=== PATIENT | female | born 1935 | race Caucasian/White ===

== ENCOUNTER 2016-02-07 14:35 | Emergency (ER) | payer MEDICARE, OTHER ==
--- NOTE | 2016-02-07 15:17 | ER Document Report ---
ED Medical Screen (RME) - General Chief Complaint: Cough Stated Complaint: COUGH/BACK PAIN Mode of Arrival: Ambulatory Information source: Patient Notes: Patient presents complaining of cough and low back pain for the past week. Patient denies any urinary symptoms or fever. Patient states cough has been productive. hx: Diabetes, COPD TRAVEL OUTSIDE OF THE [place] IN LAST 30 DAYS: No - Related Data Allergies/Adverse Reactions: gentamicin [Gentamicin] Allergy (Mild, Verified 01/29/16 00:19) UNK latex [Latex] Allergy (Mild, Verified 01/29/16 00:19) RASH metronidazole [From Flagyl] Allergy (Mild, Verified 01/29/16 00:19) Nausea Metronidazole HCl [From Flagyl] Allergy (Mild, Verified 01/29/16 00:19) Nausea Penicillins Allergy (Mild, Verified 01/29/16 00:19) THROAT SWELLS Past Medical History - Past Medical History Cardiac Medical History: Reports: Hx Coronary Artery Disease, Hx Hypertension - MEDICATED Denies: Hx Heart Attack Pulmonary Medical History: Reports: Hx Asthma - MEDICATED, Hx COPD - SPIRIVIA Denies: Hx Bronchitis, Hx Pneumonia Neurological Medical History: Denies: Hx Cerebrovascular Accident, Hx Seizures GI Medical History: Denies: Hx Hepatitis, Hx Hiatal Hernia, Hx Ulcer Musculoskeltal Medical History: Reports Hx Arthritis Infectious Medical History: Denies: Hx Hepatitis Past Surgical History: Reports: Hx Hysterectomy. Denies: Hx Mastectomy, Hx Open Heart Surgery, Hx Pacemaker - Immunizations Hx Diphtheria, Pertussis, Tetanus Vaccination: No - UNSURE Physical Exam - Vital signs Vitals: Pulse BP Pulse Ox 90 121/78 96 02/07/16 14:44 02/07/16 14:44 02/07/16 14:44 - Back Back: Tender - Lumbar paraspinal tenderness Course - Vital Signs Vital signs: Temp Pulse Resp BP Pulse Ox 93.0 F L 90 20 121/78 98 02/07/16 14:45 02/07/16 14:45 02/07/16 14:45 02/07/16 14:45 02/07/16 14:45
[2016-02-07 16:45] LABS: ABSOLUTE EOSINOPHILS # (AUTO) 0.2 10^3/uL (0.0-0.6); ABSOLUTE LYMPHOCYTES (AUTO) 2.1 10^3/uL (0.5-4.7); ABSOLUTE MONOCYTES (AUTO) 0.8 10^3/uL (0.1-1.4); BASOPHILS % (AUTO) 0.5 % (0-2); EOSINOPHILS % (AUTO) 2.8 % (0-6); HEMATOCRIT 45.7 % (36.0-47.0); HEMOGLOBIN 15.5 g/dL (12.0-15.5); HGB HCT DIFFERENCE 0.8; LYMPHOCYTES % (AUTO) 25.1 % (13-45); MEAN CORPUSCULAR HEMOGLOBIN 29.1 pg (27.0-33.4); MEAN CORPUSCULAR HGB CONC 33.9 g/dL (32.0-36.0); MEAN CORPUSCULAR VOLUME 86 fl (80-97); MONOCYTES % (AUTO) 10.3 % (3-13); RED BLOOD COUNT 5.31 10^6/uL (3.72-5.28); RED CELL DISTRIBUTION WIDTH 14.7 % (11.5-14.0); SEGMENTED NEUTROPHILS % (AUTO) 61.3 % (42-78); WHITE BLOOD COUNT 8.2 10^3/uL (4.0-10.5)
[2016-02-07 17:01] LABS: ALANINE AMINOTRANSFERASE 31 U/L (9-52); ALBUMIN 4.5 g/dL (3.5-5.0); ALKALINE PHOSPHATASE 92 U/L (38-126); ANION GAP 15 (5-19); ASPARTATE AMINO TRANSFERASE 24 U/L (14-36); BILIRUBIN,TOTAL 1.2 mg/dL (0.2-1.3); BLOOD UREA NITROGEN 16 mg/dL (7-20); CALCIUM 10.2 mg/dL (8.4-10.2); CARBON DIOXIDE 32 mmol/L (22-30); CHLORIDE 95 mmol/L (98-107); CREATININE RESULT 0.89 mg/dL (0.52-1.25); GLUCOSE 127 mg/dL (75-110); LIPASE 110.5 U/L (23-300); POTASSIUM 3.6 mmol/L (3.6-5.0); SODIUM 142.3 mmol/L (137-145); TOTAL PROTEIN 7.1 g/dL (6.3-8.2)
[2016-02-07 17:10] LABS: APPEARANCE,URINE SLIGHTLY-CLOUDY; BILIRUBIN,URINE NEGATIVE (NEGATIVE); GLUCOSE, URINE NEGATIVE (NEGATIVE); KETONES,URINE NEGATIVE (NEGATIVE); LEUKOCYTE ESTERASE,URINE LARGE (NEGATIVE); NITRITE,URINE NEGATIVE (NEGATIVE); PROTEIN,URINE NEGATIVE (NEGATIVE); URINE SPECIFIC GRAVITY 1.013; UROBILINOGEN,URINE NEGATIVE mg/dL (<2.0)
[2016-02-07 18:59] VITALS: BP 135/75
[2016-02-07] MEDS ORDERED: DOXYCYCLINE HYCLATE 100 MG TABLET PO ONE (18:59)
--- NOTE | 2016-02-07 19:13 | ER Document Report ---
ED General - General Chief Complaint: Cough Stated Complaint: COUGH/BACK PAIN Mode of Arrival: Ambulatory TRAVEL OUTSIDE OF THE [place] IN LAST 30 DAYS: No - HPI Patient complains to provider of: productive cough diffuse arthralgias and myalgias Notes: Patient with a history of COPD presents with a history of productive cough diffuse myalgias or arthralgias ongoing since January 28 was seen by primary ostomy care nurse and was given prednisone and call syrup with codeine states no improvement of symptoms. Three-day course of steroids ending on the . Patient denies fevers chills. Patient also states lower back pain possible and possible some dysuria. Otherwise patient by evaluation nontoxic looking able to form sentences. No signs of respiratory distress - Related Data Allergies/Adverse Reactions: gentamicin [Gentamicin] Allergy (Mild, Verified 01/29/16 00:19) UNK latex [Latex] Allergy (Mild, Verified 01/29/16 00:19) RASH metronidazole [From Flagyl] Allergy (Mild, Verified 01/29/16 00:19) Nausea Metronidazole HCl [From Flagyl] Allergy (Mild, Verified 01/29/16 00:19) Nausea Penicillins Allergy (Mild, Verified 01/29/16 00:19) THROAT SWELLS Past Medical History - General Information source: Patient, Relative - Social History Smoking Status: Former Smoker Chew tobacco use (# tins/day): No Frequency of alcohol use: None Drug Abuse: None Family History: None Patient has suicidal ideation: No Patient has homicidal ideation: No - Past Medical History Cardiac Medical History: Reports: Hx Coronary Artery Disease, Hx Hypertension - MEDICATED Denies: Hx Heart Attack Pulmonary Medical History: Reports: Hx Asthma - MEDICATED, Hx COPD - SPIRIVIA Denies: Hx Bronchitis, Hx Pneumonia Neurological Medical History: Denies: Hx Cerebrovascular Accident, Hx Seizures GI Medical History: Denies: Hx Hepatitis, Hx Hiatal Hernia, Hx Ulcer Musculoskeltal Medical History: Reports Hx Arthritis Infectious Medical History: Denies: Hx Hepatitis Past Surgical History: Reports: Hx Hysterectomy. Denies: Hx Mastectomy, Hx Open Heart Surgery, Hx Pacemaker - Immunizations Hx Diphtheria, Pertussis, Tetanus Vaccination: No - UNSURE Hx Pneumococcal Vaccination: 02/06/09 Review of Systems - Review of Systems Constitutional: No symptoms reported EENT: No symptoms reported Cardiovascular: No symptoms reported Respiratory: Cough, Sputum Gastrointestinal: No symptoms reported Genitourinary: Dysuria Female Genitourinary: No symptoms reported Musculoskeletal: Other - Myalgias or arthralgias Skin: No symptoms reported Hematologic/Lymphatic: No symptoms reported Neurological/Psychological: No symptoms reported -: Yes All other systems reviewed and negative Physical Exam - Vital signs Vitals: Pulse BP Pulse Ox 90 121/78 96 02/07/16 14:44 02/07/16 14:44 02/07/16 14:44 Interpretation: Normal - General General appearance: Appears well, Alert - HEENT Head: Normocephalic, Atraumatic Eyes: Normal Pupils: PERRL - Respiratory Respiratory status: No respiratory distress Chest status: Nontender Breath sounds: Normal Chest palpation: Normal - Cardiovascular Rhythm: Regular Heart sounds: Normal auscultation Murmur: No - Abdominal Inspection: Normal Distension: No distension Bowel sounds: Normal Tenderness: Nontender Organomegaly: No organomegaly - Back Back: Normal, Nontender - Extremities General upper extremity: Normal inspection, Nontender, Normal color, Normal ROM , Normal temperature General lower extremity: Normal inspection, Nontender, Normal color, Normal ROM , Normal temperature, Normal weight bearing. No: Teagan's sign - Neurological Neuro grossly intact: Yes Cognition: Normal Orientation: AAOx4 Kris Coma Scale Eye Opening: Spontaneous Kris Coma Scale Verbal: Oriented Kris Coma Scale Motor: Obeys Commands Kris Coma Scale Total: 15 Speech: Normal Motor strength normal: LUE, RUE, LLE, RLE Sensory: Normal - Psychological Associated symptoms: Normal affect, Normal mood - Skin Skin Temperature: Warm Skin Moisture: Dry Skin Color: Normal Course - Re-evaluation Re-evalutation: 02/08/16 02:59 Chest x-ray did not show any critical pathology. Laboratory did not show any critical etiology Patient does have significant history of COPD urinalysis showed possible signs of infection. Patient will be given a dose of doxycycline for her bronchitis and also should be able to treat her UTI. Patient was encouraged follow-up with her PCP. - Vital Signs Vital signs: Temp Pulse Resp BP Pulse Ox 98.7 F 80 20 135/75 H 97 02/07/16 19:39 02/07/16 19:39 02/07/16 19:39 02/07/16 19:39 02/07/16 19:39 - Laboratory Result Diagrams: 02/07/16 16:20 02/07/16 16:20 Laboratory results interpreted by me: 02/07/16 02/07/16 02/07/16 16:20 16:20 16:20 RBC 5.31 H RDW 14.7 H Chloride 95 L Carbon Dioxide 32 H Glucose 127 H Ur Leukocyte Esterase LARGE H Urine Ascorbic Acid 40 H Discharge - Discharge Clinical Impression: Bronchitis UTI (urinary tract infection) Qualifiers: Urinary tract infection type: site unspecified Hematuria presence: without hematuria Qualified Code(s): N39.0 - Urinary tract infection, site not specified Condition: Good Disposition: HOME, SELF-CARE Instructions: Bronchitis ([facility]), Urinary Tract Infection ([facility]) Additional Instructions: Take medication as prescribed. Please use your albuterol inhaler every 4 hours 2 puffs 4 for the next 5 days. You may also use honey at home to help out with your call Natural honey with whatever your favorite drink is. He may also continue to use your Mucinex or guaifenesin. Please follow-up with your primary care physician. Your urinalysis does show signs of possible infection the antibiotic prescribed also help out with this we will send her urine for culture please make sure that your primary care physician follows up with the urinary culture. Prescriptions: Doxycycline Hyclate [Vibramycin 100 mg Tablet] 100 mg PO BID #20 tablet Referrals: TERRA RAMOS PA-C [Primary Care Provider] - Follow up in 3-5 days
== END 2016-02-07 19:40 | disposition home or self-care (01) ==
LOC: ER 14:35
DX: J44.9 Chronic obstructive pulmonary disease, unspecified (principal); J45.909 Unspecified asthma, uncomplicated; N39.0 Urinary tract infection, site not specified; R05 Cough; M79.1 Myalgia; M25.50 Pain in unspecified joint; I25.10 Atherosclerotic heart disease of native coronary artery without angina pectoris; I10 Essential (primary) hypertension; Z91.040 Latex allergy status; Z88.1 Allergy status to other antibiotic agents; Z88.0 Allergy status to penicillin; Z87.891 Personal history of nicotine dependence
CPT/HCPCS: 99283; 36415; 87040; 87086; 83690; 85025; 80053; 81001; 71020; A9270

== ENCOUNTER → 2017-04-21 | Outpatient (CLI) | payer MEDICARE, OTHER ==
[2017-04-21 05:33] LABS: ABSOLUTE EOSINOPHILS # (AUTO) 0.2 10^3/uL (0.0-0.6); ABSOLUTE LYMPHOCYTES (AUTO) 0.9 10^3/uL (0.5-4.7); ABSOLUTE MONOCYTES (AUTO) 0.3 10^3/uL (0.1-1.4); ABSOLUTE NEUT (AUTO) 2.9 10^3/uL (1.7-8.2); BASOPHILS % (AUTO) 0.7 % (0-2); HEMATOCRIT 41.8 % (36.0-47.0); MEAN CORPUSCULAR HEMOGLOBIN 29.9 pg (27.0-33.4); MEAN CORPUSCULAR HGB CONC 33.4 g/dL (32.0-36.0); MEAN CORPUSCULAR VOLUME 90 fl (80-97); MONOCYTES % (AUTO) 6.9 % (3-13); PLATELET COUNT 235 10^3/uL (150-450); RED BLOOD COUNT 4.67 10^6/uL (3.72-5.28); SEGMENTED NEUTROPHILS % (AUTO) 67.4 % (42-78); TOTAL CELLS COUNTED % (AUTO) 100 %; WHITE BLOOD COUNT 4.2 10^3/uL (4.0-10.5)
[2017-04-21 05:48] LABS: ALANINE AMINOTRANSFERASE 33 U/L (9-52); ALBUMIN 4.3 g/dL (3.5-5.0); ALKALINE PHOSPHATASE 84 U/L (38-126); ANION GAP 11 (5-19); ASPARTATE AMINO TRANSFERASE 23 U/L (14-36); BILIRUBIN,DIRECT 0.4 mg/dL (0.0-0.4); BILIRUBIN,TOTAL 0.7 mg/dL (0.2-1.3); BLOOD UREA NITROGEN 14 mg/dL (7-20); CALCIUM 9.8 mg/dL (8.4-10.2); CARBON DIOXIDE 30 mmol/L (22-30); CHLORIDE 103 mmol/L (98-107); CHOLESTEROL 197.81 mg/dL (0-200); GLUCOSE 117 mg/dL (75-110); POTASSIUM 4.1 mmol/L (3.6-5.0); SODIUM 143.8 mmol/L (137-145); TOTAL PROTEIN 6.5 g/dL (6.3-8.2); TRIGLYCERIDES 112 mg/dL (<150)
[2017-04-21 06:00] LABS: DIRECT LDL 101 mg/dL (<100)
[2017-04-22 15:37] LABS: CREATININE URINE 116.5 mg/dL (Not Estab.); MICROALBUMIN URINE 47.5 ug/mL (Not Estab.)
== END ==
LOC: LAB 04:55
PROVIDERS: ATTEND Family Medicine Geriatric Medicine
DX: E11.8 Type 2 diabetes mellitus with unspecified complications (principal); R41.3 Other amnesia; E78.5 Hyperlipidemia, unspecified; E87.6 Hypokalemia; E55.9 Vitamin D deficiency, unspecified
CPT/HCPCS: 36415; 80053; 80061; 82043; 82306; 82570; 82607; 83036; 83735; 84443; 85025

== ENCOUNTER → 2017-04-24 | Outpatient (CLI) | payer MEDICARE, OTHER ==
--- NOTE | 2017-04-24 14:53 | RADIOLOGY REPORT (SQ) ---
EXAM DESCRIPTION: CT HEAD WITHOUT COMPLETED DATE/TIME: 04/24/2017 1:45 pm REASON FOR STUDY: OTHER AMNESIA (R41.3) R41.3 OTHER AMNESIA COMPARISON: CT head examined dated 06/23/2007. MRI head examination dated 07/09/2014. TECHNIQUE: Axial images acquired through the brain without intravenous contrast. Images reviewed wi th bone, brain and subdural windows. Images stored on PACS. All CT scanners at this facility use dose modulation, iterative reconstruction, and/or weight based d osing when appropriate to reduce radiation dose to as low as reasonably achievable (ALARA). [facility]: Dose Right [facility]: CareDose [facility]: Dose Right [facility]: Teradose 4D [facility]: Smart RECCY RADIATION DOSE: CT Rad equipment meets quality standard of care and radiation dose reduction techniq ues were employed. CTDIvol: 49.0 mGy. DLP: 783 mGy-cm. mGy. LIMITATIONS: None. FINDINGS: VENTRICLES: Asymmetric prominence of the ventricles, commensurate with the sulci. The ci sterns are patent. CEREBRUM: Chronic small vessel ischemic changes. No masses. No hemorrhage. No midline shift. No evidence for acute infarction. CEREBELLUM: No masses. No hemorrhage. No alteration of density. No evidence for acute infarction. Prominent cisterna magna, normal anatomic variant EXTRAAXIAL SPACES: Age related involutional changes. No fluid collections. No masses. ORBITS AND GLOBE: No intra- or extraconal masses. Normal contour of globe without masses. CALVARIUM: No fracture. PARANASAL SINUSES: No fluid or mucosal thickening. SOFT TISSUES: No mass or hematoma. OTHER: No other significant finding. IMPRESSION: 1 No acute intracranial abnormality. 2 Atrophy and chronic small vessel ischemic changes. EVIDENCE OF ACUTE STROKE: NO. COMMENT: Quality ID # [id number]: Final reports with documentation of one or more dose reduction techniques (e.g., Automated exposure control, adjustment of the mA and/or kV according to patient size, use of iterative reconstruction technique) TECHNICAL DOCUMENTATION: JOB ID: [id number] [employer]- All Rights Reserved Reading location - IP/workstation name: [email or web address]
== END ==
LOC: RAD 13:27
PROVIDERS: ATTEND Family Medicine Geriatric Medicine
DX: R41.3 Other amnesia (principal)
CPT/HCPCS: 70450

== ENCOUNTER 2017-08-08 23:22 | Emergency (ER) | payer MEDICARE, OTHER ==
[2017-08-09] MEDS ORDERED: LIDOCAINE 5% (700 MG) TRANSDERMAL ADH..PATCH TP ONE ×2 (00:41→05:12)
--- NOTE | 2017-08-09 00:51 | ER Document Report ---
ED Medical Screen (RME) - General Chief Complaint: Back and shoulder pain Stated Complaint: BACK PAIN Time Seen by Provider: 08/09/17 00:40 Mode of Arrival: Wheelchair Information source: Patient Notes: Patient complains of left sided upper back pain. Patient with chronic back pain which patient said is now worse and having spasms over the last few days. Denies any chest pain or shortness of breath. Exam: TTP to left thoracic area to the left of the spine. I have greeted and performed a rapid initial assessment of this patient. A comprehensive ED assessment and evaluation of the patient, analysis of test results and completion of the medical decision making process will be conducted by additional ED providers. TRAVEL OUTSIDE OF THE [place] IN LAST 30 DAYS: No - Related Data Allergies/Adverse Reactions: gentamicin [Gentamicin] Allergy (Mild, Verified 01/29/16 00:19) UNK latex [Latex] Allergy (Mild, Verified 01/29/16 00:19) RASH metronidazole [From Flagyl] Allergy (Mild, Verified 01/29/16 00:19) Nausea Metronidazole HCl [From Flagyl] Allergy (Mild, Verified 01/29/16 00:19) Nausea Penicillins Allergy (Mild, Verified 01/29/16 00:19) THROAT SWELLS Past Medical History - Past Medical History Cardiac Medical History: Reports: Hx Coronary Artery Disease, Hx Hypertension - MEDICATED Denies: Hx Heart Attack Pulmonary Medical History: Reports: Hx Asthma - MEDICATED, Hx COPD - SPIRIVIA Denies: Hx Bronchitis, Hx Pneumonia Neurological Medical History: Denies: Hx Cerebrovascular Accident, Hx Seizures GI Medical History: Denies: Hx Hepatitis, Hx Hiatal Hernia, Hx Ulcer Musculoskeltal Medical History: Reports Hx Arthritis Infectious Medical History: Denies: Hx Hepatitis Past Surgical History: Reports: Hx Hysterectomy. Denies: Hx Mastectomy, Hx Open Heart Surgery, Hx Pacemaker - Immunizations Hx Diphtheria, Pertussis, Tetanus Vaccination: No - UNSURE Physical Exam - Vital signs Vitals: Temp Pulse BP Pulse Ox 98.5 F 73 171/52 H 95 08/08/17 23:47 08/08/17 23:47 08/08/17 23:47 08/08/17 23:47 Course - Vital Signs Vital signs: Temp Pulse Resp BP Pulse Ox 98.7 F 68 16 173/72 H 95 08/09/17 05:33 08/09/17 05:33 08/09/17 05:33 08/09/17 05:33 08/09/17 05:33 Doctor's Discharge - Discharge Clinical Impression: Back muscle spasm Condition: Stable Disposition: HOME, SELF-CARE Additional Instructions: BACK PAIN: Three out of every four people will have an episode of disabling back pain during their lifetime. Most commonly the pain is due to straining of the muscles and ligaments in the low back. Usual treatment includes: (1) Rest on a firm surface. Avoid lying on your stomach. (2) Ice pack the painful area. After a few days, gentle heat may be used intermittently to relax the area, or ice packs can be continued. (3) Medication may be needed -- muscle relaxers and antiinflammatory medicines are commonly used. (4) As the back improves, exercises are prescribed to strengthen the back and abdominal muscles. Your doctor will advise you on the proper care for your back at each stage in your recovery. You may be better in a few days -- or healing may take several weeks. If new symptoms of a "herniated disc" (radiation of pain, numbness, or tingling down the back of the leg or weakness in the leg) occur, you should be re-examined. Further testing may be necessary. MUSCLE RELAXERS: Muscle relaxing medications are usually prescribed for acute muscle spasm or injury to the neck and back. They are often combined with antiinflammatory pain medication for increased relief. You may stop the muscle relaxer when the pain and stiffness have improved. Start the medication again if spasms recur. Muscle relaxers may cause drowsiness, especially with the first dose. Do not operate machinery or drive while under the effects of the medication. Most muscle relaxers last up to 24 hours. Do not combine the medication with alcohol. ICE PACKS: Apply ice packs frequently against the painful area. Many different schedules are recommended, such as "20 minutes on, 20 minutes off" or "one hour ice, two hours rest." If you need to work, you may need to go longer between ice treatments. You should plan to have the area ice packed AT LEAST one fourth of the time. The ice should be applied over the wrap, tape, or splint, or over a layer of cloth -- not directly against the skin. Some ice bags have a built-in cloth and can be put directly on the skin. WARM PACKS: After approximately two days, apply gentle heat (such as a heating pad or hot water bottle) for about 20 to 30 minutes about every two hours -- at least four times daily. Warmth and elevation will help you make a more rapid recovery , and will ease the pain considerably. Do not use HOT heat, and never apply heat for longer than 30 minutes. The continuous heat can invisibly damage skin and muscles -- even when no burn is seen on the surface. Damaged muscles can make you MORE sore. FOLLOW-UP CARE: If you have been referred to a physician for follow-up care, call the physician s office for an appointment as you were instructed or within the next two days. If you experience worsening or a significant change in your symptoms, notify the physician immediately or return to the Emergency Department at any time for re-evaluation. Prescriptions: Lidocaine [Lidoderm 5% (700 mg) Transdermal Patch] 1 patch TP DAILY #10 adh..patch Methocarbamol [Robaxin 500 mg Tablet] 500 mg PO Q4H PRN #15 tablet PRN Reason: Naproxen [Naprosyn 250 mg Tablet] 500 mg PO Q12H PRN #10 tablet PRN Reason: Forms: Elevated Blood Pressure Referrals: SANDER MCKEE MD [COMMUNITY BASED STAFF] - Follow up as needed
--- NOTE | 2017-08-09 02:08 | RADIOLOGY REPORT (SQ) ---
EXAM DESCRIPTION: XR CHEST 2 VIEWS COMPLETED DATE/TME: 08/09/2017 00:43 CLINICAL HISTORY: 82 years Female, left scapular pain COMPARISON: 1.1.17 NUMBER OF VIEWS/TECHNIQUE: 1/AP FINDINGS: Adequate lung volume, clear parenchyma, normal cardiac silhouette, atherosclerosis, and intact bony thorax. IMPRESSION: No acute cardiopulmonary findings.
--- NOTE | 2017-08-09 04:42 | ER Document Report ---
ED Neck/Back Problem - General Chief Complaint: Back and shoulder pain Stated Complaint: BACK PAIN Time Seen by Provider: 08/09/17 00:40 Mode of Arrival: Wheelchair Notes: Patient is an 82-year-old female presents with 2 days of worsening symptoms of her chronic left back and shoulder pain. She describes as a sharp and spasming sensation that is worse when she moves her left shoulder. She denies chest pain , shortness of breath, numbness, tingling, injury, neck pain or rash. TRAVEL OUTSIDE OF THE [place] IN LAST 30 DAYS: No - Related Data Allergies/Adverse Reactions: gentamicin [Gentamicin] Allergy (Mild, Verified 01/29/16 00:19) UNK latex [Latex] Allergy (Mild, Verified 01/29/16 00:19) RASH metronidazole [From Flagyl] Allergy (Mild, Verified 01/29/16 00:19) Nausea Metronidazole HCl [From Flagyl] Allergy (Mild, Verified 01/29/16 00:19) Nausea Penicillins Allergy (Mild, Verified 01/29/16 00:19) THROAT SWELLS Past Medical History - General Information source: Patient - Social History Smoking Status: Unknown if Ever Smoked Family History: None Patient has suicidal ideation: No Patient has homicidal ideation: No - Past Medical History Cardiac Medical History: Reports: Hx Coronary Artery Disease, Hx Hypertension - MEDICATED Denies: Hx Heart Attack Pulmonary Medical History: Reports: Hx Asthma - MEDICATED, Hx COPD - SPIRIVIA Denies: Hx Bronchitis, Hx Pneumonia Neurological Medical History: Denies: Hx Cerebrovascular Accident, Hx Seizures Renal/ Medical History: Denies: Hx Peritoneal Dialysis GI Medical History: Denies: Hx Hepatitis, Hx Hiatal Hernia, Hx Ulcer Musculoskeltal Medical History: Reports Hx Arthritis Infectious Medical History: Denies: Hx Hepatitis Past Surgical History: Reports: Hx Hysterectomy. Denies: Hx Mastectomy, Hx Open Heart Surgery, Hx Pacemaker - Immunizations Hx Diphtheria, Pertussis, Tetanus Vaccination: No - UNSURE Hx Pneumococcal Vaccination: 02/06/09 Review of Systems - Review of Systems Notes: REVIEW OF SYSTEMS: CONSTITUTIONAL: -fevers, -chills EENT: -eye pain, -difficulty swallowing, -nasal congestion CARDIOVASCULAR: -chest pain, -syncope. RESPIRATORY: -cough, -SOB GASTROINTESTINAL: -abdominal pain, -nausea, -vomiting, -diarrhea GENITOURINARY: -dysuria, -hematuria MUSCULOSKELETAL: +left upper back pain, -neck pain SKIN: -rash or skin lesions. HEMATOLOGIC: -easy bruising or bleeding. LYMPHATIC: -swollen, enlarged glands. NEUROLOGICAL: -altered mental status or loss of consciousness, -headache, - neurologic symptoms PSYCHIATRIC: -anxiety, -depression. ALL OTHER SYSTEMS REVIEWED AND NEGATIVE. Physical Exam - Vital signs Vitals: Temp Pulse BP Pulse Ox 98.5 F 73 171/52 H 95 08/08/17 23:47 08/08/17 23:47 08/08/17 23:47 08/08/17 23:47 - Notes Notes: PHYSICAL EXAMINATION: GENERAL: Well-appearing, well-nourished and in no acute distress. HEAD: Atraumatic, normocephalic. EYES: Pupils equal round and reactive to light, extraocular movements intact, sclera anicteric, conjunctiva are normal. ENT: nares patent, oropharynx clear without exudates. Moist mucous membranes. NECK: Normal range of motion, supple without lymphadenopathy LUNGS: Breath sounds clear to auscultation bilaterally and equal. No wheezes rales or rhonchi. HEART: Regular rate and rhythm without murmurs ABDOMEN: Soft, nontender, normoactive bowel sounds. No guarding, no rebound. No masses appreciated. EXTREMITIES: Normal range of motion, no pitting or edema. No cyanosis. Strong distal pulses. BACK: Spasm of her left upper trapezius, no midline tenderness. NEUROLOGICAL: Cranial nerves grossly intact. Normal speech, normal gait. Normal sensory and motor exams. PSYCH: Normal mood, normal affect. SKIN: Warm, Dry, normal turgor, no rashes or lesions noted. Course - Re-evaluation Re-evalutation: Patient with acute on chronic upper back pain and spasming. EKG does not show any acute ischemic changes. After Lidoderm patch, anti-inflammatories and Robaxin, is presently resolved she is asymptomatic. She has strong distal pulses and her symptoms are atypical for aortic dissection at this time. Given very strict return precautions and she understands. - Vital Signs Vital signs: Temp Pulse Resp BP Pulse Ox 98.5 F 73 171/52 H 95 08/08/17 23:47 08/08/17 23:47 08/08/17 23:47 08/08/17 23:47 - EKG Interpretation by Me When compared to previous EKG there are: No significant change Discharge - Discharge Clinical Impression: Back muscle spasm Condition: Stable Disposition: HOME, SELF-CARE Additional Instructions: BACK PAIN: Three out of every four people will have an episode of disabling back pain during their lifetime. Most commonly the pain is due to straining of the muscles and ligaments in the low back. Usual treatment includes: (1) Rest on a firm surface. Avoid lying on your stomach. (2) Ice pack the painful area. After a few days, gentle heat may be used intermittently to relax the area, or ice packs can be continued. (3) Medication may be needed -- muscle relaxers and antiinflammatory medicines are commonly used. (4) As the back improves, exercises are prescribed to strengthen the back and abdominal muscles. Your doctor will advise you on the proper care for your back at each stage in your recovery. You may be better in a few days -- or healing may take several weeks. If new symptoms of a "herniated disc" (radiation of pain, numbness, or tingling down the back of the leg or weakness in the leg) occur, you should be re-examined. Further testing may be necessary. MUSCLE RELAXERS: Muscle relaxing medications are usually prescribed for acute muscle spasm or injury to the neck and back. They are often combined with antiinflammatory pain medication for increased relief. You may stop the muscle relaxer when the pain and stiffness have improved. Start the medication again if spasms recur. Muscle relaxers may cause drowsiness, especially with the first dose. Do not operate machinery or drive while under the effects of the medication. Most muscle relaxers last up to 24 hours. Do not combine the medication with alcohol. ICE PACKS: Apply ice packs frequently against the painful area. Many different schedules are recommended, such as "20 minutes on, 20 minutes off" or "one hour ice, two hours rest." If you need to work, you may need to go longer between ice treatments. You should plan to have the area ice packed AT LEAST one fourth of the time. The ice should be applied over the wrap, tape, or splint, or over a layer of cloth -- not directly against the skin. Some ice bags have a built-in cloth and can be put directly on the skin. WARM PACKS: After approximately two days, apply gentle heat (such as a heating pad or hot water bottle) for about 20 to 30 minutes about every two hours -- at least four times daily. Warmth and elevation will help you make a more rapid recovery , and will ease the pain considerably. Do not use HOT heat, and never apply heat for longer than 30 minutes. The continuous heat can invisibly damage skin and muscles -- even when no burn is seen on the surface. Damaged muscles can make you MORE sore. FOLLOW-UP CARE: If you have been referred to a physician for follow-up care, call the physician s office for an appointment as you were instructed or within the next two days. If you experience worsening or a significant change in your symptoms, notify the physician immediately or return to the Emergency Department at any time for re-evaluation. Prescriptions: Lidocaine [Lidoderm 5% (700 mg) Transdermal Patch] 1 patch TP DAILY #10 adh..patch Methocarbamol [Robaxin 500 mg Tablet] 500 mg PO Q4H PRN #15 tablet PRN Reason: Naproxen [Naprosyn 250 mg Tablet] 500 mg PO Q12H PRN #10 tablet PRN Reason: Forms: Elevated Blood Pressure Referrals: SANDER MCKEE MD [Primary Care Provider] - Follow up as needed
[2017-08-09] MEDS ORDERED: NAPROXEN 250 MG TABLET PO ONE (04:51)
[2017-08-09] MEDS ORDERED: METHOCARBAMOL 500 MG TABLET PO ONE (04:51)
[2017-08-09 05:34] VITALS: BP 173/72
--- NOTE | 2017-08-09 08:55 | EKG REPORT ---
SEVERITY:- ABNORMAL ECG - SINUS RHYTHM INCOMPLETE LEFT BUNDLE BRANCH BLOCK LEFT VENTRICULAR HYPERTROPHY INFERIOR INFARCT, OLD ANTERIOR INFARCT, OLD : Confirmed by: Bobo Waddell MD 09-Aug-2017 08:54:39
== END 2017-08-09 05:33 | disposition home or self-care (01) ==
LOC: ER 23:22
DX: M62.830 Muscle spasm of back (principal); M25.512 Pain in left shoulder; I10 Essential (primary) hypertension; J44.9 Chronic obstructive pulmonary disease, unspecified; Z91.040 Latex allergy status; Z88.0 Allergy status to penicillin; Z90.710 Acquired absence of both cervix and uterus
CPT/HCPCS: 93005; 99284; 71046; 93010; A9270 ×2

== ENCOUNTER 2017-11-19 10:23 | Emergency (ER) | payer MEDICARE, OTHER ==
--- NOTE | 2017-11-19 10:39 | ER Document Report ---
ED General - General Chief Complaint: Head Injury Stated Complaint: FALL/HEAD INJURY Time Seen by Provider: 11/19/17 10:34 Notes: Patient is a 82-year-old female that presents to the emergency department for chief complaint of head injury after fall. Patient states that around 230 this morning, she was coming back into the bedroom from the bathroom, and she had tripped and fell and hit her head on the floor, causing some bleeding from the left side of her head. She denies loss of consciousness. She was able to get back up to her feet, and she has been walking since then. She states she mainly fell onto the left side. She has some complaint of pain in the left ribs , that are tender to palpate. She rates his pain currently as a 4 out of 10, as an aching sensation and worse to palpate, denies any numbness, tingling or weakness. Denies any headache at this time. She also denies having any nausea , vomiting or visual changes. Past Medical History: Diabetes mellitus, remote breast cancer history Past Surgical History: Lumpectomy kidney surgery as a child Social History: Denies tobacco, alcohol or drug use Family History: Reviewed and noncontributory for presenting illness Allergies: Reviewed, see documented allergy list. REVIEW OF SYSTEMS: Unless otherwise stated in this report the patient's positive and negative responses for review of systems for constitutional, eyes, ENT, cardiovascular, respiratory, gastrointestinal, neurological, genitourinary, musculoskeletal, and integumentary systems and related systems to the presenting problem are either as stated in the HPI or were not pertinent or were negative for the symptoms and/or complaints related to the presenting medical problem. PHYSICAL EXAMINATION: Vital signs reviewed, nursing noted reviewed. GENERAL: Well-appearing, elderly female, and in no acute distress. HEAD: There is a 3 cm scalp laceration noted to the left side of the scalp, no active bleeding at this time, normocephalic. EYES: Eyes appear normal, extraocular movements intact, sclera anicteric, conjunctiva are normal. ENT: nares patent, oropharynx clear without exudates. Moist mucous membranes. NECK: supple without lymphadenopathy, no midline tenderness to palpation LUNGS: Breath sounds clear to auscultation bilaterally and equal. No wheezes rales or rhonchi. There is reproducible left chest wall and left lateral rib tenderness, no ecchymosis noted, no flail chest. HEART: Regular rate and rhythm without murmurs ABDOMEN: Soft, nontender, normoactive bowel sounds. No rebound, guarding, or rigidity. No masses appreciated. EXTREMITIES: Nontender, good range of motion, no pitting or edema. Patient gait is normal, and ambulating well, with a cane NEUROLOGICAL: No focal neurological deficits. Moves all extremities spontaneously Motor and sensory grossly intact on exam. PSYCH: Normal mood, normal affect. SKIN: Warm, Dry, normal turgor, no rashes or lesions noted on exposed skin TRAVEL OUTSIDE OF THE [place] IN LAST 30 DAYS: No - Related Data Allergies/Adverse Reactions: gentamicin [Gentamicin] Allergy (Mild, Verified 01/29/16 00:19) UNK latex [Latex] Allergy (Mild, Verified 01/29/16 00:19) RASH metronidazole [From Flagyl] Allergy (Mild, Verified 01/29/16 00:19) Nausea Metronidazole HCl [From Flagyl] Allergy (Mild, Verified 01/29/16 00:19) Nausea Penicillins Allergy (Mild, Verified 01/29/16 00:19) THROAT SWELLS Past Medical History - Social History Smoking Status: Never Smoker Family History: None, Reviewed & Not Pertinent - Past Medical History Cardiac Medical History: Reports: Hx Coronary Artery Disease, Hx Hypertension - MEDICATED Denies: Hx Heart Attack Pulmonary Medical History: Reports: Hx Asthma - MEDICATED, Hx COPD - SPIRIVIA Denies: Hx Bronchitis, Hx Pneumonia Neurological Medical History: Denies: Hx Cerebrovascular Accident, Hx Seizures Renal/ Medical History: Denies: Hx Peritoneal Dialysis GI Medical History: Denies: Hx Hepatitis, Hx Hiatal Hernia, Hx Ulcer Musculoskeletal Medical History: Reports Hx Arthritis Infectious Medical History: Denies: Hx Hepatitis Past Surgical History: Reports: Hx Hysterectomy. Denies: Hx Mastectomy, Hx Open Heart Surgery, Hx Pacemaker - Immunizations Hx Diphtheria, Pertussis, Tetanus Vaccination: No - UNSURE Hx Pneumococcal Vaccination: 02/06/09 Physical Exam - Vital signs Vitals: Temp Pulse Resp BP Pulse Ox 97.5 F 74 16 153/54 H 97 11/19/17 10:29 11/19/17 10:29 11/19/17 10:29 11/19/17 10:29 11/19/17 10:29 Course - Re-evaluation Re-evalutation: Patient seen and examined vital signs reviewed. Laboratory data and imaging were ordered as appropriate for the patient's presenting symptoms and complaint, with consideration of any critical or life threatening conditions that may be associated with their obtained history and exam as noted above. CT imaging of the head and cervical spine as well as x- rays of the ribs were obtained Patient was treated with Tylenol, and a full repair, after images reviewed, repaired as described in detailed note Results were reviewed when available and demonstrated negative CT of the head and cervical spine, no pneumothorax, or fracture of the ribs noted on x-ray. The patient was re-evaluated and was stable, tolerated laceration repair well Evaluation was most consistent with closed head injury and scalp laceration as well as rib contusion Results were discussed with the patient at this point, after careful consideration I feel that that patient can be discharged from the emergency department, the patient was educated treatments and reasons to return to the emergency department based on their presumed diagnosis as noted above, they were advised to followup with a primary care physician in 2-3 days. Patient was agreeable to plan of care. *Note is created using voice recognition software and may contain spelling, syntax or grammatical errors. Cervical Spine CT 11/19/17 10:39 IMPRESSION: CHRONIC DEGENERATIVE CHANGES. NO ACUTE FINDINGS. Head CT 11/19/17 10:39 IMPRESSION: CHRONIC CHANGES OF ATROPHY AND MICROVASCULAR ISCHEMIA. NO ACUTE PROCESS. EVIDENCE OF ACUTE STROKE: NO. Ribs w/Chest X-Ray 11/19/17 10:39 IMPRESSION: NO PNEUMOTHORAX. NO DISPLACED RIB FRACTURES. - Vital Signs Vital signs: Temp Pulse Resp BP Pulse Ox 97.6 F 81 18 155/53 H 98 11/19/17 12:08 11/19/17 12:08 11/19/17 12:08 11/19/17 12:08 11/19/17 12:08 Procedures - Laceration/Wound Repair Left Head Wound length (cm): 3 Wound's Depth, Shape: Linear, Contused tissue Laceration pre-procedure: Sterile PPE Liset whitfield applied Anesthetic type: 1% Lidocaine Volume Anesthetic (mLs): 2 Wound explored: Clean Irrigated w/ Saline (mLs): 250 Wound Repaired With: Matias Number of Sutures: 10 Layer Closure?: No Notes: Wound was complex,the fact to be to remove a clot, that was within the scalp wound, which led to venous bleeding, pressure was applied, and matias were placed, tendon total, to obtain hemostasis, patient did have a cephalohematoma afterwards, but tolerated the procedure well. Discharge - Discharge Clinical Impression: Closed head injury Qualifiers: Encounter type: initial encounter Qualified Code(s): S09.90XA - Unspecified injury of head, initial encounter Scalp laceration Qualifiers: Encounter type: initial encounter Qualified Code(s): S01.01XA - Laceration without foreign body of scalp, initial encounter Rib contusion Qualifiers: Encounter type: initial encounter Laterality: left Qualified Code(s): S20.212A - Contusion of left front wall of thorax, initial encounter Condition: Stable Disposition: HOME, SELF-CARE Instructions: Laceration Care ([facility]), Scalp Laceration ([facility]), Tetanus Immunization Given ([facility]) Additional Instructions: Please return to the emergency department in 7 days to have your matias removed , you may apply warm or cool compresses for 15-20 minutes on and take off for 15 -20 minutes to help relieve the swelling on your head. Keep the area clean and dry, you can wash her hair, but do not scrub this area, and pat it dry as best as possible. Referrals: SANDER MCKEE MD [COMMUNITY BASED STAFF] - Follow up in 1 week (or your primary care. )
[2017-11-19] MEDS ORDERED: ACETAMINOPHEN 325 MG TABLET PO ONE (10:40)
[2017-11-19] MEDS ORDERED: DIPH/PERTUSS(ACELL)/TETANUS VAC/PF 0.5 ML SYR (>=10YO) IM ONE (10:41)
[2017-11-19] MEDS ORDERED: LIDOCAINE 1% INJ-PF (10 MG/ML) 30 ML SDV INJ ONE (10:41)
--- NOTE | 2017-11-19 11:08 | RADIOLOGY REPORT (SQ) ---
EXAM DESCRIPTION: CT HEAD WITHOUT COMPLETED DATE/TIME: 11/19/2017 10:51 am REASON FOR STUDY: fall, head injury COMPARISON: None. TECHNIQUE: Axial images acquired through the brain without intravenous contrast. Images reviewed wi th bone, brain and subdural windows. Additional sagittal and coronal reconstructions were generated. Images stored on PACS. All CT scanners at this facility use dose modulation, iterative reconstruction, and/or weight based d osing when appropriate to reduce radiation dose to as low as reasonably achievable (ALARA). [facility]: Dose Right [facility]: CareDose [facility]: Dose Right [facility]: Teradose 4D [facility]: Smart [employer]. RADIATION DOSE: CT Rad equipment meets quality standard of care and radiation dose reduction techniq ues were employed. CTDIvol: 53.2 mGy. DLP: 964 mGy-cm.mGy. LIMITATIONS: None. FINDINGS: VENTRICLES: Prominent. CEREBRUM: No masses. No hemorrhage. No midline shift. Areas of low density in the white matter mos t likely due to chronic micro-vascular ischemic change. No evidence for acute infarction. CEREBELLUM: No masses. No hemorrhage. No alteration of density. No evidence for acute infarction. EXTRAAXIAL SPACES: Age-related involutional change. No fluid collections. No masses. ORBITS AND GLOBE: No intra- or extraconal masses. Normal contour of globe without masses. CALVARIUM: No fracture. PARANASAL SINUSES: No fluid or mucosal thickening. SOFT TISSUES: No mass or hematoma. OTHER: No other significant finding. IMPRESSION: CHRONIC CHANGES OF ATROPHY AND MICROVASCULAR ISCHEMIA. NO ACUTE PROCESS. EVIDENCE OF ACUTE STROKE: NO. TECHNICAL DOCUMENTATION: JOB ID: [id number] Quality ID # [id number]: Final reports with documentation of one or more dose reduction techniques (e.g., Au tomated exposure control, adjustment of the mA and/or kV according to patient size, use of iterative reconstruction technique) 2010 [employer]- All Rights Reserved Reading location - IP/workstation name: [email or web address]
--- NOTE | 2017-11-19 11:14 | RADIOLOGY REPORT (SQ) ---
EXAM DESCRIPTION: CT CERVICAL SPINE WITHOUT COMPLETED DATE/TIME: 11/19/2017 10:51 am REASON FOR STUDY: fall, head injury COMPARISON: None. TECHNIQUE: Axial images acquired through the cervical spine without intravenous contrast. Images re viewed with lung, soft tissue and bone windows. Reconstructed coronal and sagittal MPR images review ed. Images stored on PACS. All CT scanners at this facility use dose modulation, iterative reconstruction, and/or weight based d osing when appropriate to reduce radiation dose to as low as reasonably achievable (ALARA). [facility]: Dose Right [facility]: CareDose [facility]: Dose Right [facility]: Teradose 4D [facility]: Smart [employer] RADIATION DOSE: CT Rad equipment meets quality standard of care and radiation dose reduction techniq ues were employed. CTDIvol: 11.7 mGy. DLP: 211 mGy-cm. mGy. LIMITATIONS: None. FINDINGS: ALIGNMENT: Grade 1 anterolisthesis C3 relative to C4. MINERALIZATION: Normal. VERTEBRAL BODIES: No fractures or dislocation. DISCS: Multilevel disc space narrowing with osteophytes. FACETS, LATERAL MASSES, POSTERIOR ELEMENTS: Facet arthropathy. No fractures. No dislocation. No ac emmonak findings. HARDWARE: None in the spine. VISUALIZED RIBS: No fractures. LUNG APICES AND SOFT TISSUES: No significant or acute findings. OTHER: No other significant finding. IMPRESSION: CHRONIC DEGENERATIVE CHANGES. NO ACUTE FINDINGS. TECHNICAL DOCUMENTATION: JOB ID: [id number] Quality ID # [id number]: Final reports with documentation of one or more dose reduction techniques (e.g., Au tomated exposure control, adjustment of the mA and/or kV according to patient size, use of iterative reconstruction technique) 2010 [employer] All Rights Reserved Reading location - IP/workstation name: [email or web address]
--- NOTE | 2017-11-19 11:25 | RADIOLOGY REPORT (SQ) ---
EXAM DESCRIPTION: RIBS LEFT W/PA CHEST COMPLETED DATE/TIME: 11/19/2017 10:56 am REASON FOR STUDY: fall, left rib pain COMPARISON: None. TECHNIQUE: Frontal view of the chest and additional views of the left ribs acquired. NUMBER OF VIEWS: Three view. LIMITATIONS: None. FINDINGS: FRONTAL CXR: No pneumothorax. No pleural effusion. No atelectasis or infiltrates. RIBS: No displaced rib fractures. No lytic or blastic bony lesions. OTHER: No other significant finding. IMPRESSION: NO PNEUMOTHORAX. NO DISPLACED RIB FRACTURES. COMMENT: SITE OF TRAUMA/COMPLAINT MARKED/STAMP COMPLETED: NO. TECHNICAL DOCUMENTATION: JOB ID: [id number] [employer]- All Rights Reserved Reading location - IP/workstation name: [email or web address]
[2017-11-19 12:10] VITALS: BP 155/53
== END 2017-11-19 12:08 | disposition home or self-care (01) ==
LOC: ER 10:23
PROC: 0HQ0XZZ Repair Scalp Skin, External Approach (ICD-10-PCS; principal; 2017-11-19)
DX: S09.90XA Unspecified injury of head, initial encounter (principal); S01.01XA Laceration without foreign body of scalp, initial encounter; S20.212A Contusion of left front wall of thorax, initial encounter; W01.10XA Fall on same level from slipping, tripping and stumbling with subsequent striking against unspecified object, initial encounter; Y92.008 Other place in unspecified non-institutional (private) residence as the place of occurrence of the external cause; R07.81 Pleurodynia; E11.9 Type 2 diabetes mellitus without complications; I25.10 Atherosclerotic heart disease of native coronary artery without angina pectoris; I10 Essential (primary) hypertension; J44.9 Chronic obstructive pulmonary disease, unspecified; Z79.899 Other long term (current) drug therapy
CPT/HCPCS: 99284; 90471; 71101; 70450; 72125; 90715; 12002; A9270

== ENCOUNTER 2018-03-02 17:30 | Emergency (ER) | payer MEDICARE, OTHER ==
[2018-03-02] MEDS ORDERED: IPRATROPIUM/ALBUTEROL 0.5-2.5 MG/3 ML AMPUL NEB ONE (20:23)
--- NOTE | 2018-03-02 20:26 | ER Document Report ---
ED Medical Screen (RME) - General Chief Complaint: Cough Stated Complaint: COUGH/FAST HEART RATE/DIFFICULTY BREATHING Time Seen by Provider: 03/02/18 20:23 Primary Care Provider: BRITTNEE GIBBS PA-C [Primary Care Provider] - Follow up as needed Notes: 82-year-old female that comes to the emergency department after being referred by primary care, patient has been sick for almost 2 weeks now with cough, intermittent wheezing, weakness, decreased appetite, losing about 7 pounds. No fevers. Patient reports current shortness of breath. Former smoker, history of COPD, has rescue inhaler she is using, daughter states that she refuses to use her Spiriva and Atrovent at home, not on home oxygen. Already on doxycycline and prednisone by primary care, has already taken doses of these for today. TRAVEL OUTSIDE OF THE [place] IN LAST 30 DAYS: No - Related Data Allergies/Adverse Reactions: gentamicin [Gentamicin] Allergy (Mild, Verified 03/02/18 17:33) UNK latex [Latex] Allergy (Mild, Verified 03/02/18 17:33) RASH metronidazole [From Flagyl] Allergy (Mild, Verified 03/02/18 17:33) Nausea Metronidazole HCl [From Flagyl] Allergy (Mild, Verified 03/02/18 17:33) Nausea Penicillins Allergy (Mild, Verified 03/02/18 17:33) THROAT SWELLS Past Medical History - Past Medical History Cardiac Medical History: Reports: Hx Coronary Artery Disease, Hx Hypertension - MEDICATED Denies: Hx Heart Attack Pulmonary Medical History: Reports: Hx Asthma - MEDICATED, Hx COPD - SPIRIVIA Denies: Hx Bronchitis, Hx Pneumonia Neurological Medical History: Denies: Hx Cerebrovascular Accident, Hx Seizures Renal/ Medical History: Denies: Hx Peritoneal Dialysis GI Medical History: Denies: Hx Hepatitis, Hx Hiatal Hernia, Hx Ulcer Musculoskeltal Medical History: Reports Hx Arthritis Infectious Medical History: Denies: Hx Hepatitis Past Surgical History: Reports: Hx Hysterectomy. Denies: Hx Mastectomy, Hx Open Heart Surgery, Hx Pacemaker - Immunizations Hx Diphtheria, Pertussis, Tetanus Vaccination: No - UNSURE Physical Exam - Vital signs Vitals: Temp Pulse Resp BP Pulse Ox 97.8 F 91 22 H 139/81 H 94 03/02/18 17:57 03/02/18 17:57 03/02/18 17:57 03/02/18 17:57 03/02/18 17:57 - Respiratory Respiratory status: No: Depressed respirations, Labored Breath sounds: Decreased air movement, Wheezing Course - Re-evaluation Re-evalutation: Initial pulse oxygen saturation is 94% on room air. Patient does have decreased breath sounds, congested cough, mild expiratory wheezes, however she has no tachypnea, labored breathing, or signs of distress. She speaks in full sentences. I have greeted and performed a rapid initial assessment of this patient. A comprehensive ED assessment and evaluation of the patient, analysis of test results and completion of the medical decision making process will be conducted by additional ED providers. - Vital Signs Vital signs: Temp Pulse Resp BP Pulse Ox 97.8 F 91 22 H 139/81 H 94 03/02/18 17:57 03/02/18 17:57 03/02/18 17:57 03/02/18 17:57 03/02/18 17:57 Doctor's Discharge - Discharge Referrals: BRITTNEE GIBBS PA-C [Primary Care Provider] - Follow up as needed
[2018-03-02 22:20] LABS: ABSOLUTE BASOPHILS # (AUTO) 0.1 10^3/uL (0.0-0.2); ABSOLUTE EOSINOPHILS # (AUTO) 0.2 10^3/uL (0.0-0.6); ABSOLUTE LYMPHOCYTES (AUTO) 3.6 10^3/uL (0.5-4.7); ABSOLUTE MONOCYTES (AUTO) 0.9 10^3/uL (0.1-1.4); ABSOLUTE NEUT (AUTO) 5.9 10^3/uL (1.7-8.2); BASOPHILS % (AUTO) 0.9 % (0-2); EOSINOPHILS % (AUTO) 2.2 % (0-6); HEMATOCRIT 47.6 % (36.0-47.0); HEMOGLOBIN 16.3 g/dL (12.0-15.5); LYMPHOCYTES % (AUTO) 33.8 % (13-45); MEAN CORPUSCULAR HEMOGLOBIN 30.4 pg (27.0-33.4); MEAN CORPUSCULAR HGB CONC 34.1 g/dL (32.0-36.0); MEAN CORPUSCULAR VOLUME 89 fl (80-97); MONOCYTES % (AUTO) 8.2 % (3-13); PLATELET COUNT 423 10^3/uL (150-450); RED BLOOD COUNT 5.36 10^6/uL (3.72-5.28); RED CELL DISTRIBUTION WIDTH 13.9 % (11.5-14.0); SEGMENTED NEUTROPHILS % (AUTO) 54.9 % (42-78); TOTAL CELLS COUNTED % (AUTO) 100 %; VENOUS BLOOD BASE EXCESS 5.4 mmol/L; VENOUS BLOOD PCO2 53.6 mmHg (35-63); VENOUS BLOOD PH 7.39 (7.30-7.42); WHITE BLOOD COUNT 10.8 10^3/uL (4.0-10.5)
[2018-03-02 22:30] LABS: AMORPHOUS SEDIMENT,URINE 1+ /HPF; APPEARANCE,URINE CLOUDY; BILIRUBIN,URINE NEGATIVE (NEGATIVE); GLUCOSE, URINE NEGATIVE (NEGATIVE); KETONES,URINE TRACE mg/dL (NEGATIVE); LEUKOCYTE ESTERASE,URINE SMALL (NEGATIVE); NITRITE,URINE NEGATIVE (NEGATIVE); PROTEIN,URINE 30 mg/dL (NEGATIVE); URINE SPECIFIC GRAVITY 1.016; UROBILINOGEN,URINE NEGATIVE mg/dL (<2.0)
[2018-03-02 22:32] LABS: COLOR,URINE YELLOW
--- NOTE | 2018-03-02 22:54 | EKG REPORT ---
SEVERITY:- ABNORMAL ECG - SINUS RHYTHM SUPRAVENTRICULAR BIGEMINY LVH WITH SECONDARY REPOLARIZATION ABNORMALITY INFERIOR INFARCT, AGE INDETERMINATE ANTERIOR INFARCT, AGE INDETERMINATE ILBBB : Confirmed by: Lalita Hair MD 02-Mar-2018 22:53:18
--- NOTE | 2018-03-02 23:35 | RADIOLOGY REPORT (SQ) ---
EXAM DESCRIPTION: XR CHEST 1 VIEW COMPLETED DATE/TME: 03/02/2018 22:49 CLINICAL HISTORY: 82 years, Female, sob, cough COMPARISON: 11/19/2017 chest x-ray NUMBER OF VIEWS: 1 TECHNIQUE: Portable chest LIMITATIONS: None. FINDINGS: The heart size is normal. Osteopenia. Atheromatous change thoracic aorta. Lungs are clear. No pneumothorax IMPRESSION: No acute cardiopulmonary process copyright 2010 [employer]- All Rights Reserved
[2018-03-02 23:54] LABS: BLOOD UREA NITROGEN 15 mg/dL (7-20); CALCIUM 9.9 mg/dL (8.4-10.2); GLUCOSE 118 mg/dL (75-110)
[2018-03-02 23:55] LABS: A TYPE INFLUENZA AG NEGATIVE (NEGATIVE); ALANINE AMINOTRANSFERASE 44 U/L (9-52); ALBUMIN 3.8 g/dL (3.5-5.0); ALKALINE PHOSPHATASE 75 U/L (38-126); ANION GAP 6 (5-19); ASPARTATE AMINO TRANSFERASE 29 U/L (14-36); B INFLUENZA AG NEGATIVE (NEGATIVE); BILIRUBIN,DIRECT 0.2 mg/dL (0.0-0.4); BILIRUBIN,TOTAL 0.6 mg/dL (0.2-1.3); CARBON DIOXIDE 32 mmol/L (22-30); CHLORIDE 100 mmol/L (98-107); POTASSIUM 3.9 mmol/L (3.6-5.0); TOTAL PROTEIN 5.9 g/dL (6.3-8.2)
[2018-03-03 00:42] LABS: TROPONIN I 0.026 ng/mL
--- NOTE | 2018-03-03 01:05 | ER Document Report ---
ED General - General Chief Complaint: Cough Stated Complaint: COUGH/FAST HEART RATE/DIFFICULTY BREATHING Time Seen by Provider: 03/02/18 20:23 Primary Care Provider: BRITTNEE GIBBS PA-C [Primary Care Provider] - Follow up as needed Notes: Patient is an 82-year-old female 82-year-old female with a past medical history of COPD, dementia, presents to the emergency department after being referred by primary care. Per family report the patient has been sick for almost 2 weeks now with cough, intermittent wheezing, weakness, decreased appetite, losing about 7 pounds. No fevers. At the time of my evaluation the patient denies any ongoing shortness of breath. Patient no longer smokes but does have an approxim ately 16-63-mkcb-year history. Daughter reports that the patient has been not eating, refusing her medications and discharged herself from home nursing care. Daughter is very concerned that the patient is not caring for herself and continues to want to live independently. She also notes that the patient has had progressive memory loss over the last several months. Patient has tried doxycycline and prednisone for her cough without any improvement. Nothing is been noted to worsen her symptoms. No known history of similar symptoms in the past. TRAVEL OUTSIDE OF THE [place] IN LAST 30 DAYS: No - Related Data Allergies/Adverse Reactions: gentamicin [Gentamicin] Allergy (Mild, Verified 03/02/18 17:33) UNK latex [Latex] Allergy (Mild, Verified 03/02/18 17:33) RASH metronidazole [From Flagyl] Allergy (Mild, Verified 03/02/18 17:33) Nausea Metronidazole HCl [From Flagyl] Allergy (Mild, Verified 03/02/18 17:33) Nausea Penicillins Allergy (Mild, Verified 03/02/18 17:33) THROAT SWELLS Past Medical History - General Information source: Patient, Relative - Social History Smoking Status: Former Smoker Chew tobacco use (# tins/day): No Frequency of alcohol use: None Drug Abuse: None Lives with: Alone Family History: Reviewed & Not Pertinent Patient has suicidal ideation: No Patient has homicidal ideation: No - Past Medical History Cardiac Medical History: Reports: Hx Coronary Artery Disease, Hx Hypertension - MEDICATED Denies: Hx Heart Attack Pulmonary Medical History: Reports: Hx Asthma - MEDICATED, Hx COPD - SPIRIVIA Denies: Hx Bronchitis, Hx Pneumonia Neurological Medical History: Denies: Hx Cerebrovascular Accident, Hx Seizures Renal/ Medical History: Denies: Hx Peritoneal Dialysis GI Medical History: Denies: Hx Hepatitis, Hx Hiatal Hernia, Hx Ulcer Musculoskeletal Medical History: Reports Hx Arthritis Infectious Medical History: Denies: Hx Hepatitis Past Surgical History: Reports: Hx Hysterectomy. Denies: Hx Mastectomy, Hx Open Heart Surgery, Hx Pacemaker - Immunizations Hx Diphtheria, Pertussis, Tetanus Vaccination: No - UNSURE Hx Pneumococcal Vaccination: 02/06/09 Review of Systems - Review of Systems Notes: Constitutional: Negative for fever. Positive for weight loss HENT: Negative for sore throat. Eyes: Negative for visual changes. Cardiovascular: Negative for chest pain. Respiratory: Positive for shortness of breath and cough Gastrointestinal: Negative for abdominal pain, vomiting or diarrhea. Genitourinary: Negative for dysuria. Musculoskeletal: Negative for back pain. Skin: Negative for rash. Neurological: Negative for headaches, weakness or numbness. 10 point ROS negative except as marked above and in HPI. Physical Exam - Vital signs Vitals: Temp Pulse Resp BP Pulse Ox 97.8 F 91 22 H 139/81 H 94 03/02/18 17:57 03/02/18 17:57 03/02/18 17:57 03/02/18 17:57 03/02/18 17:57 Interpretation: Normal Notes: PHYSICAL EXAMINATION: GENERAL: Frail, elderly female in no acute distress HEAD: Atraumatic, normocephalic. EYES: Pupils equal round and reactive to light, extraocular movements intact, sclera anicteric, conjunctiva are normal. ENT: nares patent, oropharynx clear without exudates. Moderately dry mucous membranes. NECK: Normal range of motion, supple without lymphadenopathy LUNGS: Breath sounds clear to auscultation bilaterally and equal. No wheezes rales or rhonchi. HEART: Regular rate and rhythm without murmurs ABDOMEN: Soft, nontender, normoactive bowel sounds. No guarding, no rebound. No masses appreciated. EXTREMITIES: Normal range of motion, no pitting or edema. No cyanosis. NEUROLOGICAL: Face symmetric. Tongue protrudes midline. Extraocular motions intact. Pupils are 2 mm and equally reactive. Normal speech, normal gait. 5 out of 5 strength in both the distal and proximal upper and lower extremities bilaterally. Sensation is grossly intact throughout. Finger to nose testing normal. Pronator drift normal. PSYCH: Alert, oriented to person, place but not month, year or current events SKIN: Warm, Dry, normal turgor, no rashes or lesions noted. Course - Re-evaluation Re-evalutation: 03/03/18 01:02 patient presents with familial and primary care concerns of 7 pounds of weight loss over the last 2 weeks, long-term cough for greater than 2 weeks despite treatment with doxycycline and prednisone. Family also reports that the patient has not been eating or drinking. On assessment the patient is frail, somewhat cachectic although in no acute distress. She is alert to person, place but not year, month or current events. Daughter states this is significant deterioration over the last 2 months. Her laboratory workup, chest x-ray, influenza testing is all unremarkable. She does not show any overt signs of dehydration on labs or clinical exam. The patient does admit that she is not eating much, states she does not get hungry anymore and often goes quite some time without having any meals. Daughter at the bedside also reports that the patient has for the most part discontinued her home medications. I suspect that the majority the patient's presentation is actually secondary to memory loss and failure to thrive as opposed to any acute process. I had a long conversation with the patient and her daughter about the need for in-home services and have emphasized the patient that if she wishes to remain independent as she currently does she will need to continue to eat, drink and take medications as prescribed. I do not believe that there is any acute process causing her weight loss at this point. At this time will discharge with return precautions and follow-up recommendations. Verbal discharge instructions given a the bedside and opportunity for questions given. Medication warnings reviewed. Patient is in agreement with this plan and has verbalized understanding of return precautions and the need for primary care follow-up in the next 24-72 hours. - Vital Signs Vital signs: Temp Pulse Resp BP Pulse Ox 97.8 F 91 20 150/66 H 95 03/02/18 17:57 03/02/18 17:57 03/03/18 01:01 03/03/18 01:01 03/03/18 01:01 - Laboratory Result Diagrams: 03/02/18 22:06 03/02/18 23:20 Laboratory results interpreted by me: 03/02/18 03/02/18 03/02/18 22:06 22:06 23:20 WBC 10.8 H RBC 5.36 H Hgb 16.3 H Hct 47.6 H Carbon Dioxide 32 H Glucose 118 H NT-Pro-B Natriuret Pep Total Protein 5.9 L Urine Protein 30 H Urine Ketones TRACE H Ur Leukocyte Esterase SMALL H Urine Ascorbic Acid 40 H 03/03/18 00:02 WBC RBC Hgb Hct Carbon Dioxide Glucose NT-Pro-B Natriuret Pep 518 H Total Protein Urine Protein Urine Ketones Ur Leukocyte Esterase Urine Ascorbic Acid - Diagnostic Test Radiology reviewed: Image reviewed, Reports reviewed Radiology results interpreted by me: 03/03/18 01:03 Chest x-ray: No acute infiltrate or pneumothorax - EKG Interpretation by Me Additional EKG results interpreted by me: 03/03/18 01:04 Sinus rhythm, rate 89. PVCs. No ST elevations or depressions. Unchanged from previous. QTC 439. Discharge - Discharge Clinical Impression: Persistent cough, Weight loss Failure to thrive Qualifiers: Failure to thrive age range: in adult Qualified Code(s): R62.7 - Adult failure to thrive Condition: Stable Disposition: HOME, SELF-CARE Additional Instructions: Please follow-up closely with your primary care physician regarding today's concerns. Your labs, chest x-ray and flu testing are all reassuring today. You need to continue to take your medications as prescribed by your primary doctor, and please be sure to take adequate fluid and food intake. Please return to the emergency room immediately if you experience any concerning symptoms including high fevers, severe headache, chest pain, difficulty breathing, abdominal pain, slurred speech, numbness or weakness in your arms or legs, or any other symptom that concerns you. Referrals: BRITTNEE GIBBS PA-C [Primary Care Provider] - Follow up as needed
[2018-03-03 01:31] VITALS: BP 150/66
== END 2018-03-03 01:30 | disposition home or self-care (01) ==
LOC: ER 17:30
DX: R63.4 Abnormal weight loss (principal); R05 Cough; R62.7 Adult failure to thrive; R06.00 Dyspnea, unspecified; R00.0 Tachycardia, unspecified; J44.9 Chronic obstructive pulmonary disease, unspecified; F03.90 Unspecified dementia, unspecified severity, without behavioral disturbance, psychotic disturbance, mood disturbance, and anxiety; I25.10 Atherosclerotic heart disease of native coronary artery without angina pectoris; I10 Essential (primary) hypertension; Z91.040 Latex allergy status; Z88.0 Allergy status to penicillin; Z90.710 Acquired absence of both cervix and uterus
CPT/HCPCS: 93005; 94640; 99284; 36415; 87040; 85025; 80053; 81001; 84484; 82803; 87804; 83880; 71045; 93010; A9270; J7620

== ENCOUNTER 2018-03-24 13:49 | Emergency (ER) | payer MEDICARE, OTHER ==
--- NOTE | 2018-03-24 14:52 | RADIOLOGY REPORT (SQ) ---
EXAM DESCRIPTION: CT HEAD WITHOUT COMPLETED DATE/TIME: 03/24/2018 2:30 pm REASON FOR STUDY: headache COMPARISON: CT brain 11/19/2017. TECHNIQUE: Axial images acquired through the brain without intravenous contrast. Images reviewed wi th bone, brain and subdural windows. Images stored on PACS. All CT scanners at this facility use dose modulation, iterative reconstruction, and/or weight based d osing when appropriate to reduce radiation dose to as low as reasonably achievable (ALARA). [facility]: Dose Right [facility]: CareDose [facility]: Dose Right [facility]: Teradose 4D [facility]: [employer] RADIATION DOSE: CT Rad equipment meets quality standard of care and radiation dose reduction techniq ues were employed. CTDIvol: 53.2 mGy. DLP: 1044 mGy-cm.mGy. LIMITATIONS: None. FINDINGS: VENTRICLES: Prominent. CEREBRUM: No mass effect. No hemorrhage. No midline shift. Areas of low density in the white matte r most likely due to chronic micro-vascular ischemic change. No evidence for acute territorial infar ction. CEREBELLUM: No hemorrhage. No alteration of density. No evidence for acute infarction. EXTRAAXIAL SPACES: Age-related involutional change. No fluid collections. ORBITS AND GLOBE: Symmetrical contour of the globes. CALVARIUM: No depressed fracture. PARANASAL SINUSES: No air-fluid level. SOFT TISSUES: No hematoma. IMPRESSION: CHRONIC CHANGES OF ATROPHY AND MICROVASCULAR ISCHEMIA. NO ACUTE PROCESS. EVIDENCE OF ACUTE STROKE: NO. TECHNICAL DOCUMENTATION: JOB ID: [id number] Quality ID # [id number]: Final reports with documentation of one or more dose reduction techniques (e.g., Au tomated exposure control, adjustment of the mA and/or kV according to patient size, use of iterative reconstruction technique) 2010 [employer]- All Rights Reserved Reading location - IP/workstation name: [email or web address] [email or web address]
[2018-03-24] MEDS ORDERED: ACETAMINOPHEN 325 MG TABLET PO ONE (15:05)
--- NOTE | 2018-03-24 15:08 | ER Document Report ---
ED General - General Chief Complaint: Headache Stated Complaint: HEADACHE Time Seen by Provider: 03/24/18 14:10 Primary Care Provider: BRITTNEE GIBBS PA-C [Primary Care Provider] - 03/26/18 TRAVEL OUTSIDE OF THE [place] IN LAST 30 DAYS: No - HPI Notes: Patient is a 82-year-old female that presents to the emergency department for chief complaint of headache. Patient reports frontal headache bilaterally for the last 2 days. She states it is mild and throbbing in nature. The headache has been intermittent. It does go away after taking Aleve. Patient has a home health aide that checked her blood pressure and reported it was 220/104. Patient's daughter called her primary care physician who encouraged her to come to the emergency room for evaluation. Currently patient states her headache is mild. She denies any associated vision changes, nausea, vomiting, chest pain, shortness of breath, abdominal pain, urinary frequency or difficulty urinating. Patient states she used to be on blood pressure medications and metformin but after significant dietary changes she was taken off those medications. She has not had blood pressure issues in the last few years. She did recently eat a bag of chips that had 800 mg of sodium in it per her daughter. Past Medical History: Hypertension, diabetes Past Surgical History: Partial colon resection, lumpectomy Social History: Denies current tobacco use Family History: Reviewed and noncontributory for presenting illness Allergies: Reviewed, see documented allergy list. REVIEW OF SYSTEMS: CONSTITUTIONAL : No fever No chills No diaphoresis No recent illness EENT: No vision changes No congestion No sore throat CARDIOVASCULAR: No chest pain No palpitations RESPIRATORY: No shortness of breath No cough No difficulty breathing GASTROINTESTINAL: No abdominal pain No nausea No vomiting No diarrhea GENITOURINARY: No dysuria No hematuria No difficulty urinating MUSCULOSKELETAL: No back pain No leg pain No arm pain SKIN: No rashes No lesions LYMPHATIC: No swollen, enlarged glands. NEUROLOGICAL: No lightheadedness headache No weakness No paresthesias PSYCHIATRIC: No anxiety No depression PHYSICAL EXAMINATION: Vital signs reviewed, nursing noted reviewed. GENERAL: Well-appearing, well-nourished and in no acute distress. HEAD: Atraumatic, normocephalic. EYES: Eyes appear normal, extraocular movements intact, sclera anicteric, conjunctiva are normal. ENT: nares patent, oropharynx clear without exudates. Moist mucous membranes. NECK: Normal range of motion, supple without lymphadenopathy LUNGS: Breath sounds clear to auscultation bilaterally and equal. No wheezes rales or rhonchi. HEART: Regular rate and rhythm without murmurs ABDOMEN: Soft, nontender, normoactive bowel sounds. No rebound, guarding, or rigidity. No masses appreciated. EXTREMITIES: Nontender, good range of motion, no pitting or edema. NEUROLOGICAL: No focal neurological deficits. Moves all extremities spontaneously Motor and sensory grossly intact on exam. PSYCH: Normal mood, normal affect. SKIN: Warm, Dry, normal turgor, no rashes or lesions noted on exposed skin - Related Data Allergies/Adverse Reactions: gentamicin [Gentamicin] Allergy (Mild, Verified 03/02/18 17:33) UNK latex [Latex] Allergy (Mild, Verified 03/02/18 17:33) RASH metronidazole [From Flagyl] Allergy (Mild, Verified 03/02/18 17:33) Nausea Metronidazole HCl [From Flagyl] Allergy (Mild, Verified 03/02/18 17:33) Nausea Penicillins Allergy (Mild, Verified 03/02/18 17:33) THROAT SWELLS Past Medical History - Social History Smoking Status: Former Smoker Frequency of alcohol use: None Drug Abuse: None Family History: Reviewed & Not Pertinent Patient has suicidal ideation: No Patient has homicidal ideation: No - Past Medical History Cardiac Medical History: Reports: Hx Coronary Artery Disease, Hx Hypertension Denies: Hx Heart Attack Pulmonary Medical History: Reports: Hx Asthma, Hx COPD Denies: Hx Bronchitis, Hx Pneumonia Neurological Medical History: Denies: Hx Cerebrovascular Accident, Hx Seizures Renal/ Medical History: Denies: Hx Peritoneal Dialysis GI Medical History: Denies: Hx Hepatitis, Hx Hiatal Hernia, Hx Ulcer Musculoskeletal Medical History: Reports Hx Arthritis Infectious Medical History: Denies: Hx Hepatitis Past Surgical History: Reports: Hx Abdominal Surgery - colon resection, Hx Appendectomy, Hx Hysterectomy. Denies: Hx Mastectomy, Hx Open Heart Surgery, Hx Pacemaker - Immunizations Hx Diphtheria, Pertussis, Tetanus Vaccination: No - UNSURE Hx Pneumococcal Vaccination: 02/06/09 Physical Exam - Vital signs Vitals: Temp Pulse Resp BP Pulse Ox 97.5 F 68 18 166/67 H 96 03/24/18 13:50 03/24/18 13:50 03/24/18 13:50 03/24/18 13:50 03/24/18 13:50 Course - Re-evaluation Re-evalutation: 03/24/18 15:07 Vitals reviewed. Nursing notes reviewed. Patient is well-appearing with no f ocal neurologic deficits. CT brain shows no intracranial hemorrhage or other acute process. 03/24/18 17:07 Patient's lab work is unremarkable. Her blood pressure is now 179/68. She will see her primary care doctor on Monday for close reevaluation of her blood pressure. Her headache has improved on reevaluation. Laboratory 03/24/18 03/24/18 03/24/18 14:00 14:00 14:00 WBC 4.5 RBC 4.79 Hgb 14.6 Hct 42.7 MCV 89 MCH 30.5 MCHC 34.2 RDW 15.1 H Plt Count 255 Seg Neutrophils % 57.6 Lymphocytes % 28.9 Monocytes % 6.8 Eosinophils % 6.0 Basophils % 0.7 Absolute Neutrophils 2.6 Absolute Lymphocytes 1.3 Absolute Monocytes 0.3 Absolute Eosinophils 0.3 Absolute Basophils 0.0 Sodium 143.7 Potassium 3.4 L Chloride 101 Carbon Dioxide 37 H Anion Gap 6 BUN 12 Creatinine 0.76 Est GFR ( Amer) > 60 Est GFR (Non-Af Amer) > 60 Glucose 121 H Calcium 9.6 Troponin I < 0.[address] 03/24/18 14:11 IMPRESSION: CHRONIC CHANGES OF ATROPHY AND MICROVASCULAR ISCHEMIA. NO ACUTE PROCESS. EVIDENCE OF ACUTE STROKE: NO. - Vital Signs Vital signs: Temp Pulse Resp BP Pulse Ox 97.5 F 68 20 141/64 H 96 03/24/18 13:50 03/24/18 13:50 03/24/18 16:02 03/24/18 16:02 03/24/18 16:02 - Laboratory Result Diagrams: 03/24/18 14:00 03/24/18 14:00 Laboratory results interpreted by me: 03/24/18 03/24/18 14:00 14:00 RDW 15.1 H Potassium 3.4 L Carbon Dioxide 37 H Glucose 121 H Discharge - Discharge Clinical Impression: Headache Qualifiers: Headache type: unspecified Headache chronicity pattern: acute headache Intractability: not intractable Qualified Code(s): R51 - Headache Hypertension Qualifiers: Hypertension type: unspecified Qualified Code(s): I10 - Essential (primary) hypertension Condition: Stable Disposition: HOME, SELF-CARE Instructions: Headache ([facility]) Additional Instructions: Please return to the emergency department if you have any worsening, or concern of your symptoms. Please return to the emergency department if you develop chest pain, difficulty breathing, severe abdominal pain, or ongoing vomiting. Please follow-up with your primary care physician in 2-3 days and any other recommended physicians. If prescribed, take all medications as directed. If you have any questions or concerns do not hesitate to return the emergency department for evaluation. Forms: Elevated Blood Pressure Referrals: BRITTNEE GIBBS PA-C [Primary Care Provider] - 03/26/18
[2018-03-24 15:42] LABS: ABSOLUTE EOSINOPHILS # (AUTO) 0.3 10^3/uL (0.0-0.6); ABSOLUTE LYMPHOCYTES (AUTO) 1.3 10^3/uL (0.5-4.7); ABSOLUTE MONOCYTES (AUTO) 0.3 10^3/uL (0.1-1.4); ABSOLUTE NEUT (AUTO) 2.6 10^3/uL (1.7-8.2); BASOPHILS % (AUTO) 0.7 % (0-2); HEMATOCRIT 42.7 % (36.0-47.0); HEMOGLOBIN 14.6 g/dL (12.0-15.5); LYMPHOCYTES % (AUTO) 28.9 % (13-45); MEAN CORPUSCULAR HEMOGLOBIN 30.5 pg (27.0-33.4); MEAN CORPUSCULAR HGB CONC 34.2 g/dL (32.0-36.0); MEAN CORPUSCULAR VOLUME 89 fl (80-97); MONOCYTES % (AUTO) 6.8 % (3-13); PLATELET COUNT 255 10^3/uL (150-450); RED BLOOD COUNT 4.79 10^6/uL (3.72-5.28); RED CELL DISTRIBUTION WIDTH 15.1 % (11.5-14.0); SEGMENTED NEUTROPHILS % (AUTO) 57.6 % (42-78); TOTAL CELLS COUNTED % (AUTO) 100 %; WHITE BLOOD COUNT 4.5 10^3/uL (4.0-10.5)
[2018-03-24 15:57] LABS: ANION GAP 6 (5-19); BLOOD UREA NITROGEN 12 mg/dL (7-20); CALCIUM 9.6 mg/dL (8.4-10.2); CARBON DIOXIDE 37 mmol/L (22-30); CHLORIDE 101 mmol/L (98-107); GLUCOSE 121 mg/dL (75-110); POTASSIUM 3.4 mmol/L (3.6-5.0); SODIUM 143.7 mmol/L (137-145)
[2018-03-24 17:35] VITALS: BP 179/68
--- NOTE | 2018-03-24 19:41 | EKG REPORT ---
SEVERITY:- ABNORMAL ECG - SINUS RHYTHM MULTIPLE ATRIAL PREMATURE COMPLEXES PROBABLE LEFT ATRIAL ABNORMALITY LEFT BUNDLE BRANCH BLOCK : Confirmed by: Lalita Hair MD 24-Mar-2018 19:40:41
== END 2018-03-24 17:35 | disposition home or self-care (01) ==
LOC: ER 13:49
DX: R51 Headache (principal); I10 Essential (primary) hypertension; E11.9 Type 2 diabetes mellitus without complications; Z79.899 Other long term (current) drug therapy; Z79.84 Long term (current) use of oral hypoglycemic drugs; Z87.891 Personal history of nicotine dependence; I25.10 Atherosclerotic heart disease of native coronary artery without angina pectoris; J44.9 Chronic obstructive pulmonary disease, unspecified
CPT/HCPCS: 93005; 99284; 36415; 85025; 80048; 84484; 70450; 93010; A9270

== ENCOUNTER → 2018-05-25 | Outpatient (CLI) | payer OTHER, MEDICARE | LOC: OD 12:16 | PROVIDERS: ATTEND Nurse Practitioner Acute Care | DX: R30.0 Dysuria (principal) | CPT/HCPCS: 87086 ==

== ENCOUNTER 2018-06-10 10:52 | Emergency (ER) | payer MEDICARE, OTHER ==
--- NOTE | 2018-06-10 11:45 | ER Document Report ---
ED Medical Screen (RME) - General Chief Complaint: Shoulder Injury Stated Complaint: BACK AND SHOULDER PAIN Time Seen by Provider: 06/10/18 11:36 Primary Care Provider: SHWETHA CHAWLA NP [Primary Care Provider] - Follow up as needed Notes: Patient is an 83-year-old female who presents the emergency department with a chief complaint of left shoulder pain. Her shoulder pain started about 3 days ago, but she ended up having excruciating pain around 230 this morning. She attempted to take half a Percocet at that time, but has had little relief. Denies any injury. She does have a past medical history of osteoporosis, hyperlipidemia, and hypertension. She is currently taking hydrochlorothiazide. Exam: Facial grimacing, tenderness upon palpation of left shoulder I have greeted and performed a rapid initial assessment of this patient. A comprehensive ED assessment and evaluation of the patient, analysis of test results and completion of medical decision making process will be conducted by an additional ED providers. TRAVEL OUTSIDE OF THE [place] IN LAST 30 DAYS: No - Related Data Allergies/Adverse Reactions: gentamicin [Gentamicin] Allergy (Mild, Verified 03/02/18 17:33) UNK latex [Latex] Allergy (Mild, Verified 03/02/18 17:33) RASH metronidazole [From Flagyl] Allergy (Mild, Verified 03/02/18 17:33) Nausea Metronidazole HCl [From Flagyl] Allergy (Mild, Verified 03/02/18 17:33) Nausea Penicillins Allergy (Mild, Verified 03/02/18 17:33) THROAT SWELLS Past Medical History - Past Medical History Cardiac Medical History: Reports: Hx Coronary Artery Disease, Hx Hypertension Denies: Hx Heart Attack Pulmonary Medical History: Reports: Hx Asthma, Hx COPD Denies: Hx Bronchitis, Hx Pneumonia Neurological Medical History: Denies: Hx Cerebrovascular Accident, Hx Seizures Renal/ Medical History: Denies: Hx Peritoneal Dialysis GI Medical History: Denies: Hx Hepatitis, Hx Hiatal Hernia, Hx Ulcer Musculoskeltal Medical History: Reports Hx Arthritis Infectious Medical History: Denies: Hx Hepatitis Past Surgical History: Reports: Hx Abdominal Surgery - colon resection, Hx Appendectomy, Hx Hysterectomy. Denies: Hx Mastectomy, Hx Open Heart Surgery, Hx Pacemaker - Immunizations Hx Diphtheria, Pertussis, Tetanus Vaccination: No - UNSURE Physical Exam - Vital signs Vitals: Temp Pulse Resp BP Pulse Ox 97.3 F 80 20 148/70 H 93 06/10/18 11:16 06/10/18 11:16 06/10/18 11:16 06/10/18 11:16 06/10/18 11:16 Course - Vital Signs Vital signs: Temp Pulse Resp BP Pulse Ox 97.3 F 80 20 148/70 H 93 06/10/18 11:16 06/10/18 11:16 06/10/18 11:16 06/10/18 11:16 06/10/18 11:16 Doctor's Discharge - Discharge Referrals: SHWETHA CHAWLA, [facility] [Primary Care Provider] - Follow up as needed
[2018-06-10 13:45] LABS: ABSOLUTE BASOPHILS # (AUTO) 0.1 10^3/uL (0.0-0.2); ABSOLUTE EOSINOPHILS # (AUTO) 0.5 10^3/uL (0.0-0.6); ABSOLUTE LYMPHOCYTES (AUTO) 1.3 10^3/uL (0.5-4.7); ABSOLUTE MONOCYTES (AUTO) 0.5 10^3/uL (0.1-1.4); ABSOLUTE NEUT (AUTO) 2.6 10^3/uL (1.7-8.2); EOSINOPHILS % (AUTO) 10.9 % (0-6); HEMATOCRIT 40.3 % (36.0-47.0); HEMOGLOBIN 13.4 g/dL (12.0-15.5); LYMPHOCYTES % (AUTO) 26.6 % (13-45); MEAN CORPUSCULAR HEMOGLOBIN 29.4 pg (27.0-33.4); MEAN CORPUSCULAR HGB CONC 33.4 g/dL (32.0-36.0); MEAN CORPUSCULAR VOLUME 88 fl (80-97); MONOCYTES % (AUTO) 9.5 % (3-13); PLATELET COUNT 209 10^3/uL (150-450); RED BLOOD COUNT 4.57 10^6/uL (3.72-5.28); RED CELL DISTRIBUTION WIDTH 13.7 % (11.5-14.0); TOTAL CELLS COUNTED % (AUTO) 100 %; WHITE BLOOD COUNT 4.9 10^3/uL (4.0-10.5)
[2018-06-10 13:53] LABS: ALANINE AMINOTRANSFERASE 36 U/L (9-52); ALBUMIN 3.5 g/dL (3.5-5.0); ALKALINE PHOSPHATASE 59 U/L (38-126); ANION GAP 8 (5-19); ASPARTATE AMINO TRANSFERASE 25 U/L (14-36); BILIRUBIN,DIRECT 0.3 mg/dL (0.0-0.4); BILIRUBIN,TOTAL 0.5 mg/dL (0.2-1.3); BLOOD UREA NITROGEN 22 mg/dL (7-20); CALCIUM 9.3 mg/dL (8.4-10.2); CARBON DIOXIDE 32 mmol/L (22-30); CHLORIDE 97 mmol/L (98-107); CREATINE KINASE 27 U/L (30-135); GLUCOSE 97 mg/dL (75-110); POTASSIUM 3.7 mmol/L (3.6-5.0); SODIUM 137.1 mmol/L (137-145); TOTAL PROTEIN 5.5 g/dL (6.3-8.2)
[2018-06-10 14:04] LABS: CREATINE KINASE MB 1.18 ng/mL (<4.55)
[2018-06-10 14:11] LABS: TROPONIN I < 0.012 ng/mL
--- NOTE | 2018-06-10 14:18 | ER Document Report ---
ED General - General Chief Complaint: Shoulder Injury Stated Complaint: BACK AND SHOULDER PAIN Time Seen by Provider: 06/10/18 11:36 Primary Care Provider: SHWETHA CHAWLA, VANCE [NURSE PRACTITIONER] - Follow up in 3-5 days Notes: Patient is a 83-year-old female that presents to the emergency department for chief complaint of left shoulder blade pain. Patient states she is been having pain in her left shoulder, this started as an itching sensation that turned into more of a electric type pain that started last night, tried a heating pad and Percocet without much relief of her pain, they went to urgent care today and they are worried about a possible compression fractures of the advised to come to the emergency department. She denies having any fevers, chills, night sweats, anterior chest pain, shortness of breath, difficulty breathing, nausea or vomiting. She does have history of shingles in the past on that side, she is had 2 episodes in the past. She denies noting any rash associated with this, however they state previously she did not have a rash. Currently rates her pain as a 7 out of 10 describes as a electric type pain in her left shoulder blade. Past Medical History: Osteoporosis, hypertension, hyperlipidemia, history of single shingles Past Surgical History: Reviewed and not pertinent to presentation Social History: Former smoker, no alcohol or drug use. Family History: Reviewed and noncontributory for presenting illness Allergies: Reviewed, see documented allergy list. REVIEW OF SYSTEMS: Other than noted above, the 12 point review of systems was reviewed with the patient and were negative, all pertinent findings are included in the HPI. PHYSICAL EXAMINATION: Vital signs reviewed, nursing noted reviewed. GENERAL: Elderly female, appears uncomfortable on exam. HEAD: Atraumatic, normocephalic. EYES: Eyes appear normal, extraocular movements intact, sclera anicteric, conjun ctiva are normal. ENT: nares patent, oropharynx clear without exudates. Moist mucous membranes. NECK: Normal range of motion, supple without lymphadenopathy LUNGS: Breath sounds clear to auscultation bilaterally and equal. No wheezes rales or rhonchi. HEART: Regular rate and rhythm without murmurs ABDOMEN: Soft, nontender, normoactive bowel sounds. No rebound, guarding, or rigidity. No masses appreciated. Back: No midline tenderness to the thoracic or lumbar spine, no paraspinal tenderness, good range of motion, noted to have kyphosis of the thoracic spine. EXTREMITIES: Tenderness to palpation, over the left shoulder blade, patient is exquisitely tender over this area, but no pain with range of motion of the left shoulder, no chest wall tenderness, the rest the patient's extremity exam is grossly unremarkable, good range of motion, no pitting or edema. NEUROLOGICAL: No focal neurological deficits. Moves all extremities spontaneously Motor and sensory grossly intact on exam. PSYCH: Normal mood, normal affect. SKIN: Warm, Dry, normal turgor, no rashes or lesions noted on exposed skin TRAVEL OUTSIDE OF THE [place] IN LAST 30 DAYS: No - Related Data Allergies/Adverse Reactions: gentamicin [Gentamicin] Allergy (Mild, Verified 03/02/18 17:33) UNK latex [Latex] Allergy (Mild, Verified 03/02/18 17:33) RASH metronidazole [From Flagyl] Allergy (Mild, Verified 03/02/18 17:33) Nausea Metronidazole HCl [From Flagyl] Allergy (Mild, Verified 03/02/18 17:33) Nausea Penicillins Allergy (Mild, Verified 03/02/18 17:33) THROAT SWELLS Past Medical History - Social History Smoking Status: Former Smoker Chew tobacco use (# tins/day): No Frequency of alcohol use: None Drug Abuse: None Family History: Reviewed & Not Pertinent Patient has suicidal ideation: No Patient has homicidal ideation: No - Past Medical History Cardiac Medical History: Reports: Hx Coronary Artery Disease, Hx Hypertension Denies: Hx Heart Attack Pulmonary Medical History: Reports: Hx Asthma, Hx COPD Denies: Hx Bronchitis, Hx Pneumonia Neurological Medical History: Denies: Hx Cerebrovascular Accident, Hx Seizures Renal/ Medical History: Denies: Hx Peritoneal Dialysis GI Medical History: Denies: Hx Hepatitis, Hx Hiatal Hernia, Hx Ulcer Musculoskeletal Medical History: Reports Hx Arthritis Infectious Medical History: Denies: Hx Hepatitis Past Surgical History: Reports: Hx Abdominal Surgery - colon resection, Hx Appendectomy, Hx Hysterectomy. Denies: Hx Mastectomy, Hx Open Heart Surgery, Hx Pacemaker - Immunizations Hx Diphtheria, Pertussis, Tetanus Vaccination: No - UNSURE Hx Pneumococcal Vaccination: 02/06/09 Physical Exam - Vital signs Vitals: Temp Pulse Resp BP Pulse Ox 97.3 F 80 20 148/70 H 93 06/10/18 11:16 06/10/18 11:16 06/10/18 11:16 06/10/18 11:16 06/10/18 11:16 Course - Re-evaluation Re-evalutation: Patient seen and examined vital signs reviewed. Laboratory data and/or imaging were ordered as appropriate for the patient's presenting symptoms and complaint, with consideration of any critical or life threatening conditions that may be associated with their obtained history and exam as noted above. Patient was treated with oxycodone 5 milligrams p.o., and acetaminophen 650 mg p.o. Results were reviewed when available and demonstrated negative imaging of the chest, and thoracic spine, blood work was unremarkable as well that was ordered including negative troponin The patient was re-evaluated and was improved and much more comfortable Evaluation was most consistent with likely postherpetic neuralgia, patient is rather tender over the area where she previously had shingles, is possible she could have an early outbreak of shingles as well prior to rash presentation, therefore we will treat her with Valtrex, 1000 mg 3 times daily, and with Neurontin and have her follow-up with her primary care, patient family agreeable with this plan of care. Results were discussed with the patient at this point, after careful consideration I feel that that patient can be discharged from the emergency department, the patient was educated treatments and reasons to return to the emergency department based on their presumed diagnosis as noted above, they were advised to followup with a primary care physician in 2-3 days. Patient was agreeable to plan of care. *Note is created using voice recognition software and may contain spelling, synt ax or grammatical errors. Laboratory 06/10/18 06/10/18 06/10/18 13:15 13:15 13:15 WBC 4.9 RBC 4.57 Hgb 13.4 Hct 40.3 MCV 88 MCH 29.4 MCHC 33.4 RDW 13.7 Plt Count 209 Seg Neutrophils % 52.0 Lymphocytes % 26.6 Monocytes % 9.5 Eosinophils % 10.9 H Basophils % 1.0 Absolute Neutrophils 2.6 Absolute Lymphocytes 1.3 Absolute Monocytes 0.5 Absolute Eosinophils 0.5 Absolute Basophils 0.1 Sodium 137.1 Potassium 3.7 Chloride 97 L Carbon Dioxide 32 H Anion Gap 8 BUN 22 H Creatinine 0.69 Est GFR ( Amer) > 60 Est GFR (Non-Af Amer) > 60 Glucose 97 Calcium 9.3 Total Bilirubin 0.5 Direct Bilirubin 0.3 Neonat Total Bilirubin Not Reportable Neonat Direct Bilirubin Not Reportable Neonat Indirect Bili Not Reportable AST 25 ALT 36 Alkaline Phosphatase 59 Creatine Kinase 27 L CK-MB (CK-2) 1.18 Troponin I < 0.012 Total Protein 5.5 L Albumin 3.5 Chest X-Ray 06/10/18 14:40 IMPRESSION: NO ACUTE RADIOGRAPHIC FINDING IN THE CHEST. Thoracic Spine X-Ray 06/10/18 14:40 IMPRESSION: No compression fracture. - Vital Signs Vital signs: Temp Pulse Resp BP Pulse Ox 97.3 F 61 12 134/47 H 92 06/10/18 16:15 06/10/18 16:15 06/10/18 16:15 06/10/18 16:15 06/10/18 16:15 - Laboratory Result Diagrams: 06/10/18 13:15 06/10/18 13:15 Laboratory results interpreted by me: 06/10/18 06/10/18 13:15 13:15 Eosinophils % 10.9 H Chloride 97 L Carbon Dioxide 32 H BUN 22 H Creatine Kinase 27 L Total Protein 5.5 L Discharge - Discharge Clinical Impression: Shingles Qualifiers: Herpes zoster complications: without complications Qualified Code(s): B02.9 - Zoster without complications Back pain Qualifiers: Back pain location: thoracic back pain Chronicity: unspecified Back pain laterality: left Qualified Code(s): M54.6 - Pain in thoracic spine Condition: Stable Disposition: HOME, SELF-CARE Instructions: Shingles ([facility]) Prescriptions: Gabapentin [Neurontin 100 mg Capsule] 100 mg PO TID 7 Days #21 capsule Valacyclovir HCl [Valtrex] 1,000 mg PO Q8H 7 Days #21 tablet Referrals: SHWETHA CHAWLA, VETERINARY TECHNICIAN [NURSE PRACTITIONER] - Follow up in 3-5 days
[2018-06-10] MEDS ORDERED: OXYCODONE HCL IR 5 MG TABLET PO ONE (14:41)
[2018-06-10] MEDS ORDERED: ACETAMINOPHEN 325 MG TABLET PO ONE (14:41)
--- NOTE | 2018-06-10 15:35 | RADIOLOGY REPORT (SQ) ---
EXAM DESCRIPTION: CHEST SINGLE VIEW COMPLETED DATE/TIME: 06/10/2018 3:26 pm REASON FOR STUDY: left shoulder pain COMPARISON: 03/02/2018 EXAM PARAMETERS: NUMBER OF VIEWS: One view. TECHNIQUE: Single frontal radiographic view of the chest acquired. RADIATION DOSE: NA LIMITATIONS: None. FINDINGS: LUNGS AND PLEURA: No opacities, masses or pneumothorax. No pleural effusion. MEDIASTINUM AND HILAR STRUCTURES: No masses. Contour normal. HEART AND VASCULAR STRUCTURES: Heart normal in size. Normal vasculature. BONES: No acute findings. HARDWARE: None in the chest. OTHER: No other significant finding. IMPRESSION: NO ACUTE RADIOGRAPHIC FINDING IN THE CHEST. TECHNICAL DOCUMENTATION: JOB ID: [id number] [employer]- All Rights Reserved Reading location - IP/workstation name: [email or web address]
--- NOTE | 2018-06-10 15:37 | RADIOLOGY REPORT (SQ) ---
EXAM DESCRIPTION: T SPINE AP/LAT COMPLETED DATE/TIME: 06/10/2018 3:26 pm REASON FOR STUDY: back pain COMPARISON: None. NUMBER OF VIEWS: Two views. TECHNIQUE: AP and lateral radiographic images acquired of the thoracic spine. LIMITATIONS: None. FINDINGS: MINERALIZATION: Osteopenia. ALIGNMENT: Normal. No scoliosis. VERTEBRAE: No fracture or bone lesion. Maintained height, normal segmentation. DISCS: Multilevel osteophytes. HARDWARE: None in the spine. MEDIASTINUM AND SOFT TISSUES: Normal heart size and aortic contour. No soft tissue abnormality. VISUALIZED LUNG SINGH: Clear. OTHER: No other significant finding. IMPRESSION: No compression fracture. TECHNICAL DOCUMENTATION: JOB ID: [id number] [employer]- All Rights Reserved Reading location - IP/workstation name: [email or web address]
[2018-06-10 16:14] VITALS: BP 134/47
--- NOTE | 2018-06-10 22:36 | EKG REPORT ---
SEVERITY:- ABNORMAL ECG - SINUS RHYTHM SUPRAVENTRICULAR BIGEMINY LEFT BUNDLE BRANCH BLOCK INFERIOR Q WAVES, POSSIBLY DUE TO LBBB : Confirmed by: Nabil Beatty 10-Jun-2018 22:36:10
== END 2018-06-10 16:24 | disposition home or self-care (01) ==
LOC: ER 10:52
DX: B02.9 Zoster without complications (principal); M54.6 Pain in thoracic spine; M25.512 Pain in left shoulder; M54.9 Dorsalgia, unspecified; Z79.899 Other long term (current) drug therapy; I10 Essential (primary) hypertension; Z87.891 Personal history of nicotine dependence; I25.10 Atherosclerotic heart disease of native coronary artery without angina pectoris; J44.9 Chronic obstructive pulmonary disease, unspecified
CPT/HCPCS: 93005; 99284; 36415; 82553; 82550; 85025; 80053; 84484; 71045; 72070; 93010; A9270 ×2

== ENCOUNTER 2018-06-22 14:47 | Emergency (ER) | payer MEDICARE, OTHER ==
--- NOTE | 2018-06-22 15:05 | ER Document Report ---
ED Medical Screen (RME) - General Chief Complaint: Abdominal Pain Stated Complaint: STOMACH PAIN Time Seen by Provider: 06/22/18 15:02 Mode of Arrival: Wheelchair Information source: Relative, Outside Facility Records Notes: 83-year-old female presented to ED for complaint of abdominal pain. Iris Caldera from [facility] in [place] called to give report on this lady. She had abdominal pain since June 01. She was diagnosed with acute and chronic diverticulitis. She was started on antibiotics and was better on June 11 when she was followed up. Today she return to the office because she is worse. States she has had worse pain for the last 2 days. According to the provider she has been tachypneic high blood pressure to tachycardic and has lost 6 pounds in the last 11 days. According to her daughter she has no appetite and does not want to eat. I have greeted and performed a rapid initial assessment of this patient. A comprehensive ED assessment and evaluation of the patient, analysis of test results and completion of medical decision making process will be conducted by an additional ED providers. Dictation of this chart was performed using voice recognition software; therefore, there may be some unintended grammatical errors. TRAVEL OUTSIDE OF THE [place] IN LAST 30 DAYS: No - Related Data Allergies/Adverse Reactions: gentamicin [Gentamicin] Allergy (Mild, Verified 06/22/18 14:49) UNK latex [Latex] Allergy (Mild, Verified 06/22/18 14:49) RASH metronidazole [From Flagyl] Allergy (Mild, Verified 06/22/18 14:49) Nausea Metronidazole HCl [From Flagyl] Allergy (Mild, Verified 06/22/18 14:49) Nausea Penicillins Allergy (Mild, Verified 06/22/18 14:49) THROAT SWELLS Past Medical History - Past Medical History Cardiac Medical History: Reports: Hx Coronary Artery Disease, Hx Hypertension Denies: Hx Heart Attack Pulmonary Medical History: Reports: Hx Asthma, Hx COPD Denies: Hx Bronchitis, Hx Pneumonia Neurological Medical History: Denies: Hx Cerebrovascular Accident, Hx Seizures Renal/ Medical History: Denies: Hx Peritoneal Dialysis GI Medical History: Denies: Hx Hepatitis, Hx Hiatal Hernia, Hx Ulcer Musculoskeltal Medical History: Reports Hx Arthritis Infectious Medical History: Denies: Hx Hepatitis Past Surgical History: Reports: Hx Abdominal Surgery - colon resection, Hx Appendectomy, Hx Hysterectomy. Denies: Hx Mastectomy, Hx Open Heart Surgery, Hx Pacemaker - Immunizations Hx Diphtheria, Pertussis, Tetanus Vaccination: No - UNSURE Physical Exam - Vital signs Vitals: Temp Pulse Resp BP Pulse Ox 97.6 F 88 13 158/82 H 92 06/22/18 14:52 06/22/18 14:52 06/22/18 14:52 06/22/18 14:52 06/22/18 14:52 Course - Vital Signs Vital signs: Temp Pulse Resp BP Pulse Ox 97.6 F 88 13 158/82 H 92 06/22/18 14:52 06/22/18 14:52 06/22/18 14:52 06/22/18 14:52 06/22/18 14:52
[2018-06-22] MEDS ORDERED: NORMAL SALINE 1000 ML 1,000 ML IV ONE (15:08)
[2018-06-22 15:33] LABS: ABSOLUTE BASOPHILS # (AUTO) 0.1 10^3/uL (0.0-0.2); ABSOLUTE EOSINOPHILS # (AUTO) 0.2 10^3/uL (0.0-0.6); ABSOLUTE LYMPHOCYTES (AUTO) 1.8 10^3/uL (0.5-4.7); ABSOLUTE MONOCYTES (AUTO) 0.6 10^3/uL (0.1-1.4); ABSOLUTE NEUT (AUTO) 3.6 10^3/uL (1.7-8.2); BASOPHILS % (AUTO) 0.9 % (0-2); HEMATOCRIT 47.5 % (36.0-47.0); HEMOGLOBIN 16.1 g/dL (12.0-15.5); LYMPHOCYTES % (AUTO) 29.1 % (13-45); MEAN CORPUSCULAR HGB CONC 33.8 g/dL (32.0-36.0); MEAN CORPUSCULAR VOLUME 89 fl (80-97); MONOCYTES % (AUTO) 10.1 % (3-13); PLATELET COUNT 311 10^3/uL (150-450); RED BLOOD COUNT 5.35 10^6/uL (3.72-5.28); RED CELL DISTRIBUTION WIDTH 14.2 % (11.5-14.0); SEGMENTED NEUTROPHILS % (AUTO) 56.9 % (42-78); TOTAL CELLS COUNTED % (AUTO) 100 %; WHITE BLOOD COUNT 6.3 10^3/uL (4.0-10.5)
[2018-06-22 15:48] LABS: ALANINE AMINOTRANSFERASE 31 U/L (9-52); ALBUMIN 4.6 g/dL (3.5-5.0); ALKALINE PHOSPHATASE 66 U/L (38-126); ANION GAP 12 (5-19); ASPARTATE AMINO TRANSFERASE 40 U/L (14-36); BILIRUBIN,DIRECT 0.3 mg/dL (0.0-0.4); BILIRUBIN,TOTAL 0.8 mg/dL (0.2-1.3); BLOOD UREA NITROGEN 41 mg/dL (7-20); CALCIUM 11.4 mg/dL (8.4-10.2); CARBON DIOXIDE 35 mmol/L (22-30); CHLORIDE 93 mmol/L (98-107); GLUCOSE 114 mg/dL (75-110); LIPASE 140.7 U/L (23-300); POTASSIUM 3.6 mmol/L (3.6-5.0); SODIUM 139.8 mmol/L (137-145); TOTAL PROTEIN 7.7 g/dL (6.3-8.2)
[2018-06-22 16:13] LABS: APPEARANCE,URINE SLIGHTLY-CLOUDY; BILIRUBIN,URINE NEGATIVE (NEGATIVE); COLOR,URINE YELLOW; GLUCOSE, URINE NEGATIVE (NEGATIVE); KETONES,URINE TRACE mg/dL (NEGATIVE); LEUKOCYTE ESTERASE,URINE TRACE (NEGATIVE); NITRITE,URINE NEGATIVE (NEGATIVE); PROTEIN,URINE 30 mg/dL (NEGATIVE); URINE SPECIFIC GRAVITY 1.019; UROBILINOGEN,URINE NEGATIVE mg/dL (<2.0)
[2018-06-22] MEDS ORDERED: FENTANYL CITRATE INJ/PF 100 MCG/2 ML AMPUL IV ONE (16:54)
--- NOTE | 2018-06-22 17:21 | ER Document Report ---
ED GI/ - General Chief Complaint: Abdominal Pain Stated Complaint: STOMACH PAIN Time Seen by Provider: 06/22/18 15:02 Primary Care Provider: HAROLDO SOSA MD [Primary Care Provider] - Follow up as needed Mode of Arrival: Wheelchair Information source: Patient, Relative - Daughter Notes: Patient is an 83-year-old female with past medical history of diverticulitis, hernia repair with large mesh placement, cholecystectomy, appendectomy and bowel resection. She states that she had a bout of acute diverticulitis several weeks ago, was given moxifloxacin and all of her symptoms had resolved. Patient reports over the last 2 to 3 days she has had severe upper abdominal pain with one episode of vomiting. Patient denies any fever or diarrhea. At the time of arrival to the room she is writhing around in pain. TRAVEL OUTSIDE OF THE [place] IN LAST 30 DAYS: No - HPI Patient complains to provider of: Abdominal pain - Related Data Allergies/Adverse Reactions: gentamicin [Gentamicin] Allergy (Mild, Verified 06/22/18 14:49) UNK latex [Latex] Allergy (Mild, Verified 06/22/18 14:49) RASH metronidazole [From Flagyl] Allergy (Mild, Verified 06/22/18 14:49) Nausea Metronidazole HCl [From Flagyl] Allergy (Mild, Verified 06/22/18 14:49) Nausea Penicillins Allergy (Mild, Verified 06/22/18 14:49) THROAT SWELLS Past Medical History - General Information source: Relative, Outside Facility Records - Social History Smoking Status: Former Smoker Frequency of alcohol use: None Drug Abuse: None Family History: Reviewed & Not Pertinent Patient has suicidal ideation: No Patient has homicidal ideation: No - Past Medical History Cardiac Medical History: Reports: Hx Coronary Artery Disease, Hx Hypertension Denies: Hx Heart Attack Pulmonary Medical History: Reports: Hx Asthma, Hx COPD Denies: Hx Bronchitis, Hx Pneumonia Neurological Medical History: Denies: Hx Cerebrovascular Accident, Hx Seizures Renal/ Medical History: Denies: Hx Peritoneal Dialysis GI Medical History: Denies: Hx Hepatitis, Hx Hiatal Hernia, Hx Ulcer Musculoskeletal Medical History: Reports Hx Arthritis Infectious Medical History: Denies: Hx Hepatitis Past Surgical History: Reports: Hx Abdominal Surgery - colon resection, Hx Appendectomy, Hx Hysterectomy. Denies: Hx Mastectomy, Hx Open Heart Surgery, Hx Pacemaker - Immunizations Hx Diphtheria, Pertussis, Tetanus Vaccination: No - UNSURE Hx Pneumococcal Vaccination: 02/06/09 Review of Systems - Review of Systems Constitutional: No symptoms reported EENT: No symptoms reported Cardiovascular: No symptoms reported Respiratory: No symptoms reported Gastrointestinal: Abdominal pain, Vomiting - x1 yesterday Genitourinary: No symptoms reported Female Genitourinary: No symptoms reported Musculoskeletal: No symptoms reported Skin: No symptoms reported Hematologic/Lymphatic: No symptoms reported Neurological/Psychological: No symptoms reported Physical Exam - Vital signs Vitals: Temp Pulse Resp BP Pulse Ox 97.6 F 88 13 158/82 H 92 06/22/18 14:52 06/22/18 14:52 06/22/18 14:52 06/22/18 14:52 06/22/18 14:52 - Notes Notes: PHYSICAL EXAMINATION: GENERAL: Well-nourished and in mild distress. HEAD: Atraumatic, normocephalic. EYES: Pupils equal round and reactive to light, extraocular movements intact, conjunctiva are normal. ENT: Nares patent, oropharynx clear without exudates. Moist mucous membranes. NECK: Normal range of motion, supple without lymphadenopathy LUNGS: Breath sounds clear to auscultation bilaterally and equal. No wheezes rales or rhonchi. HEART: Regular rate and rhythm without murmurs ABDOMEN: Soft, nondistended abdomen. Tenderness to epigastric area. No guarding, no rebound. No masses appreciated. Female : deferred Musculoskeletal: Normal range of motion, no pitting or edema. No cyanosis. NEUROLOGICAL: Cranial nerves grossly intact. Normal speech, normal gait. Normal sensory, motor exams PSYCH: Normal mood, normal affect. SKIN: Warm, Dry, normal turgor, no rashes or lesions noted. Course - Re-evaluation Re-evalutation: At the time of my initial evaluation patient appears very uncomfortable and is moaning and writhing around in pain. She points to the upper abdomen and epigastric area. I ordered 50 mcg of fentanyl which completely resolved her pain. CBC and CMP are unremarkable. Lipase is within normal limits. Urine does not appear to be infected. CT of the abdomen and pelvis with IV and oral contrast does not show any acute findings to include diverticulitis. Patient's vital signs 06/22/18 19:21 Discussed case with attending physician Dr. Villagomez. Recommendations for Carafate, famotidine and a GI cocktail. All test results were discussed with patient and HER-2 daughters who are at the bedside. They are in agreement with plan of care. They verbalized understanding of ED return precautions as outlined in the discharge instructions. They are requesting a prescription for Zofran as well which will be provided. Patient will follow-up with her primary care provider in the next 2 to 3 days for follow-up and will return sooner if symptoms not improving. - Vital Signs Vital signs: Temp Pulse Resp BP Pulse Ox 97.5 F 69 17 163/48 H 95 06/22/18 19:53 06/22/18 15:09 06/22/18 19:05 06/22/18 19:05 06/22/18 19:05 - Laboratory Result Diagrams: 06/22/18 15:13 06/22/18 15:13 Laboratory results interpreted by me: 06/22/18 06/22/18 06/22/18 15:13 15:13 15:50 RBC 5.35 H Hgb 16.1 H Hct 47.5 H RDW 14.2 H Chloride 93 L Carbon Dioxide 35 H BUN 41 H Glucose 114 H Calcium 11.4 H AST 40 H Urine Protein 30 H Urine Ketones TRACE H Ur Leukocyte Esterase TRACE H Urine Ascorbic Acid 40 H Discharge - Discharge Clinical Impression: Gastritis Qualifiers: Gastritis type: unspecified gastritis Chronicity: acute Gastritis bleeding: without bleeding Qualified Code(s): K29.00 - Acute gastritis without bleeding Condition: Stable Disposition: HOME, SELF-CARE Additional Instructions: Your symptoms appear to be most consistent with stomach or upper intestinal irritation. Please begin taking famotidine 40 mg in the morning and 40 mg at night. You may also take medicine such as Pepto-Bismol or Tums to assist with your pain. Please return to emergency department immediately if you have worsening of your pain, shortness of breath, vomiting, become unable to exert y ourself due to pain or difficulty breathing, you pass out, or have any pain that radiates into your arms, jaw, or back. Please also return if you have any additional symptoms that are concerning to you. Follow-up with your primary care provider early next week for a follow-up. Let her know that your labs and CT scan today were normal. As we have discussed, the most important thing is lifestyle changes. You need to avoid smoking, sodas, tea, coffee, alcohol, spicy foods, and acidic foods such as citrus fruits, tomato based products, berries, and most fruit juices. Prescriptions: RX: Famotidine 40 mg PO BID #60 tablet Ondansetron [Zofran Odt 4 mg Tablet] 1 - 2 tab PO Q4H PRN #20 tab.rapdis PRN Reason: For Nausea/Vomiting Sucralfate [Carafate 1 gm Tablet] 1 gm PO ACHS #60 tablet Referrals: HAROLDO SOSA MD [Primary Care Provider] - Follow up as needed
--- NOTE | 2018-06-22 18:12 | RADIOLOGY REPORT (SQ) ---
EXAM DESCRIPTION: CT ABD/PELVIS WITH IV ORAL COMPLETED DATE/TIME: 06/22/2018 5:58 pm REASON FOR STUDY: Abdominal pain history of chronic and acute divert COMPARISON: 09/12/2012 TECHNIQUE: CT scan of the abdomen and pelvis performed using helical scanning technique with dynamic intravenous contrast injection. Oral contrast. Images reviewed with lung, soft tissue, and bone win dows. Reconstructed coronal and sagittal MPR images reviewed. Delayed images for evaluation of the ur inary system also acquired. All images stored on PACS. All CT scanners at this facility use dose modulation, iterative reconstruction, and/or weight based d osing when appropriate to reduce radiation dose to as low as reasonably achievable (ALARA). [facility]: Dose Right [facility]: CareDose [facility]: Dose Right [facility]: Teradose 4D [facility]: [email or web address] CONTRAST TYPE AND DOSE: contrast/concentration: Isovue 350.00 mg/ml; Total Contrast Delivered: 51.0 ml; Total Saline Delivered: 65.0 ml RENAL FUNCTION: BUN 41 creatinine 0.87 RADIATION DOSE: CT Rad equipment meets quality standard of care and radiation dose reduction techniq ues were employed. CTDIvol: 4.8 - 5.1 mGy. DLP: 755 mGy-cm.. LIMITATIONS: None. FINDINGS: LOWER CHEST: No significant findings. No nodules or infiltrates. LIVER: Normal size. No masses. No dilated ducts. SPLEEN: Normal size. No focal lesions. PANCREAS: No masses. No significant calcifications. No adjacent inflammation or peripancreatic fluid collections. Pancreatic duct not dilated. GALLBLADDER: Surgically absent. ADRENAL GLANDS: No significant masses or asymmetry. RIGHT KIDNEY AND URETER: No solid masses. No significant calcifications. No hydronephrosis or hyd roureter. LEFT KIDNEY AND URETER: No solid masses. No significant calcifications. No hydronephrosis or hydr oureter. AORTA AND VESSELS: No aneurysm. No dissection. Renal arteries, SMA, celiac without stenosis. RETROPERITONEUM: No retroperitoneal adenopathy, hemorrhage or masses. BOWEL AND PERITONEAL CAVITY: No masses or inflammatory changes. No free fluid or peritoneal masses. APPENDIX: Surgically absent. PELVIS: Urinary bladder is normal. Uterus is absent. Mesh repair of ventral hernia. ABDOMINAL WALL: No masses. No hernias. BONES: No significant or acute findings. OTHER: No other significant finding. IMPRESSION: NO SIGNIFICANT OR ACUTE FINDING IN THE ABDOMEN OR PELVIS ON CT SCAN WITH IV CONTRAST. TECHNICAL DOCUMENTATION: JOB ID: [id number] Quality ID # [id number]: Final reports with documentation of one or more dose reduction techniques (e.g., Au tomated exposure control, adjustment of the mA and/or kV according to patient size, use of iterative reconstruction technique) 2010 [employer]- All Rights Reserved Reading location - IP/workstation name: [email or web address]
[2018-06-22 19:14] VITALS: BP 163/48
[2018-06-22] MEDS ORDERED: METOCLOPRAMIDE HCL ORAL SOLN 10 MG/10 ML UDCUP PO ONE (19:17)
[2018-06-22] MEDS ORDERED: SUCRALFATE 1 GM TABLET PO ONE (19:17)
[2018-06-22] MEDS ORDERED: MAG HYDROX/AL HYDROX/SIMETH SUSP 30 ML UDCUP PO ONE (19:17)
[2018-06-22] MEDS ORDERED: LIDOCAINE 2% VISCOUS SOLN 20 ML UDCUP PO ONE (19:17)
[2018-06-22] MEDS ORDERED: FAMOTIDINE 20 MG TABLET PO ONE (19:17)
== END 2018-06-22 19:54 | disposition home or self-care (01) ==
LOC: ER 14:47
DX: K29.00 Acute gastritis without bleeding (principal); R10.10 Upper abdominal pain, unspecified; R10.13 Epigastric pain; R11.10 Vomiting, unspecified; I25.10 Atherosclerotic heart disease of native coronary artery without angina pectoris; I10 Essential (primary) hypertension; Z91.040 Latex allergy status; Z90.710 Acquired absence of both cervix and uterus; Z88.0 Allergy status to penicillin
CPT/HCPCS: 99284; 96361; 96374; 36415; 83690; 85025; 80053; 81001; 74177; A9270 ×3; J3010; J3490; J7030

== ENCOUNTER → 2018-06-29 | Outpatient (CLI) | payer MEDICARE, OTHER ==
[2018-06-29 17:17] LABS: ABSOLUTE EOSINOPHILS # (AUTO) 0.5 10^3/uL (0.0-0.6); ABSOLUTE LYMPHOCYTES (AUTO) 1.4 10^3/uL (0.5-4.7); ABSOLUTE MONOCYTES (AUTO) 0.5 10^3/uL (0.1-1.4); ABSOLUTE NEUT (AUTO) 3.5 10^3/uL (1.7-8.2); BASOPHILS % (AUTO) 0.7 % (0-2); EOSINOPHILS % (AUTO) 7.6 % (0-6); HEMATOCRIT 44.8 % (36.0-47.0); HEMOGLOBIN 15.3 g/dL (12.0-15.5); MEAN CORPUSCULAR HEMOGLOBIN 30.2 pg (27.0-33.4); MEAN CORPUSCULAR HGB CONC 34.2 g/dL (32.0-36.0); MEAN CORPUSCULAR VOLUME 88 fl (80-97); MONOCYTES % (AUTO) 8.8 % (3-13); PLATELET COUNT 263 10^3/uL (150-450); RED BLOOD COUNT 5.07 10^6/uL (3.72-5.28); RED CELL DISTRIBUTION WIDTH 13.8 % (11.5-14.0); SEGMENTED NEUTROPHILS % (AUTO) 58.9 % (42-78); TOTAL CELLS COUNTED % (AUTO) 100 %
[2018-06-29 17:55] LABS: IRON(TIBC) 32.8 ug/dL (37-170)
[2018-06-29 19:02] LABS: FOLATE > 20.00 ng/mL (>2.76)
== END ==
LOC: LAB 16:47
PROVIDERS: ATTEND Physician Assistant Medical
DX: R53.83 Other fatigue (principal); K59.00 Constipation, unspecified; R10.9 Unspecified abdominal pain; I10 Essential (primary) hypertension; R91.1 Solitary pulmonary nodule; R68.89 Other general symptoms and signs
CPT/HCPCS: 36415; 82607; 82652; 82728; 82746; 83540; 83550; 84443; 85025

== ENCOUNTER → 2018-11-14 | Outpatient (CLI) | payer MEDICARE, OTHER ==
--- NOTE | 2018-11-15 09:21 | RADIOLOGY REPORT (SQ) ---
EXAM DESCRIPTION: CT CHEST WITHOUT COMPLETED DATE/TIME: 11/14/2018 4:31 pm REASON FOR STUDY: R91.1 SOLITARY PULMONARY NODULE R91.1 SOLITARY PULMONARY NODULE COMPARISON: AP chest 03/02/2018 TECHNIQUE: CT scan performed of the chest without intravenous contrast. Images reviewed with lung, soft tissue and bone windows. Reconstructed coronal and sagittal MPR images reviewed. All images st ored on PACS. All CT scanners at this facility use dose modulation, iterative reconstruction, and/or weight based d osing when appropriate to reduce radiation dose to as low as reasonably achievable (ALARA). [facility]: Dose Right [facility]: CareDose [facility]: Dose Right [facility]: Teradose 4D [facility]: [employer] RADIATION DOSE: CT Rad equipment meets quality standard of care and radiation dose reduction techniq ues were employed. CTDIvol: 2.8 mGy. DLP: 117 mGy-cm. mGy. LIMITATIONS: No technical limitations. FINDINGS: LUNGS AND PLEURA: There is a large right hilar mass causing narrowing of the right upper l obe, middle lobe, and bronchus intermedius airways increased interstitial markings are present along the medial aspects of the right upper lobe, right middle lobe and right lower lobe likely interstitia l fluid from lymphatic obstruction. There is a small to moderate right pleural effusion. No dense consolidation worrisome for pneumonia. There is obstructive lung disease upper lobe predomi nant bilaterally. No left-sided pulmonary nodules or pleural effusion. No right or left pneumothorax HILAR AND MEDIASTINAL STRUCTURES: A dominant right hilar mass is present causing narrowing of the rig ht upper lobe, right middle lobe airways and bronchus intermedius. This mass measures 4.6 cm AP x 3 cm transverse by 4.8 cm craniocaudad, best shown on axial image 45 and coronal image 50. This is a noncontrast CT. There is bulky right upper mediastinal adenopathy causing about 50% narrow ing of the superior vena cava on axial image /. Multiple enlarged mediastinal lymph nodes are present as follows: Level 2L axial image , 1.7 x 1.4 cm Level 2R axial image , 2.2 x 1.4 cm Level 2R axial image , 2.5 x 2 cm Level 4R axial image , 1.9 x 1.6 cm Left level 5 hilar node axial image , 1.4 x 1.2 cm Sub- carinal level 7 axial image , 3.8 x 2.3 cm HEART AND VASCULAR STRUCTURES: No aneurysm. No pericardial effusion. Calcified coronary arteries UPPER ABDOMEN: Post cholecystectomy. Ventral hernia repair THYROID AND OTHER SOFT TISSUES: No masses. No adenopathy. BONES: No significant finding. HARDWARE: None in the chest. OTHER: No other significant findings. 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 TECHNICAL DOCUMENTATION: JOB ID: [id number] Quality ID # [id number]: Final reports with documentation of one or more dose reduction techniques (e.g., Au tomated exposure control, adjustment of the mA and/or kV according to patient size, use of iterative reconstruction technique) 2010 [employer]- All Rights Reserved Reading location - IP/workstation name: [email or web address]
== END ==
LOC: RAD 16:09
PROVIDERS: ATTEND Physician Assistant Medical
DX: R91.1 Solitary pulmonary nodule (principal); R59.0 Localized enlarged lymph nodes
CPT/HCPCS: 71250

== ENCOUNTER 2018-12-12 10:08 | Inpatient (IN) | payer MEDICARE, OTHER ==
[2018-12-12 10:49] LABS: ABSOLUTE EOSINOPHILS # (AUTO) 0.3 10^3/uL (0.0-0.6); ABSOLUTE LYMPHOCYTES (AUTO) 1.2 10^3/uL (0.5-4.7); ABSOLUTE MONOCYTES (AUTO) 0.6 10^3/uL (0.1-1.4); ABSOLUTE NEUT (AUTO) 4.3 10^3/uL (1.7-8.2); BASOPHILS % (AUTO) 0.6 % (0-2); EOSINOPHILS % (AUTO) 4.2 % (0-6); HEMATOCRIT 43.7 % (36.0-47.0); LYMPHOCYTES % (AUTO) 18.3 % (13-45); MEAN CORPUSCULAR HGB CONC 34.4 g/dL (32.0-36.0); MEAN CORPUSCULAR VOLUME 87 fl (80-97); MONOCYTES % (AUTO) 9.4 % (3-13); PLATELET COUNT 246 10^3/uL (150-450); RED BLOOD COUNT 5.01 10^6/uL (3.72-5.28); RED CELL DISTRIBUTION WIDTH 14.7 % (11.5-14.0); SEGMENTED NEUTROPHILS % (AUTO) 67.5 % (42-78); TOTAL CELLS COUNTED % (AUTO) 100 %; WHITE BLOOD COUNT 6.4 10^3/uL (4.0-10.5)
--- NOTE | 2018-12-12 10:59 | ER Document Report ---
ED Medical Screen (RME) - General Chief Complaint: Breathing Difficulty Stated Complaint: DIFFICULTY BREATHING Time Seen by Provider: 12/12/18 10:54 Primary Care Provider: BRITTNEE GIBBS PA-C [Primary Care Provider] - Follow up as needed Mode of Arrival: Ambulatory Information source: Patient Notes: 83-year-old female presented to ED for increased shortness of breath. Family member states the [facility] nurse came to the house examined the patient called Verenice FINN and she sent her to the emergency room. Patient states she has been short of breath for a long time is just an increase. At this moment her pulse is 85 O2 sat is 97% respirations are 23 and blood pressure is 154/96 on the monitor. Patient's O2 sat was 90 the 8 at this moment on 2 L I have turned her down to 1 L nasal cannula. She does have a history of lung CA daughter states she does not think it is metastatic. There has been no decision of CODE STATUS. Since daughter states there is a consult with 13 of this month. The [facility] is trying to get her in sooner. I have greeted and performed a rapid initial assessment of this patient. A comprehensive ED assessment and evaluation of the patient, analysis of test results and completion of medical decision making process will be conducted by an additional ED providers. TRAVEL OUTSIDE OF THE [place] IN LAST 30 DAYS: No - Related Data Allergies/Adverse Reactions: gentamicin [Gentamicin] Allergy (Mild, Verified 06/22/18 14:49) UNK latex [Latex] Allergy (Mild, Verified 06/22/18 14:49) RASH metronidazole [From Flagyl] Allergy (Mild, Verified 06/22/18 14:49) Nausea Metronidazole HCl [From Flagyl] Allergy (Mild, Verified 06/22/18 14:49) Nausea Penicillins Allergy (Mild, Verified 06/22/18 14:49) THROAT SWELLS Past Medical History - Past Medical History Cardiac Medical History: Reports: Hx Coronary Artery Disease, Hx Hypertension Denies: Hx Heart Attack Pulmonary Medical History: Reports: Hx Asthma, Hx COPD Denies: Hx Bronchitis, Hx Pneumonia Neurological Medical History: Denies: Hx Cerebrovascular Accident, Hx Seizures Renal/ Medical History: Denies: Hx Peritoneal Dialysis GI Medical History: Denies: Hx Hepatitis, Hx Hiatal Hernia, Hx Ulcer Musculoskeltal Medical History: Reports Hx Arthritis Infectious Medical History: Denies: Hx Hepatitis Past Surgical History: Reports: Hx Abdominal Surgery - colon resection, Hx Appendectomy, Hx Hysterectomy. Denies: Hx Mastectomy, Hx Open Heart Surgery, Hx Pacemaker - Immunizations Hx Diphtheria, Pertussis, Tetanus Vaccination: No - UNSURE Course - Laboratory Result Diagrams: 12/12/18 10:30 12/12/18 10:30 Laboratory results interpreted by me: 12/12/18 10:30 RDW 14.7 H Doctor's Discharge - Discharge Referrals: BRITTNEE GIBBS PA-C [Primary Care Provider] - Follow up as needed
[2018-12-12 11:08] LABS: ALBUMIN 3.4 g/dL (3.5-5.0); ALKALINE PHOSPHATASE 56 U/L (38-126); ANION GAP 8 (5-19); ASPARTATE AMINO TRANSFERASE 32 U/L (14-36); BILIRUBIN,DIRECT 0.2 mg/dL (0.0-0.4); BILIRUBIN,TOTAL 0.6 mg/dL (0.2-1.3); BLOOD UREA NITROGEN 12 mg/dL (7-20); CALCIUM 9.6 mg/dL (8.4-10.2); CARBON DIOXIDE 37 mmol/L (22-30); CHLORIDE 98 mmol/L (98-107); CREATINE KINASE 27 U/L (30-135); GLUCOSE 120 mg/dL (75-110); TOTAL PROTEIN 5.9 g/dL (6.3-8.2)
[2018-12-12 11:14] LABS: POTASSIUM 2.8 mmol/L (3.6-5.0)
[2018-12-12 11:20] LABS: CREATINE KINASE MB 0.99 ng/mL (<4.55); TROPONIN I 0.03 ng/mL
--- NOTE | 2018-12-12 11:28 | RADIOLOGY REPORT (SQ) ---
EXAM DESCRIPTION: CHEST SINGLE VIEW COMPLETED DATE/TIME: 12/12/2018 10:47 am REASON FOR STUDY: bed 14 db COMPARISON: 06/10/2018 CT chest dated 11/14/2018 NUMBER OF VIEWS: One view. TECHNIQUE: Single frontal radiographic view of the chest acquired. LIMITATIONS: None. FINDINGS: LUNGS AND PLEURA: There is right perihilar airspace disease. Small right pleural effusion . Prominent right cardiophrenic angle fat pad. MEDIASTINUM AND HILAR STRUCTURES: Right hilar fullness consistent with known mass demonstrated on rec ent CT. HEART AND VASCULAR STRUCTURES: Heart normal in size. Normal vasculature. BONES: No acute findings. HARDWARE: None in the chest. OTHER: No other significant finding. IMPRESSION: Right hilar mass with probable postobstructive pneumonia. Small right pleural effusion. TECHNICAL DOCUMENTATION: JOB ID: [id number] [employer]- All Rights Reserved Reading location - IP/workstation name: [email or web address]
--- NOTE | 2018-12-12 11:59 | ER Document Report ---
ED General - General Chief Complaint: Shortness Of Breath Stated Complaint: DIFFICULTY BREATHING Time Seen by Provider: 12/12/18 10:54 Primary Care Provider: BRITTNEE GIBBS PA-C [Primary Care Provider] - Follow up as needed Mode of Arrival: Ambulatory Information source: Patient, Relative TRAVEL OUTSIDE OF THE [place] IN LAST 30 DAYS: No - HPI Notes: 83-year-old female with recent diagnosis of lung CA after discovery of a hilar mass. Sent in by home health nurse because of weakness and general failure to thrive and new hypoxemia. She does not currently have any home oxygen. Daughter who is at the bedside states that the patient has had a bronchoscopy but has not had initiation of any therapy for her tumor at this time. Onset Duration 3 days. Quality worsening. Week coughing and not eating. No pain reported at this time. Pertinent prior history: Patient has a past history of breast and ovarian cancer treated successfully years ago. She also has a history of a partial colectomy for diverticular disease. - Related Data Allergies/Adverse Reactions: gentamicin [Gentamicin] Allergy (Mild, Verified 06/22/18 14:49) UNK latex [Latex] Allergy (Mild, Verified 06/22/18 14:49) RASH metronidazole [From Flagyl] Allergy (Mild, Verified 06/22/18 14:49) Nausea Metronidazole HCl [From Flagyl] Allergy (Mild, Verified 06/22/18 14:49) Nausea Penicillins Allergy (Mild, Verified 06/22/18 14:49) THROAT SWELLS Past Medical History - General Information source: Patient, Relative - Social History Smoking Status: Former Smoker Family History: Reviewed & Not Pertinent Patient has suicidal ideation: No Patient has homicidal ideation: No - Past Medical History Cardiac Medical History: Reports: Hx Coronary Artery Disease, Hx Hypertension Denies: Hx Heart Attack Pulmonary Medical History: Reports: Hx Asthma, Hx COPD Denies: Hx Bronchitis, Hx Pneumonia Neurological Medical History: Denies: Hx Cerebrovascular Accident, Hx Seizures Renal/ Medical History: Denies: Hx Peritoneal Dialysis GI Medical History: Denies: Hx Hepatitis, Hx Hiatal Hernia, Hx Ulcer Musculoskeletal Medical History: Reports Hx Arthritis Infectious Medical History: Denies: Hx Hepatitis Past Surgical History: Reports: Hx Abdominal Surgery - colon resection, Hx Appendectomy, Hx Hysterectomy. Denies: Hx Mastectomy, Hx Open Heart Surgery, Hx Pacemaker - Immunizations Hx Diphtheria, Pertussis, Tetanus Vaccination: No - UNSURE Hx Pneumococcal Vaccination: 02/06/09 Review of Systems - Review of Systems Notes: Constitutional: Negative for fever. HENT: Negative for sore throat. Eyes: Negative for visual changes. Cardiovascular: Negative for chest pain. Respiratory: As per HPI. Gastrointestinal: Nausea with poor oral intake. Genitourinary: Negative for dysuria. Musculoskeletal: Negative for back pain. Skin: Negative for rash. Neurological: Negative for headaches, weakness or numbness. 10 point ROS negative except as marked above and in HPI. Physical Exam - Vital signs Vitals: Temp 97.7 F 12/12/18 10:10 Notes: GENERAL: Frail elderly female who appears dehydrated chronically ill. Sleeping when I entered the room but she is arousable. SKIN: Diminished skin turgor. No rashes. HEAD: Bitemporal wasting. EYES: PERRLA. Conjunctivae and sclerae clear. EARS: CANALS AND TMS CLEAR. NOSE: CLEAR. MOUTH: Dry mucosa. Good dentition. No stridor or edema. No drooling. NECK: Supple. No masses or thyromegaly. No adenopathy. Carotids 2+ without bruits. No JVD. BACK: Symmetrical without tenderness. CHEST: Respirations tachypneic. Diminished breath sounds right base. HEART: Regular rhythm. No murmur gallop or rub. ABDOMEN: Soft nontender without masses, organomegaly or rebound. Bowel sounds normally active. No bruits. GENITALIA: Deferred. EXTREMITIES: No edema. No calf tenderness. Cap refill less than 1.5 seconds. Dorsalis pedis and posterior tibial pulses 3+ and symmetrical. NEUROLOGICAL: GCS 14. Disoriented to time. Fluent speech. Cranial nerves II through XII intact. Sensorimotor and cerebellar normal. Normal tone. Course - Re-evaluation Re-evalutation: 12/12/18 12:20 The patient is an elderly female the patient is an elderly female recent diagnosis of lung CA who now presents with dehydration and what appears to be a postobstructive pneumonia with new hypoxemia and she is also moderately hypokalemic. Family and patient have requested DNR/DNI status and I will complete the appropriate documentation. She is receiving IV normal saline with supplemental potassium and supplemental oxygen. Case has been presented to on- call hospitalist Dr. Adolfo who will admit the patient. - Vital Signs Vital signs: Temp Pulse Resp BP Pulse Ox 97.7 F 20 170/90 H 94 12/12/18 10:10 12/12/18 12:17 12/12/18 12:17 12/12/18 12:17 - Laboratory Result Diagrams: 12/12/18 10:30 12/12/18 10:30 Laboratory results interpreted by me: 12/12/18 12/12/18 10:30 10:30 RDW 14.7 H Potassium 2.8 L* Carbon Dioxide 37 H Glucose 120 H Creatine Kinase 27 L Total Protein 5.9 L Albumin 3.4 L - Diagnostic Test Radiology reviewed: Reports reviewed Discharge - Discharge Clinical Impression: Dehydration, Hypokalemia Pneumonia Qualifiers: Pneumonia type: due to unspecified organism Laterality: unspecified laterality Lung location: unspecified part of lung Qualified Code(s): J18.9 - Pneumonia, unspecified organism Lung cancer Qualifiers: Laterality: unspecified laterality Lung location: hilum of lung Qualified Code(s): C34.00 - Malignant neoplasm of unspecified main bronchus Condition: Fair Disposition: ADMITTED INPATIENT Admitting Provider: Adolfo (Hospitalist) Unit Admitted: Telemetry Referrals: BRITTNEE GIBBS PA-C [Primary Care Provider] - Follow up as needed
[2018-12-12] MEDS ORDERED: POTASSI CL 20 MEQ/NS 1L 1,000 ML IV ONE (12:11)
[2018-12-12] MEDS ORDERED: CEFTRIAXONE 1 GM/D5W RTU 1 GM/50 ML RTUPB IV ONE (12:12)
[2018-12-12] MEDS ORDERED: ONDANSETRON HCL INJ/PF 4 MG/2 ML SDV IV ONE (12:19)
[2018-12-12] MEDS ORDERED: PREDNISONE 20 MG TABLET PO ONE (12:54)
[2018-12-12] MEDS: HEPARIN SOD (PORCINE) 5,000 UNIT/ML 1 ML VIAL SUBCUT SCH ×2 (14:12→21:58)
[2018-12-12] MEDS: AZITHROMYCIN 500 MG in DEXTROSE 5%-WATER 250 ML IV SCH (14:50)
[2018-12-12 15:03] LABS: AMORPHOUS SEDIMENT,URINE TRACE /HPF; APPEARANCE,URINE CLOUDY; BILIRUBIN,URINE NEGATIVE (NEGATIVE); CALCIUM OXALATE CRYSTALS,URINE MODERATE /HPF; COLOR,URINE AMBER; GLUCOSE, URINE NEGATIVE (NEGATIVE); KETONES,URINE 20 mg/dL (NEGATIVE); LEUKOCYTE ESTERASE,URINE NEGATIVE (NEGATIVE); NITRITE,URINE NEGATIVE (NEGATIVE); PROTEIN,URINE 100 mg/dL (NEGATIVE); URINE SPECIFIC GRAVITY 1.025; UROBILINOGEN,URINE NEGATIVE mg/dL (<2.0)
--- NOTE | 2018-12-12 17:38 | PDOC H&P ---
History of Present Illness Admission Date/PCP: 12/12/18 13:39 BRITTNEE GIBBS PA-C History of Present Illness: GILMA WILDER is a 83 year old female recently diagnosed with a right hilar lung cancer and had a bronchoscopy last in [place] and just got the pathology results back confirming that it was cancer and has follow-up scheduled in [address] Zimmerman, but woke up this morning with worsening shortness of breath. She is not on oxygen at home but her daughter says that her SPO2 is usually 90 to 94%, and when the home health nurse came to see her today it was i n the 80s. She has not been running any fever and she does not have any cough. In the ER she was noted to have evidence of what looks like a possible postobstructive pneumonia on the right side and low potassium. She is being admitted for further evaluation and management. She said she quit smoking 10 years ago but smoked for a very long time prior to that. She says she does not take any medications for COPD at home but she does have an albuterol inhaler. Her medication list that we have shows her being on Advair and Spiriva. Past Medical History Cardiac Medical History: Reports: Coronary Artery Disease, Hypertension Denies: Myocardial Infarction Pulmonary Medical History: Reports: Asthma, Chronic Obstructive Pulmonary Disease (COPD) Denies: Bronchitis, Pneumonia Neurological Medical History: Denies: Seizures GI Medical History: Denies: Hepatitis, Hiatal Hernia Musculoskeltal Medical History: Reports: Arthritis Psychiatric Medical History: Reports: Depression Hematology: Reports: Anemia - MEDICATED Denies: Sickle Cell Disease Past Surgical History Past Surgical History: Reports: Appendectomy, Hysterectomy Denies: Amputation, Mastectomy, Pacemaker Social History Smoking Status: Former Smoker Cigarettes Packs Per Day: 1 Electronic Cigarette use?: No Cigars Per Day: 0 Pipes Per Day: 0 Number of Years Smokin Last Time Smoked: 02/07/2008 Frequency of Alcohol Use: None Hx Recreational Drug Use: No Drugs: None Hx Prescription Drug Abuse: No - Advance Directive Resuscitation Status: Do Not Resuscitate Family History Family History: Reviewed & Not Pertinent Parental Family History Reviewed: Yes Children Family History Reviewed: Yes Sibling(s) Family History Reviewed.: Yes Medication/Allergy Home Medications: Acetaminophen [Tylenol 325 mg Tablet] 325 mg PO Q12HP PRN 12/12/18 Aspirin [Ecotrin 81 mg EC Tablet] 81 mg PO DAILY 12/12/18 Cetirizine HCl [Zyrtec 10 mg Tablet] 10 mg PO QAM 12/12/18 Donepezil HCl [Aricept] 10 mg PO QHS 12/12/18 Folic Acid [Folvite 1 mg Tablet] 1 mg PO DAILY 12/12/18 Magnesium Oxide [Mag-Ox 400 mg Tablet] 400 mg PO DAILY 12/12/18 Megestrol Acetate 400 mg PO DAILY 12/12/18 Mirtazapine [Remeron 15 mg Tablet] 15 mg PO QHS 12/12/18 Multivitamin [Tab-A-Yared (Multiple Vitamin) Tablet] 1 tab PO DAILY 12/12/18 Ondansetron HCl [Zofran 4 mg Tablet] 4 mg PO Q8HP PRN 12/12/18 Pravastatin Sodium [Pravachol] 20 mg PO QHS 12/12/18 Ropinirole HCl [Requip] 0.5 mg PO QHS 12/12/18 Allergies/Adverse Reactions: gentamicin [Gentamicin] Allergy (Mild, Verified 12/12/18 16:53) UNK latex [Latex] Allergy (Mild, Verified 12/12/18 16:53) RASH metronidazole [From Flagyl] Allergy (Mild, Verified 12/12/18 16:53) Nausea Metronidazole HCl [From Flagyl] Allergy (Mild, Verified 12/12/18 16:53) Nausea Penicillins Allergy (Mild, Verified 12/12/18 16:53) THROAT SWELLS Review of Systems All systems: reviewed and no additional remarkable complaints except as stated - All systems were reviewed and were negative except as noted in the HPI Physical Exam Vital Signs: Temp Pulse Resp BP Pulse Ox 98.2 F 85 20 170/75 H 97 12/12/18 16:06 12/12/18 16:06 12/12/18 16:06 12/12/18 16:06 12/12/18 16:06 Intake & Output 12/11/18 12/12/18 12/13/18 06:59 06:59 06:59 Intake Total 50 Balance 50 Weight 37.195 kg General appearance: PRESENT: cooperative, disheveled, mild distress, thin Eye exam: PRESENT: EOMI, PERRLA. ABSENT: conjunctival injection, nystagmus, scleral icterus Ear exam: PRESENT: normal external ear exam Mouth exam: PRESENT: dry mucosa, neck supple Teeth exam: PRESENT: poor dentation Throat exam: ABSENT: post pharyngeal erythema Neck exam: PRESENT: full ROM. ABSENT: carotid bruit, JVD, lymphadenopathy, meningismus, tenderness, thyromegaly Respiratory exam: PRESENT: accessory muscle use, prolonged expiratory phas, symmetrical, wheezes. ABSENT: chest wall tenderness, crackles, rhonchi, tachypnea, unlabored Cardiovascular exam: PRESENT: RRR, +S1, +S2 Pulses: PRESENT: normal carotid pulses Vascular exam: PRESENT: normal capillary refill GI/Abdominal exam: PRESENT: normal bowel sounds, soft. ABSENT: distended, guarding, rebound, tenderness Extremities exam: ABSENT: clubbing, pedal edema Musculoskeletal exam: PRESENT: normal inspection. ABSENT: deformity Neurological exam: PRESENT: alert, awake, oriented to person, oriented to place, oriented to situation, CN II-XII grossly intact. ABSENT: motor sensory deficit Psychiatric exam: PRESENT: appropriate affect, normal mood Skin exam: PRESENT: dry, warm Results Laboratory Results: 12/12/18 10:30 12/12/18 10:30 12/12/18 12/12/18 12/12/18 10:30 10:30 10:30 WBC 6.4 RBC 5.01 Hgb 15.0 Hct 43.7 MCV 87 MCH 30.0 MCHC 34.4 RDW 14.7 H Plt Count 246 Seg Neutrophils % 67.5 Sodium 142.7 Potassium 2.8 L* Chloride 98 Carbon Dioxide 37 H Anion Gap 8 BUN 12 Creatinine 0.61 Est GFR ( Amer) > 60 Glucose 120 H Calcium 9.6 Magnesium 2.2 Total Bilirubin 0.6 AST 32 Alkaline Phosphatase 56 Total Protein 5.9 L Albumin 3.4 L Urine Color Urine Appearance Urine pH Ur Specific [place] Urine Protein Urine Glucose (UA) Urine Ketones Urine Blood Urine Nitrite Ur Leukocyte Esterase Urine WBC (Auto) Urine RBC (Auto) 12/12/18 13:31 WBC RBC Hgb Hct MCV MCH MCHC RDW Plt Count Seg Neutrophils % Sodium Potassium Chloride Carbon Dioxide Anion Gap BUN Creatinine Est GFR ( Amer) Glucose Calcium Magnesium Total Bilirubin AST Alkaline Phosphatase Total Protein Albumin Urine Color UNA Urine Appearance CLOUDY Urine pH 8.0 Ur Specific [place] 1.025 Urine Protein 100 H Urine Glucose (UA) NEGATIVE Urine Ketones 20 H Urine Blood NEGATIVE Urine Nitrite NEGATIVE Ur Leukocyte Esterase NEGATIVE Urine WBC (Auto) 5 Urine RBC (Auto) 1 12/12/18 12/12/18 10:30 10:30 Creatine Kinase 27 L CK-MB (CK-2) 0.99 Troponin I 0.030 Impressions: Chest X-Ray 12/12/18 10:13 IMPRESSION: Right hilar mass with probable postobstructive pneumonia. Small right pleural effusion. Assessment and Plan - Diagnosis (1) COPD with acute exacerbation Is this a current diagnosis for this admission?: Yes Plan: Steroids, antibiotics, supplemental O2, bronchodilators. Will resume her Advair and Spiriva. (2) Hypokalemia Is this a current diagnosis for this admission?: Yes Plan: Apparently this is an ongoing issue for her. We will continue with supplementation. (3) Lung cancer Qualifiers: Laterality: right Lung location: hilum of lung Qualified Code(s): C34.01 - Malignant neoplasm of right main bronchus Is this a current diagnosis for this admission?: Yes Plan: She has follow-up scheduled with oncology as an outpatient (4) Pneumonia Qualifiers: Pneumonia type: due to unspecified organism Laterality: right Lung lo cation: middle lobe of lung Qualified Code(s): J18.1 - Lobar pneumonia, unspecified organism Is this a current diagnosis for this admission?: Yes Plan: Appears to be a postobstructive pneumonia behind the mass. We will put her empirically on some Rocephin and azithromycin. (5) Protein-calorie malnutrition, moderate Is this a current diagnosis for this admission?: Yes Plan: BMI is only 16. Will encourage p.o. intake and will add meal supplements. - Time Time Spent with patient: 35 or more minutes - Inpatient Certification Based on my medical assessment, after consideration of the patient's comorbidities, presenting symptoms, or acuity I expect that the services needed warrant INPATIENT care.: Yes I certify that my determination is in accordance with my understanding of Medicare's requirements for reasonable and necessary INPATIENT services [42 CFR 412.3e].: Yes Medical Necessity: Significant Comorbidiites Make Outpatient Treatment Too Risky, Need Close Monitoring Due to Risk of Patient Decompensation, Need For Continuous Telemetry Monitoring, Need for Nebulizer Therapy and Monitoring of R esponse, Need for IV Antibiotics
[2018-12-12] MEDS: IPRATROPIUM/ALBUTEROL 0.5-2.5 MG/3 ML AMPUL NEB PRN (18:25)
[2018-12-12] MEDS: DONEPEZIL HCL 5 MG TABLET PO SCH (21:58)
[2018-12-12] MEDS: MIRTAZAPINE 15 MG TABLET PO SCH (21:58)
[2018-12-12] MEDS: ROPINIROLE HCL 1 MG TABLET PO SCH (21:58)
[2018-12-12] MEDS: ACETAMINOPHEN 325 MG TABLET PO PRN (21:59)
[2018-12-12] MEDS ORDERED: (PENDING PHARMACY ID) (Donepezil Hcl [Aricept] 10 MG) PO SCH (22:00)
[2018-12-12] MEDS ORDERED: (PENDING PHARMACY ID) (Ropinirole Hcl [Requip] 0.5 MG) PO SCH (22:00)
--- NOTE | 2018-12-12 23:38 | EKG REPORT ---
SEVERITY:- ABNORMAL ECG - SINUS OR ECTOPIC ATRIAL RHYTHM LVH WITH SECONDARY REPOLARIZATION ABNORMALITY INFERIOR INFARCT, AGE INDETERMINATE ANTERIOR INFARCT, AGE INDETERMINATE BORDERLINE PROLONGED QT INTERVAL : Confirmed by: Nabil Beatty 12-Dec-2018 23:37:03
[2018-12-13 05:29] LABS: HEMATOCRIT 40.8 % (36.0-47.0); HEMOGLOBIN 13.9 g/dL (12.0-15.5); MEAN CORPUSCULAR HEMOGLOBIN 29.8 pg (27.0-33.4); MEAN CORPUSCULAR HGB CONC 34.1 g/dL (32.0-36.0); MEAN CORPUSCULAR VOLUME 87 fl (80-97); PLATELET COUNT 236 10^3/uL (150-450); RED BLOOD COUNT 4.67 10^6/uL (3.72-5.28); RED CELL DISTRIBUTION WIDTH 14.5 % (11.5-14.0); WHITE BLOOD COUNT 3.4 10^3/uL (4.0-10.5)
[2018-12-13] MEDS: HEPARIN SOD (PORCINE) 5,000 UNIT/ML 1 ML VIAL SUBCUT SCH ×3 (05:40→22:46)
[2018-12-13 05:55] LABS: ANION GAP 7 (5-19); BLOOD UREA NITROGEN 11 mg/dL (7-20); CALCIUM 8.9 mg/dL (8.4-10.2); CARBON DIOXIDE 33 mmol/L (22-30); CHLORIDE 99 mmol/L (98-107); GLUCOSE 119 mg/dL (75-110); POTASSIUM 3.3 mmol/L (3.6-5.0)
[2018-12-13] MEDS: CETIRIZINE 10 MG TABLET PO SCH (07:38)
[2018-12-13] MEDS ORDERED: ONDANSETRON HCL INJ/PF 4 MG/2 ML SDV IV ONE (08:00)
[2018-12-13] MEDS: PREDNISONE 20 MG TABLET PO SCH (10:06)
[2018-12-13] MEDS: ASPIRIN 81 MG TABLET, ENT COATED PO SCH (10:06)
[2018-12-13] MEDS: FOLIC ACID 1 MG TABLET PO SCH (10:06)
[2018-12-13] MEDS: CEFTRIAXONE 1 GM/D5W RTU 1 GM/50 ML RTUPB IV SCH (10:08)
[2018-12-13] MEDS: AZITHROMYCIN 500 MG in DEXTROSE 5%-WATER 250 ML IV SCH (10:56)
[2018-12-13] MEDS: IPRATROPIUM/ALBUTEROL 0.5-2.5 MG/3 ML AMPUL NEB PRN (11:24)
[2018-12-13] MEDS: ACETAMINOPHEN 325 MG TABLET PO PRN ×2 (11:38→21:01)
--- NOTE | 2018-12-13 15:46 | PDOC PROGRESS REPORT ---
Subjective Progress Note for:: 12/13/18 Subjective:: No adverse events overnight. Breathing has improved a little bit but she still has some pursed lip breathing. Apparently she had all of her dinner last night but ate very little for breakfast this morning. Reason For Visit: ACUTE HYPOXIC RESPIRATORY FAILURE, AECOPD, POST Physical Exam Vital Signs: Temp Pulse Resp BP Pulse Ox 97.8 F 79 24 H 152/79 H 95 12/13/18 07:59 12/13/18 14:00 12/13/18 11:21 12/13/18 07:59 12/13/18 11:21 Intake & Output 12/12/18 12/13/18 12/14/18 06:59 06:59 06:59 Intake Total 1520 300 Balance 1520 300 Weight 38.2 kg General appearance: PRESENT: cooperative, disheveled, mild distress, thin Respiratory exam: PRESENT: prolonged expiratory phas, wheezes - Right lung. ABSENT: accessory muscle use, chest wall tenderness, crackles, rhonchi, symmetrical, tachypnea, unlabored Cardiovascular exam: PRESENT: RRR, +S1, +S2 Pulses: PRESENT: normal carotid pulses Vascular exam: PRESENT: normal capillary refill GI/Abdominal exam: PRESENT: normal bowel sounds, soft. ABSENT: distended, guarding, rebound, tenderness Extremities exam: ABSENT: clubbing, pedal edema Musculoskeletal exam: PRESENT: normal inspection. ABSENT: deformity Neurological exam: PRESENT: alert, awake, oriented to person, oriented to place Psychiatric exam: PRESENT: flat affect Skin exam: PRESENT: dry, warm Results Laboratory Results: 12/13/18 04:31 12/13/18 04:31 12/13/18 12/13/18 04:31 04:31 WBC 3.4 L RBC 4.67 Hgb 13.9 Hct 40.8 MCV 87 MCH 29.8 MCHC 34.1 RDW 14.5 H Plt Count 236 Sodium 138.5 Potassium 3.3 L Chloride 99 Carbon Dioxide 33 H Anion Gap 7 BUN 11 Creatinine 0.56 Est GFR ( Amer) > 60 Glucose 119 H Calcium 8.9 12/12/18 12/12/18 10:30 10:30 Creatine Kinase 27 L CK-MB (CK-2) 0.99 Troponin I 0.030 Impressions: Chest X-Ray 12/12/18 10:13 IMPRESSION: Right hilar mass with probable postobstructive pneumonia. Small right pleural effusion. 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 intake as well as dietary supplements - Time Time Spent with patient: 15-24 minutes
[2018-12-13] MEDS: MIRTAZAPINE 15 MG TABLET PO SCH (22:45)
[2018-12-13] MEDS: DONEPEZIL HCL 5 MG TABLET PO SCH (22:45)
[2018-12-13] MEDS: ROPINIROLE HCL 1 MG TABLET PO SCH (22:46)
[2018-12-14] MEDS: IPRATROPIUM/ALBUTEROL 0.5-2.5 MG/3 ML AMPUL NEB PRN ×2 (04:35→14:26)
[2018-12-14] MEDS: HEPARIN SOD (PORCINE) 5,000 UNIT/ML 1 ML VIAL SUBCUT SCH ×3 (05:07→21:53)
[2018-12-14] MEDS: ACETAMINOPHEN 325 MG TABLET PO PRN (05:07)
[2018-12-14 05:36] LABS: HEMATOCRIT 46.9 % (36.0-47.0); HEMOGLOBIN 15.8 g/dL (12.0-15.5); MEAN CORPUSCULAR HEMOGLOBIN 29.4 pg (27.0-33.4); MEAN CORPUSCULAR HGB CONC 33.6 g/dL (32.0-36.0); MEAN CORPUSCULAR VOLUME 87 fl (80-97); PLATELET COUNT 331 10^3/uL (150-450); RED BLOOD COUNT 5.37 10^6/uL (3.72-5.28); RED CELL DISTRIBUTION WIDTH 14.8 % (11.5-14.0)
[2018-12-14 05:38] LABS: WHITE BLOOD COUNT 11.4 10^3/uL (4.0-10.5)
[2018-12-14 05:50] LABS: ANION GAP 6 (5-19); BLOOD UREA NITROGEN 12 mg/dL (7-20); CALCIUM 9.7 mg/dL (8.4-10.2); CARBON DIOXIDE 35 mmol/L (22-30); CHLORIDE 99 mmol/L (98-107); GLUCOSE 110 mg/dL (75-110); POTASSIUM 3.2 mmol/L (3.6-5.0)
[2018-12-14] MEDS: CETIRIZINE 10 MG TABLET PO SCH (08:00)
[2018-12-14] MEDS ORDERED: POTASSIUM CHLORIDE 10 MEQ CAPSULE.ER PO ONE (10:00)
[2018-12-14] MEDS: CEFTRIAXONE 1 GM/D5W RTU 1 GM/50 ML RTUPB IV SCH (10:17)
[2018-12-14] MEDS: ASPIRIN 81 MG TABLET, ENT COATED PO SCH (10:21)
[2018-12-14] MEDS: FOLIC ACID 1 MG TABLET PO SCH (10:21)
[2018-12-14] MEDS: PREDNISONE 20 MG TABLET PO SCH (10:21)
[2018-12-14] MEDS: AZITHROMYCIN 500 MG in DEXTROSE 5%-WATER 250 ML IV SCH (10:53)
--- NOTE | 2018-12-14 11:55 | PDOC PROGRESS REPORT ---
Subjective Progress Note for:: 12/14/18 Subjective:: GILMA WILDER is a 83 year old female recently diagnosed with a right hilar lung cancer and had a bronchoscopy last in [place] and just got the pathology results back confirming that it was cancer and has follow-up scheduled in [address] Zimmerman, but woke up this morning with worsening shortness of breath. She is not on oxygen at home but her daughter says that her SPO2 is usually 90 to 94%, and when the home health nurse came to see her today it was in the 80s. She has not been running any fever and she does not have any cough. In the ER she was noted to have evidence of what looks like a possible postobstructive pneumonia on the right side and low potassium. She is being admitted for further evaluation and management. She said she quit smoking 10 years ago but smoked for a very long time prior to that. She says she does not take any medications for COPD at home but she does have an albuterol inhaler. Her medication list that we have shows her being on Advair and Spiriva. 12/14/2018. No acute events overnight. Patient comfortably resting in bed, and 2 L nasal cannula saturating WNL, denies history of COPD, does not use oxygen at home, denies any fever, chills, nausea, vomiting, diarrhea, constipation or any urinary symptoms. She would like to be discharged home upon discharge. She is stating that she is living by herself. Reason For Visit: ACUTE HYPOXIC RESPIRATORY FAILURE, AECOPD, POST Physical Exam Vital Signs: Temp Pulse Resp BP Pulse Ox 98.5 F 104 H 20 149/66 H 94 12/14/18 07:47 12/14/18 07:47 12/14/18 07:47 12/14/18 07:47 12/14/18 07:47 Intake & Output 12/13/18 12/14/18 12/15/18 06:59 06:59 06:59 Intake Total 1520 1140 50 Balance 1520 1140 50 Weight 38.2 kg 38 kg General appearance: PRESENT: no acute distress, thin Respiratory exam: PRESENT: clear to auscultation shayy. ABSENT: rales, rhonchi, wheezes Cardiovascular exam: PRESENT: RRR. ABSENT: diastolic murmur, rubs, systolic murmur GI/Abdominal exam: PRESENT: normal bowel sounds, soft. ABSENT: distended, guarding, mass, organolmegaly, rebound, tenderness Neurological exam: PRESENT: alert, awake, oriented to person, oriented to place, oriented to time, oriented to situation, CN II-XII grossly intact. ABSENT: motor sensory deficit Results Laboratory Results: 12/14/18 04:53 12/14/18 04:53 12/14/18 12/14/18 04:53 04:53 WBC 11.4 H D RBC 5.37 H Hgb 15.8 H Hct 46.9 MCV 87 MCH 29.4 MCHC 33.6 RDW 14.8 H Plt Count 331 Sodium 139.7 Potassium 3.2 L Chloride 99 Carbon Dioxide 35 H Anion Gap 6 BUN 12 Creatinine 0.54 Est GFR ( Amer) > 60 Glucose 110 Calcium 9.7 12/12/18 12/12/18 10:30 10:30 Creatine Kinase 27 L CK-MB (CK-2) 0.99 Troponin I 0.030 Impressions: Chest X-Ray 12/12/18 10:13 IMPRESSION: Right hilar mass with probable postobstructive pneumonia. Small right pleural effusion. 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 intake as well as dietary supplements
[2018-12-14] MEDS ORDERED: POTASSIUM CHLORIDE 20 MEQ PACKET PO ONE (12:20)
[2018-12-14] MEDS ORDERED: HYDRALAZINE HCL INJ/PF 20 MG/1 ML SDV IV PRN (15:49)
[2018-12-14] MEDS: ROPINIROLE HCL 1 MG TABLET PO SCH (21:54)
[2018-12-14] MEDS: DONEPEZIL HCL 5 MG TABLET PO SCH (21:55)
[2018-12-14] MEDS: ATORVASTATIN CALCIUM 10 MG TABLET PO SCH (21:55)
[2018-12-14] MEDS: MIRTAZAPINE 15 MG TABLET PO SCH (21:55)
[2018-12-14] MEDS ORDERED: LACTULOSE SYRUP 20 GM/30 ML UDCUP PO ONE (23:45)
[2018-12-15] MEDS: IPRATROPIUM/ALBUTEROL 0.5-2.5 MG/3 ML AMPUL NEB PRN (00:08)
[2018-12-15] MEDS: HEPARIN SOD (PORCINE) 5,000 UNIT/ML 1 ML VIAL SUBCUT SCH ×3 (05:26→21:26)
[2018-12-15 05:58] LABS: HEMATOCRIT 45.9 % (36.0-47.0); HEMOGLOBIN 15.8 g/dL (12.0-15.5); MEAN CORPUSCULAR HEMOGLOBIN 30.2 pg (27.0-33.4); MEAN CORPUSCULAR HGB CONC 34.4 g/dL (32.0-36.0); MEAN CORPUSCULAR VOLUME 88 fl (80-97); PLATELET COUNT 304 10^3/uL (150-450); RED BLOOD COUNT 5.23 10^6/uL (3.72-5.28); RED CELL DISTRIBUTION WIDTH 15.1 % (11.5-14.0); WHITE BLOOD COUNT 8.8 10^3/uL (4.0-10.5)
[2018-12-15 06:24] LABS: ANION GAP 9 (5-19); BLOOD UREA NITROGEN 12 mg/dL (7-20); CALCIUM 9.6 mg/dL (8.4-10.2); CARBON DIOXIDE 33 mmol/L (22-30); CHLORIDE 101 mmol/L (98-107); GLUCOSE 117 mg/dL (75-110); POTASSIUM 3.1 mmol/L (3.6-5.0)
[2018-12-15] MEDS: METOPROLOL TARTRATE 25 MG TABLET PO SCH ×2 (09:16→21:28)
[2018-12-15] MEDS: MEGESTROL ACETATE SUSP 400 MG/10 ML UDCUP PO SCH (09:16)
[2018-12-15] MEDS: PREDNISONE 20 MG TABLET PO SCH (09:17)
[2018-12-15] MEDS: POTASSIUM CHLORIDE 20 MEQ PACKET PO SCH (09:17)
[2018-12-15] MEDS: CETIRIZINE 10 MG TABLET PO SCH (09:19)
[2018-12-15] MEDS: FOLIC ACID 1 MG TABLET PO SCH (09:19)
[2018-12-15] MEDS: ASPIRIN 81 MG TABLET, ENT COATED PO SCH (09:20)
[2018-12-15] MEDS: CEFTRIAXONE 1 GM/D5W RTU 1 GM/50 ML RTUPB IV SCH (09:20)
[2018-12-15] MEDS ORDERED: POTASSIUM CHLORIDE 20 MEQ PACKET PO SCH (10:00)
[2018-12-15] MEDS ORDERED: (PENDING PHARMACY ID) (Megestrol Acetate [Megestrol Acetate] 400 MG) PO SCH (10:00)
--- NOTE | 2018-12-15 11:39 | PDOC PROGRESS REPORT ---
Subjective Progress Note for:: 12/15/18 Subjective:: GILMA WILDER is a 83 year old female recently diagnosed with a right hilar lung cancer and had a bronchoscopy last in [place] and just got the pathology results back confirming that it was cancer and has follow-up scheduled in [address] Zimmerman, but woke up this morning with worsening shortness of breath. She is not on oxygen at home but her daughter says that her SPO2 is usually 90 to 94%, and when the home health nurse came to see her today it was in the 80s. She has not been running any fever and she does not have any cough. In the ER she was noted to have evidence of what looks like a possible postobstructive pneumonia on the right side and low potassium. She is being admitted for further evaluation and management. She said she quit smoking 10 years ago but smoked for a very long time prior to that. She says she does not take any medications for COPD at home but she does have an albuterol inhaler. Her medication list that we have shows her being on Advair and Spiriva. 12/14/2018. No acute events overnight. Patient comfortably resting in bed, and 2 L nasal cannula saturating WNL, denies history of COPD, does not use oxygen at home, denies any fever, chills, nausea, vomiting, diarrhea, constipation or any urinary symptoms. She would like to be discharged home upon discharge. She is stating that she is living by herself. 12/15/2018. No acute overnight. Patient comfortably resting in bed both of daughters are present in room. They are concerned about her mother's nutritional status. Dietitian was consulted. They are very happy with the dietary consult. Stating that patient is suffering from low appetite for the last 6 months. She has been on mirtazapine and Megace however no effect. Patient denies any fever, chills, nausea, vomiting, diarrhea, constipation or any urinary symptoms. Had one bowel movement today. Still dependent on supplemental oxygen. Reason For Visit: ACUTE HYPOXIC RESPIRATORY FAILURE, AECOPD, POST Physical Exam Vital Signs: Temp Pulse Resp BP Pulse Ox 97.9 F 121 H 14 157/76 H 98 12/15/18 07:26 12/15/18 07:26 12/15/18 07:26 12/15/18 07:26 12/15/18 07:26 Intake & Output 12/14/18 12/15/18 12/16/18 06:59 06:59 06:59 Intake Total 1140 1770 Balance 1140 1770 Weight 38 kg 37.9 kg General appearance: PRESENT: no acute distress, thin Head exam: PRESENT: atraumatic, normocephalic Respiratory exam: PRESENT: clear to auscultation shayy. ABSENT: rales, rhonchi, wheezes Cardiovascular exam: PRESENT: RRR. ABSENT: diastolic murmur, rubs, systolic murmur GI/Abdominal exam: PRESENT: normal bowel sounds, soft. ABSENT: distended, guarding, mass, organolmegaly, rebound, tenderness Neurological exam: PRESENT: alert, awake, oriented to person, oriented to place, oriented to time, oriented to situation, CN II-XII grossly intact. ABSENT: motor sensory deficit Results Laboratory Results: 12/15/18 05:35 12/15/18 05:35 12/15/18 12/15/18 05:35 05:35 WBC 8.8 RBC 5.23 Hgb 15.8 H Hct 45.9 MCV 88 MCH 30.2 MCHC 34.4 RDW 15.1 H Plt Count 304 Sodium 142.5 Potassium 3.1 L Chloride 101 Carbon Dioxide 33 H Anion Gap 9 BUN 12 Creatinine 0.64 Est GFR ( Amer) > 60 Glucose 117 H Calcium 9.6 Magnesium 2.5 H 12/12/18 12/12/18 10:30 10:30 Creatine Kinase 27 L CK-MB (CK-2) 0.99 Troponin I 0.030 Impressions: Chest X-Ray 12/12/18 10:13 IMPRESSION: Right hilar mass with probable postobstructive pneumonia. Small right pleural effusion. Assessment and Plan - Diagnosis (1) COPD with acute exacerbation Is this a current diagnosis for this admission?: Yes Plan: Improving. SPO2 WNL on 2 L nasal cannula. Not on home O2. Day 3 IV antibiotics. Day 3 IV steroids. Continue other days of IV antibiotics and steroids. Evaluate for possible discharge when supplemental oxygen. 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 Newly diagnosed. Oncology on board. Patient has an appointment with Dr. Zimmerman on Monday. Patient lives at home alone however cared for by 12 her daughters who take turn visiting her. Outpatient oncology follow-up. (4) Pneumonia Qualifiers: Pneumonia type: due to unspecified organism Laterality: right Lung location: middle lobe of lung Is this a current diagnosis for this admission?: Yes Plan: As per #1. Cultures negative. (5) Protein-calorie malnutrition, moderate Is this a current diagnosis for this admission?: Yes Plan: Multifactorial. Could be related to underlying malignancy. Patient takes mirtazapine and Megace at home. Patient endorsing low appetite. Dietitian consulted. Family very happy about the discussion they had with dietitian. Outpatient PCP follow-up.
[2018-12-15] MEDS: AZITHROMYCIN 500 MG in DEXTROSE 5%-WATER 250 ML IV SCH (11:45)
[2018-12-15] MEDS: ONDANSETRON HCL 8 MG TABLET PO PRN ×2 (11:48→23:48)
[2018-12-15] MEDS: MAGNESIUM OXIDE 400 MG TABLET PO SCH (13:01)
[2018-12-15] MEDS: ACETAMINOPHEN 325 MG TABLET PO PRN (13:01)
[2018-12-15] MEDS: ATORVASTATIN CALCIUM 10 MG TABLET PO SCH (21:27)
[2018-12-15] MEDS: ROPINIROLE HCL 1 MG TABLET PO SCH (21:27)
[2018-12-15] MEDS: DONEPEZIL HCL 5 MG TABLET PO SCH (21:29)
[2018-12-15] MEDS: MIRTAZAPINE 15 MG TABLET PO SCH (21:29)
[2018-12-16] MEDS: ACETAMINOPHEN 325 MG TABLET PO PRN (01:44)
[2018-12-16] MEDS: HEPARIN SOD (PORCINE) 5,000 UNIT/ML 1 ML VIAL SUBCUT SCH ×2 (05:05→14:53)
[2018-12-16 05:43] LABS: ABSOLUTE LYMPHOCYTES (AUTO) 1.2 10^3/uL (0.5-4.7); ABSOLUTE MONOCYTES (AUTO) 0.8 10^3/uL (0.1-1.4); ABSOLUTE NEUT (AUTO) 7.1 10^3/uL (1.7-8.2); BASOPHILS % (AUTO) 0.2 % (0-2); EOSINOPHILS % (AUTO) 0.1 % (0-6); HEMATOCRIT 43.3 % (36.0-47.0); HEMOGLOBIN 14.6 g/dL (12.0-15.5); LYMPHOCYTES % (AUTO) 13.2 % (13-45); MEAN CORPUSCULAR HEMOGLOBIN 29.9 pg (27.0-33.4); MEAN CORPUSCULAR HGB CONC 33.8 g/dL (32.0-36.0); MEAN CORPUSCULAR VOLUME 89 fl (80-97); MONOCYTES % (AUTO) 8.6 % (3-13); PLATELET COUNT 268 10^3/uL (150-450); RED BLOOD COUNT 4.89 10^6/uL (3.72-5.28); RED CELL DISTRIBUTION WIDTH 15.4 % (11.5-14.0); SEGMENTED NEUTROPHILS % (AUTO) 77.9 % (42-78); TOTAL CELLS COUNTED % (AUTO) 100 %; WHITE BLOOD COUNT 9.1 10^3/uL (4.0-10.5)
[2018-12-16 06:07] LABS: ANION GAP 5 (5-19); BLOOD UREA NITROGEN 16 mg/dL (7-20); CALCIUM 9.6 mg/dL (8.4-10.2); CARBON DIOXIDE 33 mmol/L (22-30); CHLORIDE 101 mmol/L (98-107); GLUCOSE 109 mg/dL (75-110)
[2018-12-16] MEDS: CETIRIZINE 10 MG TABLET PO SCH (08:41)
[2018-12-16] MEDS: CEFTRIAXONE 1 GM/D5W RTU 1 GM/50 ML RTUPB IV SCH (10:35)
[2018-12-16] MEDS: PREDNISONE 20 MG TABLET PO SCH (10:35)
[2018-12-16] MEDS: AZITHROMYCIN 500 MG in DEXTROSE 5%-WATER 250 ML IV SCH (10:35)
[2018-12-16] MEDS: ASPIRIN 81 MG TABLET, ENT COATED PO SCH (10:35)
[2018-12-16] MEDS: FOLIC ACID 1 MG TABLET PO SCH (10:35)
[2018-12-16] MEDS: MAGNESIUM OXIDE 400 MG TABLET PO SCH (10:35)
[2018-12-16] MEDS: MEGESTROL ACETATE SUSP 400 MG/10 ML UDCUP PO SCH (10:36)
[2018-12-16] MEDS: POTASSIUM CHLORIDE 20 MEQ PACKET PO SCH (10:36)
[2018-12-16] MEDS: METOPROLOL TARTRATE 25 MG TABLET PO SCH (10:36)
--- NOTE | 2018-12-16 15:01 | PDOC DISCHARGE SUMMARY ---
Impression - Admit/DC Date/PCP Admission Date/Primary Care Provider: 12/12/18 13:39 BRITTNEE GIBBS PA-C Discharge Date: 12/16/18 - Discharge Diagnosis (1) COPD with acute exacerbation Is this a current diagnosis for this admission?: Yes (2) Hypokalemia Is this a current diagnosis for this admission?: Yes (3) Lung cancer Is this a current diagnosis for this admission?: Yes (4) Pneumonia Is this a current diagnosis for this admission?: Yes (5) Protein-calorie malnutrition, moderate Is this a current diagnosis for this admission?: Yes - Additional Information Resuscitation Status: Do Not Resuscitate Discharge Diet: As Tolerated Discharge Activity: Balance Activity w/Rest, Supervised Activity Referrals: BRITTNEE GIBBS PA-C [Primary Care Provider] - Follow up as needed Prescriptions: Azithromycin 500 mg PO DAILY #1 tablet Prednisone [Deltasone 20 mg Tablet] 40 mg PO DAILY #6 tablet Home Medications: Acetaminophen [Tylenol 325 mg Tablet] 325 mg PO Q12HP PRN 12/12/18 Aspirin [Ecotrin 81 mg EC Tablet] 81 mg PO DAILY 12/12/18 Cetirizine HCl [Zyrtec 10 mg Tablet] 10 mg PO QAM 12/12/18 Donepezil HCl [Aricept] 10 mg PO QHS 12/12/18 Folic Acid [Folvite 1 mg Tablet] 1 mg PO DAILY 12/12/18 Magnesium Oxide [Mag-Ox 400 mg Tablet] 400 mg PO DAILY 12/12/18 Megestrol Acetate 400 mg PO DAILY 12/12/18 Mirtazapine [Remeron 15 mg Tablet] 15 mg PO QHS 12/12/18 Multivitamin [Tab-A-Yared (Multiple Vitamin) Tablet] 1 tab PO DAILY 12/12/18 Ondansetron HCl [Zofran 4 mg Tablet] 4 mg PO Q8HP PRN 12/12/18 Pravastatin Sodium [Pravachol] 20 mg PO QHS 12/12/18 Ropinirole HCl [Requip] 0.5 mg PO QHS 12/12/18 Azithromycin 500 mg PO DAILY #1 tablet 12/16/18 Prednisone [Deltasone 20 mg Tablet] 40 mg PO DAILY #6 tablet 12/16/18 History of Present Illiness History of Present Illness: GILMA WILDER is a 83 year old female recently diagnosed with a right hilar lung cancer and had a bronchoscopy last in [place] and just got the pathology results back confirming that it was cancer and has follow-up scheduled in [address] Zimmerman, but woke up this morning with worsening shortness of breath. She is not on oxygen at home but her daughter says that her SPO2 is usually 90 to 94%, and when the home health nurse came to see her today it was in the 80s. She has not been running any fever and she does not have any cough. In the ER she was noted to have evidence of what looks like a possible postobstructive pneumonia on the right side and low potassium. She is being admitted for further evaluation and management. She said she quit smoking 10 years ago but smoked for a very long time prior to that. She says she does not take any medications for COPD at home but she does have an albuterol inhaler. Her medication list that we have shows her being on Advair and Spiriva. Hospital Course Hospital Course: She has had a slow recovery complicated by the fact that she has not really eaten much of anything. She had a good meal her first night here and since then she has not really eaten much of anything. She has slept a lot but her breathing is little bit more comfortable. She qualified for home oxygen and the appropriate arrangements were made. She is going to finish a few more days of some prednisone at home and another day or 2 of some antibiotics. She will continue on her other home medications. She was discharged with her daughter in stable condition. Physical Exam Vital Signs: Temp Pulse Resp BP Pulse Ox 97.8 F 95 20 165/77 H 98 12/16/18 11:01 12/16/18 11:01 12/16/18 11:01 12/16/18 11:01 12/16/18 11:01 Intake & Output 12/15/18 12/16/18 12/17/18 06:59 06:59 06:59 Intake Total 1770 1122 237 Balance 1770 1122 237 Weight 37.9 kg 37.6 kg General appearance: PRESENT: cooperative, disheveled, mild distress, thin Respiratory exam: PRESENT: Diminished breath sounds, prolonged expiratory phase. ABSENT: accessory muscle use, chest wall tenderness, crackles, rhonchi, symmetrical, tachypnea, unlabored Cardiovascular exam: PRESENT: RRR, +S1, +S2 Pulses: PRESENT: normal carotid pulses Vascular exam: PRESENT: normal capillary refill GI/Abdominal exam: PRESENT: normal bowel sounds, soft. ABSENT: distended, guarding, rebound, tenderness Extremities exam: ABSENT: clubbing, pedal edema Musculoskeletal exam: PRESENT: normal inspection. ABSENT: deformity Neurological exam: PRESENT: alert, awake, oriented to person, oriented to place Psychiatric exam: PRESENT: flat affect Skin exam: PRESENT: dry, warm Results Laboratory Results: WBC 9.1 10^3/uL (4.0-10.5) 12/16/18 04:52 RBC 4.89 10^6/uL (3.72-5.28) 12/16/18 04:52 Hgb 14.6 g/dL (12.0-15.5) 12/16/18 04:52 Hct 43.3 % (36.0-47.0) 12/16/18 04:52 MCV 89 fl (80-97) 12/16/18 04:52 MCH 29.9 pg (27.0-33.4) 12/16/18 04:52 MCHC 33.8 g/dL (32.0-36.0) 12/16/18 04:52 RDW 15.4 % (11.5-14.0) H 12/16/18 04:52 Plt Count 268 10^3/uL (150-450) 12/16/18 04:52 Lymph % (Auto) 13.2 % (13-45) 12/16/18 04:52 [place] % (Auto) 8.6 % (3-13) 12/16/18 04:52 Eos % (Auto) 0.1 % (0-6) 12/16/18 04:52 Baso % (Auto) 0.2 % (0-2) 12/16/18 04:52 Absolute Neuts (auto) 7.1 10^3/uL (1.7-8.2) 12/16/18 04:52 Absolute Lymphs (auto) 1.2 10^3/uL (0.5-4.7) 12/16/18 04:52 Absolute Monos (auto) 0.8 10^3/uL (0.1-1.4) 12/16/18 04:52 Absolute Eos (auto) 0.0 10^3/uL (0.0-0.6) 12/16/18 04:52 Absolute Basos (auto) 0.0 10^3/uL (0.0-0.2) 12/16/18 04:52 Seg Neutrophils % 77.9 % (42-78) 12/16/18 04:52 Sodium 138.5 mmol/L (137-145) 12/16/18 04:52 Potassium 4.0 mmol/L (3.6-5.0) 12/16/18 04:52 Chloride 101 mmol/L (98-107) 12/16/18 04:52 Carbon Dioxide 33 mmol/L (22-30) H 12/16/18 04:52 Anion Gap 5 (5-19) 12/16/18 04:52 BUN 16 mg/dL (7-20) 12/16/18 04:52 Creatinine 0.58 mg/dL (0.52-1.25) 12/16/18 04:52 Est GFR ( Amer) > 60 (>60) 12/16/18 04:52 Est GFR (MDRD) Non-Af > 60 (>60) 12/16/18 04:52 Glucose 109 mg/dL (75-110) 12/16/18 04:52 POC Glucose 108 mg/dL (70-110) 12/16/18 00:08 Calcium 9.6 mg/dL (8.4-10.2) 12/16/18 04:52 Magnesium 2.3 mg/dL (1.6-2.3) 12/16/18 04:52 Total Bilirubin 0.6 mg/dL (0.2-1.3) 12/12/18 10:30 Direct Bilirubin 0.2 mg/dL (0.0-0.4) 12/12/18 10:30 Neonat Total Bilirubin Not Reportable 12/12/18 10:30 Neonat Direct Bilirubin Not Reportable 12/12/18 10:30 Neonat Indirect Bili Not Reportable 12/12/18 10:30 AST 32 U/L (14-36) 12/12/18 10:30 ALT 18 U/L (<35) 12/12/18 10:30 Alkaline Phosphatase 56 U/L (38-126) 12/12/18 10:30 Creatine Kinase 27 U/L (30-135) L 12/12/18 10:30 CK-MB (CK-2) 0.99 ng/mL (<4.55) 12/12/18 10:30 Troponin I 0.030 ng/mL 12/12/18 10:30 Total Protein 5.9 g/dL (6.3-8.2) L 12/12/18 10:30 Albumin 3.4 g/dL (3.5-5.0) L 12/12/18 10:30 Urine Color UNA 12/12/18 13:31 Urine Appearance CLOUDY 12/12/18 13:31 Urine pH 8.0 (5.0-9.0) 12/12/18 13:31 Ur Specific [place] 1.025 12/12/18 13:31 Urine Protein 100 mg/dL (NEGATIVE) H 12/12/18 13:31 Urine Glucose (UA) NEGATIVE mg/dL (NEGATIVE) 12/12/18 13:31 Urine Ketones 20 mg/dL (NEGATIVE) H 12/12/18 13:31 Urine Blood NEGATIVE (NEGATIVE) 12/12/18 13:31 Urine Nitrite NEGATIVE (NEGATIVE) 12/12/18 13:31 Urine Bilirubin NEGATIVE (NEGATIVE) 12/12/18 13:31 Urine Urobilinogen NEGATIVE mg/dL (<2.0) 12/12/18 13:31 Ur Leukocyte Esterase NEGATIVE (NEGATIVE) 12/12/18 13:31 Urine WBC (Auto) 5 /HPF 12/12/18 13:31 Urine RBC (Auto) 1 /HPF 12/12/18 13:31 Urine Bacteria (Auto) 1+ /HPF 12/12/18 13:31 Calcium Oxalate Cr Auto MODERATE /HPF 12/12/18 13:31 Amorphous Sediment Auto TRACE /HPF 12/12/18 13:31 Urine Mucus (Auto) FEW /LPF 12/12/18 13:31 Urine Ascorbic Acid NEGATIVE (NEGATIVE) 12/12/18 13:31 12/12/18 10:30 CK-MB (CK-2) 0.99 Troponin I 0.030 Impressions: Chest X-Ray 12/12/18 10:13 IMPRESSION: Right hilar mass with probable postobstructive pneumonia. Small right pleural effusion. Plan Time Spent: Greater than 30 Minutes Stroke Is this a Stroke Patient?: No Acute Heart Failure - Is this a Heart Failure Patient?: No
[2018-12-16 15:35] VITALS: BP 136/62
== END 2018-12-16 15:49 | disposition home health service (06) | DRG 190 ==
LOC: ER 10:08 → EH 13:39 → 4N 15:48
PROVIDERS: ADMIT Family Medicine; ATTEND Family Medicine
DX: J43.9 Emphysema, unspecified (principal); J18.9 Pneumonia, unspecified organism; C34.01 Malignant neoplasm of right main bronchus; E44.0 Moderate protein-calorie malnutrition; Z68.1 Body mass index [BMI] 19.9 or less, adult; J96.11 Chronic respiratory failure with hypoxia; E86.0 Dehydration; E87.6 Hypokalemia; I25.10 Atherosclerotic heart disease of native coronary artery without angina pectoris; Z66 Do not resuscitate; I10 Essential (primary) hypertension; M19.90 Unspecified osteoarthritis, unspecified site; D64.9 Anemia, unspecified; F32.9 Major depressive disorder, single episode, unspecified; Z79.51 Long term (current) use of inhaled steroids; Z87.891 Personal history of nicotine dependence; Z90.49 Acquired absence of other specified parts of digestive tract; Z90.710 Acquired absence of both cervix and uterus; Z79.899 Other long term (current) drug therapy; Z79.82 Long term (current) use of aspirin; Z91.040 Latex allergy status; Z88.0 Allergy status to penicillin; Z91.09 Other allergy status, other than to drugs and biological substances; Z98.890 Other specified postprocedural states
CPT/HCPCS: 36415; 71045; 80048; 80053; 81001; 82550; 82553; 82962; 83735; 84484; 85025; 85027; 87040; 93005; 93010; 94640; 96374; 96375; 99285; J0360; J0456; J0696; J1644; J2405; J3480; J3490; J7060; J7512; J7620; S0119

== ENCOUNTER 2018-12-27 17:04 | Inpatient (IN) | payer MEDICARE, OTHER ==
[2018-12-27] MEDS ORDERED: NORMAL SALINE 1000 ML 1,000 ML IV ONE (17:26)
[2018-12-27] MEDS ORDERED: ONDANSETRON HCL INJ/PF 4 MG/2 ML SDV IV ONE (17:26)
--- NOTE | 2018-12-27 17:38 | ER Document Report ---
ED Medical Screen (RME) - General TRAVEL OUTSIDE OF THE [place] IN LAST 30 DAYS: No <DANIELA EUBANKS - Last Filed: 12/27/18 17:32> <ALON MARTINS - Last Filed: 12/27/18 19:19> - General Chief Complaint: Nausea/Vomiting Stated Complaint: NAUSEA, VOMITING Time Seen by Provider: 12/27/18 17:19 Primary Care Provider: LANE LAU MD [ACTIVE STAFF] - Follow up as needed - Related Data Allergies/Adverse Reactions: gentamicin [Gentamicin] Allergy (Mild, Verified 12/27/18 17:21) UNK latex [Latex] Allergy (Mild, Verified 12/27/18 17:21) RASH metronidazole [From Flagyl] Allergy (Mild, Verified 12/27/18 17:21) Nausea Metronidazole HCl [From Flagyl] Allergy (Mild, Verified 12/27/18 17:21) Nausea Penicillins Allergy (Mild, Verified 12/27/18 17:21) THROAT SWELLS Past Medical History - Social History Chew tobacco use (# tins/day): No Frequency of alcohol use: None Drug Abuse: None - Past Medical History Cardiac Medical History: Reports: Hx Coronary Artery Disease, Hx Hypertension Denies: Hx Heart Attack Pulmonary Medical History: Reports: Hx Asthma, Hx COPD Denies: Hx Bronchitis, Hx Pneumonia Neurological Medical History: Denies: Hx Cerebrovascular Accident, Hx Seizures Renal/ Medical History: Denies: Hx Peritoneal Dialysis GI Medical History: Denies: Hx Hepatitis, Hx Hiatal Hernia, Hx Ulcer Musculoskeltal Medical History: Reports Hx Arthritis Psychiatric Medical History: Reports: Hx Depression Infectious Medical History: Denies: Hx Hepatitis Past Surgical History: Reports: Hx Abdominal Surgery - colon resection, Hx Appendectomy, Hx Hysterectomy. Denies: Hx Mastectomy, Hx Open Heart Surgery, Hx Pacemaker - Immunizations Hx Diphtheria, Pertussis, Tetanus Vaccination: No - UNSURE <DANIELA EUBANKS - Last Filed: 12/27/18 17:32> Physical Exam - Vital signs Vitals: Temp Pulse Resp BP Pulse Ox 97.8 F 89 32 H 107/64 92 12/27/18 17:14 12/27/18 17:14 12/27/18 17:14 12/27/18 17:14 12/27/18 17:14 Course - Laboratory Result Diagrams: 12/27/18 17:54 12/27/18 17:54 <ALON MARTINS - Last Filed: 12/27/18 19:19> - Re-evaluation Re-evalutation: 12/27/18 19:[address] Pettit. Feels patient (ALON MARTINS) - Vital Signs Vital signs: Temp Pulse Resp BP Pulse Ox 97.8 F 89 32 H 107/64 92 12/27/18 17:14 12/27/18 17:14 12/27/18 17:14 12/27/18 17:14 12/27/18 17:14 - Laboratory Laboratory results interpreted by me: 12/27/18 12/27/18 17:54 17:54 WBC 17.6 H RDW 14.7 H Seg Neuts % (Manual) 96 H Band Neutrophils % 2 L Lymphocytes % (Manual) 1 L Monocytes % (Manual) 1 L Abs Neuts (Manual) 17.2 H Abs Lymphs (Manual) 0.2 L Potassium 2.7 L* Carbon Dioxide 32 H Glucose 141 H Total Protein 5.9 L Doctor's Discharge <DANIELA EUBANKS - Last Filed: 12/27/18 17:32> <ALON MARTINS - Last Filed: 12/27/18 19:19> - Discharge Referrals: LANE LAU MD [ACTIVE STAFF] - Follow up as needed
[2018-12-27] MEDS ORDERED: VANCOMYCIN HCL INJ 1000 MG VIAL IV ONE (18:20)
[2018-12-27] MEDS ORDERED: CEFTAZIDIME INJ 1 GM VIAL IV ONE (18:21)
[2018-12-27 18:24] LABS: HEMOGLOBIN 14.4 g/dL (12.0-15.5); MEAN CORPUSCULAR HEMOGLOBIN 29.8 pg (27.0-33.4); MEAN CORPUSCULAR HGB CONC 33.5 g/dL (32.0-36.0); MEAN CORPUSCULAR VOLUME 89 fl (80-97); PLATELET COUNT 184 10^3/uL (150-450); RED BLOOD COUNT 4.82 10^6/uL (3.72-5.28); RED CELL DISTRIBUTION WIDTH 14.7 % (11.5-14.0); WHITE BLOOD COUNT 17.6 10^3/uL (4.0-10.5)
[2018-12-27 18:43] LABS: ABSOLUTE LYMPHOCYTES# (MANUAL) 0.2 10^3/uL (0.5-4.7); ABSOLUTE MONOCYTES # (MANUAL) 0.2 10^3/uL (0.1-1.4); ANISOCYTOSIS SLIGHT; BAND NEUTROPHILS % (MANUAL) 2 % (3-5); BASOPHILS % (MANUAL) 0 % (0-2); EOSINOPHILS % (MANUAL) 0 % (0-6); LYMPHOCYTES % (MANUAL) 1 % (13-45); MONOCYTES % (MANUAL) 1 % (3-13); OVALOCYTES 1+; PLATELET COMMENT ADEQUATE; SEGMENTED NEUTROPHILS % (MAN) 96 % (42-78); TOTAL CELLS COUNTED 100
[2018-12-27 18:44] LABS: ALBUMIN 3.6 g/dL (3.5-5.0); ALKALINE PHOSPHATASE 75 U/L (38-126); ANION GAP 14 (5-19); ASPARTATE AMINO TRANSFERASE 31 U/L (14-36); BILIRUBIN,DIRECT 0.3 mg/dL (0.0-0.4); BILIRUBIN,TOTAL 1.2 mg/dL (0.2-1.3); BLOOD UREA NITROGEN 18 mg/dL (7-20); CALCIUM 9.4 mg/dL (8.4-10.2); CARBON DIOXIDE 32 mmol/L (22-30); CHLORIDE 98 mmol/L (98-107); GLUCOSE 141 mg/dL (75-110); TOTAL PROTEIN 5.9 g/dL (6.3-8.2)
[2018-12-27 18:48] LABS: POTASSIUM 2.7 mmol/L (3.6-5.0)
[2018-12-27] MEDS ORDERED: POTASSIUM CHLORIDE 20 MEQ PACKET PO ONE (19:10)
[2018-12-27] MEDS ORDERED: KETOROLAC TROMETHAMINE INJ/PF 30 MG/1 ML SDV IV ONE (19:10)
--- NOTE | 2018-12-27 20:23 | RADIOLOGY REPORT (SQ) ---
EXAM DESCRIPTION: [facility]: XR CHEST 1 VIEW CLINICAL HISTORY: 83 years Female, concern for sepsis COMPARISON: 12/12/2018, CT 11/14/2018 FINDINGS: Lungs are hyperinflated as on prior exam. Right hilar enlargement corresponds to right hilar mass seen on previous CT 11/14/2018. There is also interstitial infiltrate in the perihilar region and right lower lobe. No pneumothorax or pleural effusion. Aortic calcifications are again noted. Heart size is within normal limits. Bony structures are unremarkable. IMPRESSION: 1. Right hilar mass with associated infiltrate, likely pneumonia. The infiltrate has only slightly improved since 12/12/2018. 2. No pneumothorax or pleural effusion.
--- NOTE | 2018-12-27 20:28 | ER Document Report ---
ED General - General Chief Complaint: Nausea/Vomiting Stated Complaint: NAUSEA, VOMITING Time Seen by Provider: 12/27/18 17:19 Notes: Nazia Collado is a 83-year-old female with recent diagnosis of lung cancer presenting to the ED for cough, back pain and fevers and chills. Daughter states that he has had significant weight loss over the past month. They were just evaluated earlier this week by Dr. Pettit. Patient's daughter endorses nausea and vomiting. However she denies any significant abdominal tenderness. Endorses subjective fevers and chills. She states her cough is intermittently productive. Daughter states that she has been unable to eat much food or keep down much p.o. over the past 4 weeks. Patient was made DNR last week. TRAVEL OUTSIDE OF THE [place] IN LAST 30 DAYS: No - Related Data Allergies/Adverse Reactions: gentamicin [Gentamicin] Allergy (Mild, Verified 12/27/18 17:21) UNK latex [Latex] Allergy (Mild, Verified 12/27/18 17:21) RASH metronidazole [From Flagyl] Allergy (Mild, Verified 12/27/18 17:21) Nausea Metronidazole HCl [From Flagyl] Allergy (Mild, Verified 12/27/18 17:21) Nausea Penicillins Allergy (Mild, Verified 12/27/18 17:21) THROAT SWELLS Past Medical History - Social History Smoking Status: Former Smoker Chew tobacco use (# tins/day): No Frequency of alcohol use: None Drug Abuse: None Family History: Reviewed & Not Pertinent Patient has suicidal ideation: No Patient has homicidal ideation: No - Past Medical History Cardiac Medical History: Reports: Hx Coronary Artery Disease, Hx Hypertension Denies: Hx Heart Attack Pulmonary Medical History: Reports: Hx Asthma, Hx COPD Denies: Hx Bronchitis, Hx Pneumonia Neurological Medical History: Denies: Hx Cerebrovascular Accident, Hx Seizures Renal/ Medical History: Denies: Hx Peritoneal Dialysis GI Medical History: Denies: Hx Hepatitis, Hx Hiatal Hernia, Hx Ulcer Musculoskeletal Medical History: Reports Hx Arthritis Psychiatric Medical History: Reports: Hx Depression Infectious Medical History: Denies: Hx Hepatitis Past Surgical History: Reports: Hx Abdominal Surgery - colon resection, Hx Appendectomy, Hx Hysterectomy. Denies: Hx Mastectomy, Hx Open Heart Surgery, Hx Pacemaker - Immunizations Hx Diphtheria, Pertussis, Tetanus Vaccination: No - UNSURE Hx Pneumococcal Vaccination: 10/07/18 Review of Systems - Review of Systems Constitutional: See HPI EENT: No symptoms reported Cardiovascular: No symptoms reported Respiratory: See HPI Gastrointestinal: See HPI Genitourinary: No symptoms reported Female Genitourinary: No symptoms reported Musculoskeletal: No symptoms reported Skin: No symptoms reported Hematologic/Lymphatic: No symptoms reported Neurological/Psychological: No symptoms reported Physical Exam - Vital signs Vitals: Temp Pulse Resp BP Pulse Ox 97.8 F 89 32 H 107/64 92 12/27/18 17:14 12/27/18 17:14 12/27/18 17:14 12/27/18 17:14 12/27/18 17:14 Interpretation: Tachypneic - Notes Notes: Cachectic - General General appearance: Alert In distress: Mild - HEENT Head: Normocephalic, Atraumatic Eyes: Normal Pupils: PERRL Mucous membranes: Dry - Respiratory Respiratory status: No respiratory distress Chest status: Nontender Breath sounds: Nonproductive cough, Rales Chest palpation: Normal - Cardiovascular Rhythm: Regular Heart sounds: Normal auscultation Murmur: No - Abdominal Inspection: Normal Distension: No distension Bowel sounds: Normal Tenderness: Nontender Organomegaly: No organomegaly - Back Back: Normal, Nontender - Extremities General upper extremity: Normal inspection, Nontender, Normal color, Normal ROM, Normal temperature General lower extremity: Normal inspection, Nontender, Normal color, Normal ROM, Normal temperature, Normal weight bearing. No: Teagan's sign - Neurological Neuro grossly intact: Yes Cognition: Normal Orientation: AAOx4 Kris Coma Scale Eye Opening: Spontaneous [place] Coma Scale Verbal: Oriented Kris Coma Scale Motor: Obeys Commands Kris Coma Scale Total: 15 Speech: Normal Motor strength normal: LUE, RUE, LLE, RLE Sensory: Normal - Psychological Associated symptoms: Normal affect, Normal mood - Skin Skin Temperature: Warm Skin Moisture: Dry Skin Color: Normal Course - Re-evaluation Re-evalutation: Patient is chronically ill-appearing but nontoxic. Initial vitals notable for significant tachypnea. Differential diagnosis includes sepsis, postobstructive pneumonia, pulmonary embolism Notable for significant leukocytosis and left shift with a mild bandemia. Lactic acidosis is elevated. Patient's potassium is low at 2.7. Will order p.o. potassium solution for repletion. Upon evaluation, the patient was ordered for broad-spectrum antibiotics in addition to IV fluids given her evidence of dehydration as well as concern for pneumonia. Chest x-ray shows evidence of a postobstructive pneumonia. 12/27/18 19:[address] Pettit. 12/27/18 20:28 Admitted to [facility] admission. No obvious evidence of PE on CT. Abdomen shows evidence of metastatic disease to the liver and likely lungs. There is also concern the significant lymphadenopathy in the chest is causing partial obstruction of the esophagus as it is narrowed in the mid third. Patient will be admitted for further care however she is already DNR. Likely will continue getting IV antibiotics and IV fluids that should be made comfort care. - Vital Signs Vital signs: Temp Pulse Resp BP Pulse Ox 97.7 F 81 32 H 133/49 H 94 12/27/18 22:57 12/27/18 22:57 12/27/18 17:14 12/27/18 22:57 12/27/18 22:57 - Laboratory Result Diagrams: 12/27/18 17:54 12/27/18 17:54 Laboratory results interpreted by me: 12/27/18 12/27/18 12/27/18 17:54 17:54 17:54 WBC 17.6 H RDW 14.7 H Seg Neuts % (Manual) 96 H Band Neutrophils % 2 L Lymphocytes % (Manual) 1 L Monocytes % (Manual) 1 L Abs Neuts (Manual) 17.2 H Abs Lymphs (Manual) 0.2 L Potassium 2.7 L* Carbon Dioxide 32 H Glucose 141 H Lactic Acid (Sepsis) 2.7 H Magnesium Total Protein 5.9 L 12/27/18 17:54 WBC RDW Seg Neuts % (Manual) Band Neutrophils % Lymphocytes % (Manual) Monocytes % (Manual) Abs Neuts (Manual) Abs Lymphs (Manual) Potassium Carbon Dioxide Glucose Lactic Acid (Sepsis) Magnesium 2.5 H Total Protein Critical Care Note - Critical Care Note Total time excluding time spent on procedures (mins): 30 - Multiple reevaluation, discussion with center consultant oncologist, sepsis Discharge - Discharge Clinical Impression: Hilar mass, Pneumonia, Sepsis, Hypokalemia Condition: Fair Disposition: ADMITTED INPATIENT Admitting Provider: Venkat (Hospitalist) Unit Admitted: [facility]
[2018-12-27] MEDS ORDERED: IPRATROPIUM/ALBUTEROL 0.5-2.5 MG/3 ML AMPUL NEB PRN (20:55)
[2018-12-27] MEDS ORDERED: ACETAMINOPHEN 325 MG TABLET PO PRN (20:55)
[2018-12-27] MEDS ORDERED: VANCOMYCIN HCL 0 MG in DEXTROSE 5%-WATER 250 ML IV NR (21:00)
--- NOTE | 2018-12-27 21:44 | RADIOLOGY REPORT (SQ) ---
EXAM DESCRIPTION: CT CHEST ANGIOGRAPHY WITHOUT THEN WITH IV CONTRAST, CT ABDOMEN PELVIS WITH IV CONTRAST COMPLETED DATE/TME: 12/27/2018 17:27 (accession [id number]), 12/27/2018 17:24 (accession [id number]) CLINICAL HISTORY: 83 years, Female, SOB, hypoxic on oxygen; abdominal pain; history of malignancy. COMPARISON: Prior study from 11/14/2018 TECHNIQUE: Contrast enhanced CT of the chest, abdomen, and pelvis was performed. Images were obtained of the uneventful administration of 100 mL of Omnipaque 350 intravenous contrast. Oblique MIPS were created and submitted for review. Images stored on PACS. All CT scanners at this facility use dose modulation, iterative reconstruction, and/or weight based dosing when appropriate to reduce radiation dose to as low as reasonably achievable (ALARA). [facility]: Dose Right [facility]: CareDose [facility]: Dose Right [facility]: Teradose 4D [facility]: [employer] LIMITATIONS: None. FINDINGS: Assessment of the central airways reveals focal occlusion of a right lower lobe superior subsegmental airway, best visualized on image 61 of series 4. Lung windows show a masslike area of consolidation located about the right perihilar region which appears to circumferentially encase and narrow the right lower lobe pulmonary artery as well as encase and narrow the right lower lobe and middle lobe airways. This area of masslike consolidation is difficult to measure given its irregular configuration. The irregular masslike consolidation located about the right suprahilar region appears grossly measure 4.1 x 2.5 cm in size on image 48 of series 4, fairly similar to the previous exam dated 11/14/2018. Additional regional area of consolidation located about the right hilar region extending into the right middle and lower lobes appears increased though there is adjacent architectural distortion and groundglass opacity. Superimposed diffuse interlobular septal thickening is noted throughout the right lung. Likewise, there is a small right pleural effusion with associated right basilar consolidation, presumably atelectasis. Solid nodule within the right middle lobe on image 59 of series 4 currently measures 0.8 x 0.5 cm in size. This appears new from the previous exam. Mild upper zone predominant emphysematous changes are evident. Assessment of the left lung reveals a 0.4 cm solid nodule within the left upper lobe on image 54 series 4, similar to the prior. Additional areas of patchy consolidative/groundglass opacity are noted about the left lower lobe. Mediastinal windows show bulky mediastinal and bilateral hilar lymphadenopathy. The largest damien conglomeration is evident about the subcarinal region measuring at least 4.7 x 2.0 cm in size in image 59 of series 3. Overall, the degree of lymphadenopathy appears increased from the previous examination dated 11/14/2018. In addition, the subcarinal damien mass appears increasingly necrotic. This mass appears to circumferentially encasing likely near the mid thoracic esophagus as there is concomitant dilatation of the proximal third of the esophagus. In addition, a focus of hyperdensity is noted about the mid thoracic esophagus on image 55 of series 3, presumably corresponding to intraluminal contrast material. Superimposed supraclavicular lymphadenopathy is evident. For example, a left supraclavicular lymph node measuring 1.8 x 1.4 cm in size is evident on image 11 of series 3, previously 1.7 x 1.4 cm in size. This appears increasingly necrotic. Additional pre-existing enlarged prevascular lymph node on image 53 of series 3 currently measures 1.6 x 1.5 cm in size, compared to 1.5 x 1.0 cm in size previously. Calcifications are evident about the coronary vessels and thoracic aorta. The study is adequate for the evaluation of pulmonary emboli. While several of the pulmonary arterial vessels about the right lung are encased and narrowed by the right hilar mass, no filling defects are identified. However, there is a lobular focus of contrast enhancement located about the right infrahilar region measuring 1.7 x 1.4 cm in size on image 74 series 3. This appears to emanate from a pulmonary vein, and appears similar in configuration to the prior study dated 09/12/2012. Bone windows through the chest reveal no destructive osseous lesions. A few subcentimeter low-density lesions are noted about the liver parenchyma which are too small to accurately characterize. However, these lesions are new from the previous examination dated 06/22/2018. Spleen, pancreas, and both adrenal glands show no suspicious finding. The gallbladder is absent. Necrotic gastrohepatic lymphadenopathy is evident. One of the largest lymph nodes measures approximately 2.2 x 0.9 cm in size in image 140 of series 3. A simple cyst emanates from the interpolar region of the right kidney. Additional subcentimeter low-density lesions about both kidneys are too small to accurately characterize. Otherwise, both kidneys enhance somewhat heterogeneously. No hydronephrosis or hydroureter. Urinary bladder is collapsed, thus its evaluation is limited. Small and large bowel appear overall normal in caliber. No evidence of bowel obstruction. There are postsurgical changes of ventral hernia repair. Extensive calcifications are noted about the abdominal aorta and proximal iliac vessels. Bone windows through the abdomen/pelvis reveal no destructive osseous lesions. IMPRESSION: Chest: No evidence of pulmonary embolism. Persistent irregular right suprahilar/hilar masslike areas of consolidation with associated adjacent architectural distortion and groundglass opacity, stable to increased from the previous examination dated 11/14/2018. Differential considerations include worsening malignancy, development of adjacent infection, or postradiation change in the appropriate clinical setting. Likewise, the mass appears to circumferentially encase and narrow several of the pulmonary arterial vasculature. Concomitant solid nodules about both lungs are indeterminate. 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 This was present on the previous CT dated 09/12/2012. Increasing bulky mediastinal and bilateral hilar lymphadenopathy. The large subcarinal damien mass appears increasingly necrotic, now circumferentially encasing and likely narrowing the mid thoracic esophagus. As a result, the proximal third of the esophagus is dilated and fluid-filled, suggestive of obstruction. Superimposed hyperdensity about the mid thoracic esophagus most likely corresponds to a focus of retained intraluminal oral contrast material. Small right pleural effusion with associated right basilar atelectasis. Abdomen/pelvis: No acute abnormality within the abdomen or pelvis. Necrotic lymphadenopathy about the gastrohepatic ligament, indicative of metastatic disease. Indeterminate subcentimeter hypodense lesions throughout the liver parenchyma, raising the possibility of metastatic disease. TECHNICAL DOCUMENTATION: Quality ID # [id number]: Final reports with documentation of one or more dose reduction techniques (e.g., Automated exposure control, adjustment of the mA and/or kV according to patient size, use of iterative reconstruction technique) copyright 2011 [employer]- All Rights Reserved
[2018-12-28] MEDS: PREDNISONE 20 MG TABLET PO SCH ×3 (00:19→18:13)
[2018-12-28] MEDS: FLUTICASONE NASAL SPRAY 50 MCG/SPRY 120 SPRAY/16 GM NASL SCH ×4 (00:19→22:39)
[2018-12-28] MEDS: GUAIFENESIN 600 MG TABLET.SA PO SCH ×3 (00:20→22:41)
[2018-12-28] MEDS: KETOROLAC TROMETHAMINE INJ/PF 30 MG/1 ML SDV IV PRN ×2 (00:39→06:53)
[2018-12-28] MEDS: ONDANSETRON HCL INJ/PF 4 MG/2 ML SDV IV PRN ×4 (00:39→19:47)
[2018-12-28] MEDS: HEPARIN SOD (PORCINE) 5,000 UNIT/ML 1 ML VIAL SUBCUT SCH ×4 (00:39→22:39)
[2018-12-28] MEDS ORDERED: CEFEPIME 2 GM/D5W RTU 2 GM/50 ML RTUPB IV ONE (00:46)
[2018-12-28] MEDS: CEFEPIME 2 GM/D5W RTU 2 GM/50 ML RTUPB IV SCH ×3 (00:48→21:01)
[2018-12-28] MEDS: IPRATROPIUM/ALBUTEROL 0.5-2.5 MG/3 ML AMPUL NEB SCH ×4 (02:12→20:24)
[2018-12-28] MEDS: MORPHINE SULFATE 10 MG/ML INJ IV PRN ×4 (02:34→19:47)
--- NOTE | 2018-12-28 04:56 | PDOC H&P ---
History of Present Illness Admission Date/PCP: 12/27/18 20:37 BRITTNEE GIBBS PA-C Patient complains of: Nausea, vomiting, shortness of breath History of Present Illness: GILMA WILDER is a 83 year old female with a recent past medical history of lung cancer with postobstructive pneumonia, COPD, profound debility and cachexia. She presents with shortness of breath, nausea vomiting and fever with poor appetite and weight loss. In the emergency room she is found to have a right-sided lung mass about the hilum with distorted anatomy. She receives empiric antibiotics and referred to the hospitalist for admission. She is not a candidate for chemotherapy given profound debility and advanced state she elects for DNR and considering hospice. Past Medical History Cardiac Medical History: Reports: Coronary Artery Disease, Hypertension Denies: Myocardial Infarction Pulmonary Medical History: Reports: Asthma, Chronic Obstructive Pulmonary Disease (COPD) Denies: Bronchitis, Pneumonia Neurological Medical History: Denies: Seizures GI Medical History: Denies: Hepatitis, Hiatal Hernia Musculoskeltal Medical History: Reports: Arthritis Psychiatric Medical History: Reports: Depression Hematology: Reports: Anemia - MEDICATED Denies: Sickle Cell Disease Past Surgical History Past Surgical History: Reports: Appendectomy, Hysterectomy Denies: Amputation, Mastectomy, Pacemaker Social History Information Source: Patient, [facility] Records Smoking Status: Former Smoker Electronic Cigarette use?: No Frequency of Alcohol Use: None Hx Recreational Drug Use: No Drugs: None Hx Prescription Drug Abuse: No - Advance Directive Resuscitation Status: Do Not Resuscitate Family History Family History: Hypertension Parental Family History Reviewed: Yes Children Family History Reviewed: Yes Sibling(s) Family History Reviewed.: Yes Medication/Allergy Home Medications: Acetaminophen [Tylenol] 325 mg PO Q12HP PRN 12/27/18 Aspirin [Ecotrin 81 mg EC Tablet] 81 mg PO DAILY 12/27/18 Benzonatate [Tessalon Perles 100 mg Capsule] 100 mg PO Q8HP PRN 12/27/18 Cetirizine HCl [Zyrtec 10 mg Tablet] 10 mg PO DAILY 12/27/18 Donepezil HCl [Aricept] 10 mg PO DAILY 12/27/18 Dronabinol [Marinol 2.5 mg Capsule] 2.5 mg PO BID 12/27/18 Megestrol Acetate [Megace Carrie 400 mg/10 ml Udcup] 400 mg PO DAILY 12/27/18 Mirtazapine [Remeron 15 mg Tablet] 15 mg PO QHS 12/27/18 Omeprazole 40 mg PO DAILY 12/27/18 Ondansetron HCl [Zofran 4 mg Tablet] 4 mg PO Q4HP PRN 12/27/18 Ropinirole HCl [Requip] 0.5 mg PO QHS 12/27/18 Allergies/Adverse Reactions: gentamicin [Gentamicin] Allergy (Mild, Verified 12/27/18 17:21) UNK latex [Latex] Allergy (Mild, Verified 12/27/18 17:21) RASH metronidazole [From Flagyl] Allergy (Mild, Verified 12/27/18 17:21) Nausea Metronidazole HCl [From Flagyl] Allergy (Mild, Verified 12/27/18 17:21) Nausea Penicillins Allergy (Mild, Verified 12/27/18 17:21) THROAT SWELLS Review of Systems Constitutional: PRESENT: as per HPI, anorexia, fatigue, fever(s), weakness, weight loss Eyes: ABSENT: visual disturbances Ears: ABSENT: hearing changes Cardiovascular: PRESENT: as per HPI, chest pain - Pleuritic, dyspnea on exertion. ABSENT: edema, orthropnea, palpitations Respiratory: PRESENT: as per HPI, cough, dyspnea. ABSENT: sputum Gastrointestinal: ABSENT: abdominal pain, constipation, diarrhea, hematemesis, hematochezia, nausea, vomiting Genitourinary: ABSENT: dysuria, hematuria Musculoskeletal: ABSENT: joint swelling Integumentary: ABSENT: rash, wounds Neurological: ABSENT: abnormal gait, abnormal speech, confusion, dizziness, focal weakness, syncope Psychiatric: ABSENT: anxiety, depression, homidical ideation, suicidal ideation Endocrine: ABSENT: cold intolerance, heat intolerance, polydipsia, polyuria Hematologic/Lymphatic: ABSENT: easy bleeding, easy bruising Physical Exam Vital Signs: Temp Pulse Resp BP Pulse Ox 97.7 F 70 16 133/49 H 96 12/27/18 22:57 12/28/18 02:12 12/28/18 02:12 12/27/18 22:57 12/28/18 02:12 Intake & Output 12/26/18 12/27/18 12/28/18 11:59 11:59 11:59 Intake Total 1050 Balance 1050 Weight 34.5 kg General appearance: PRESENT: cooperative, mild distress, thin, other - Severe cachexia and temporal wasting Head exam: PRESENT: atraumatic, normocephalic Eye exam: PRESENT: conjunctiva pink, EOMI, PERRLA. ABSENT: scleral icterus Ear exam: PRESENT: normal external ear exam Mouth exam: PRESENT: moist, tongue midline Neck exam: ABSENT: carotid bruit, JVD, lymphadenopathy, thyromegaly Respiratory exam: PRESENT: accessory muscle use, clear to auscultation shayy, crackles, prolonged expiratory phas, retraction, symmetrical, tachypnea. ABSENT: rales, rhonchi, wheezes Cardiovascular exam: PRESENT: RRR. ABSENT: diastolic murmur, rubs, systolic murmur Pulses: PRESENT: normal dorsalis pedis pul Vascular exam: PRESENT: normal capillary refill GI/Abdominal exam: PRESENT: normal bowel sounds, soft. ABSENT: distended, guarding, mass, organolmegaly, rebound, tenderness Rectal exam: PRESENT: deferred Extremities exam: PRESENT: full ROM. ABSENT: calf tenderness, clubbing, pedal edema Neurological exam: PRESENT: alert, awake, oriented to person, oriented to place, oriented to time, oriented to situation, CN II-XII grossly intact. ABSENT: motor sensory deficit Psychiatric exam: PRESENT: appropriate affect, normal mood. ABSENT: homicidal ideation, suicidal ideation Skin exam: PRESENT: dry, intact, warm. ABSENT: cyanosis, rash Results Laboratory Results: 12/27/18 17:54 12/27/18 17:54 12/27/18 12/27/18 12/27/18 17:54 17:54 17:54 WBC 17.6 H RBC 4.82 Hgb 14.4 Hct 43.0 MCV 89 MCH 29.8 MCHC 33.5 RDW 14.7 H Plt Count 184 Seg Neutrophils % Not Reportable Sodium 143.7 Potassium 2.7 L* Chloride 98 Carbon Dioxide 32 H Anion Gap 14 BUN 18 Creatinine 0.67 Est GFR ( Amer) > 60 Glucose 141 H Calcium 9.4 Magnesium 2.5 H Total Bilirubin 1.2 AST 31 Alkaline Phosphatase 75 Total Protein 5.9 L Albumin 3.6 Lipase 35.1 Impressions: Abdomen/Pelvis CT 12/27/18 17:24 IMPRESSION: Chest: No evidence of pulmonary embolism. Persistent irregular right suprahilar/hilar masslike areas of consolidation with associated adjacent architectural distortion and groundglass opacity, stable to increased from the previous examination dated 11/14/2018. Differential considerations include worsening malignancy, development of adjacent infection, or postradiation change in the appropriate clinical setting. Likewise, the mass appears to circumferentially encase and narrow several of the pulmonary arterial vasculature. Concomitant solid nodules about both lungs are indeterminate. 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 This was present on the previous CT dated 09/12/2012. Increasing bulky mediastinal and bilateral hilar lymphadenopathy. The large subcarinal damien mass appears increasingly necrotic, now circumferentially encasing and likely narrowing the mid thoracic esophagus. As a result, the proximal third of the esophagus is dilated and fluid-filled, suggestive of obstruction. Superimposed hyperdensity about the mid thoracic esophagus most likely corresponds to a focus of retained intraluminal oral contrast material. Small right pleural effusion with associated right basilar atelectasis. Abdomen/pelvis: No acute abnormality within the abdomen or pelvis. Necrotic lymphadenopathy about the gastrohepatic ligament, indicative of metastatic disease. Indeterminate subcentimeter hypodense lesions throughout the liver parenchyma, raising the possibility of metastatic disease. TECHNICAL DOCUMENTATION: Quality ID # [id number]: Final reports with documentation of one or more dose reduction techniques (e.g., Automated exposure control, adjustment of the mA and/or kV according to patient size, use of iterative reconstruction technique) copyright 2011 [employer]- All Rights Reserved Chest/Abdomen CTA 12/27/18 17:27 IMPRESSION: Chest: No evidence of pulmonary embolism. Persistent irregular right suprahilar/hilar masslike areas of consolidation with associated adjacent architectural distortion and groundglass opacity, stable to increased from the previous examination dated 11/14/2018. Differential considerations include worsening malignancy, development of adjacent infection, or postradiation change in the appropriate clinical setting. Likewise, the mass appears to circumferentially encase and narrow several of the pulmonary arterial vasculature. Concomitant solid nodules about both lungs are indeterminate. 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 This was present on the previous CT dated 09/12/2012. Increasing bulky mediastinal and bilateral hilar lymphadenopathy. The large subcarinal damien mass appears increasingly necrotic, now circumferentially encasing and likely narrowing the mid thoracic esophagus. As a result, the proximal third of the esophagus is dilated and fluid-filled, suggestive of obstruction. Superimposed hyperdensity about the mid thoracic esophagus most likely corresponds to a focus of retained intraluminal oral contrast material. Small right pleural effusion with associated right basilar atelectasis. Abdomen/pelvis: No acute abnormality within the abdomen or pelvis. Necrotic lymphadenopathy about the gastrohepatic ligament, indicative of metastatic disease. Indeterminate subcentimeter hypodense lesions throughout the liver parenchyma, raising the possibility of metastatic disease. TECHNICAL DOCUMENTATION: Quality ID # [id number]: Final reports with documentation of one or more dose reduction techniques (e.g., Automated exposure control, adjustment of the mA and/or kV according to patient size, use of iterative reconstruction technique) copyright 2011 [employer]- All Rights Reserved Chest X-Ray 12/27/18 19:23 IMPRESSION: 1. Right hilar mass with associated infiltrate, likely pneumonia. The infiltrate has only slightly improved since 12/12/2018. 2. No pneumothorax or pleural effusion. Assessment and Plan - Diagnosis (1) Pneumonia Qualifiers: Is this a current diagnosis for this admission?: Yes Plan: Complicated by advanced terminal lung cancer. Empiric antibiotics initiated, follow-up CBC and blood culture (2) COPD with acute exacerbation Is this a current diagnosis for this admission?: Yes Plan: Incentive spirometry, flutter valve, albuterol, Atrovent, (3) Lung cancer Qualifiers: Laterality: right Lung location: hilum of lung Qualified Code(s): C34.01 - Malignant neoplasm of right main bronchus Is this a current diagnosis for this admission?: Yes Plan: Hospice consulted (4) Protein-calorie malnutrition, moderate Is this a current diagnosis for this admission?: Yes Plan: Beneprotein, - Time Time Spent with patient: 25-34 minutes - Inpatient Certification Based on my medical assessment, after consideration of the patient's comorbidities, presenting symptoms, or acuity I expect that the services needed warrant INPATIENT care.: Yes I certify that my determination is in accordance with my understanding of Medicare's requirements for reasonable and necessary INPATIENT services [42 CFR 412.3e].: Yes Medical Necessity: Need Close Monitoring Due to Risk of Patient Decompensation
[2018-12-28 06:21] LABS: HEMATOCRIT 37.5 % (36.0-47.0); HEMOGLOBIN 12.5 g/dL (12.0-15.5); MEAN CORPUSCULAR HEMOGLOBIN 29.7 pg (27.0-33.4); MEAN CORPUSCULAR HGB CONC 33.4 g/dL (32.0-36.0); MEAN CORPUSCULAR VOLUME 89 fl (80-97); PLATELET COUNT 165 10^3/uL (150-450); RED BLOOD COUNT 4.22 10^6/uL (3.72-5.28); RED CELL DISTRIBUTION WIDTH 15.2 % (11.5-14.0); WHITE BLOOD COUNT 13.8 10^3/uL (4.0-10.5)
[2018-12-28 06:42] LABS: ANION GAP 6 (5-19); BLOOD UREA NITROGEN 20 mg/dL (7-20); CALCIUM 8.9 mg/dL (8.4-10.2); CARBON DIOXIDE 36 mmol/L (22-30); CHLORIDE 102 mmol/L (98-107); GLUCOSE 95 mg/dL (75-110)
[2018-12-28 06:48] LABS: POTASSIUM 2.7 mmol/L (3.6-5.0)
[2018-12-28 06:51] LABS: ABSOLUTE LYMPHOCYTES# (MANUAL) 0.7 10^3/uL (0.5-4.7); ABSOLUTE MONOCYTES # (MANUAL) 0.7 10^3/uL (0.1-1.4); ANISOCYTOSIS 1+; BAND NEUTROPHILS % (MANUAL) 2 % (3-5); BASOPHILS % (MANUAL) 0 % (0-2); EOSINOPHILS % (MANUAL) 0 % (0-6); LYMPHOCYTES % (MANUAL) 5 % (13-45); MONOCYTES % (MANUAL) 5 % (3-13); PLATELET COMMENT ADEQUATE; POLYCHROMASIA 1+; SEGMENTED NEUTROPHILS % (MAN) 88 % (42-78); TOTAL CELLS COUNTED 100
[2018-12-28] MEDS: DRONABINOL 2.5 MG CAPSULE PO SCH ×2 (11:47→18:13)
[2018-12-28] MEDS: ASPIRIN 81 MG TABLET, ENT COATED PO SCH (11:47)
[2018-12-28] MEDS: POTASSIUM CHLORIDE 10 MEQ CAPSULE.ER PO SCH ×2 (11:47→22:40)
[2018-12-28] MEDS: CETIRIZINE 10 MG TABLET PO SCH (11:47)
[2018-12-28] MEDS: DONEPEZIL HCL 5 MG TABLET PO SCH (11:47)
[2018-12-28] MEDS: MEGESTROL ACETATE SUSP 400 MG/10 ML UDCUP PO SCH ×2 (11:48→12:04)
--- NOTE | 2018-12-28 17:58 | PDOC PROGRESS REPORT ---
Subjective Progress Note for:: 12/28/18 Subjective:: No adverse events overnight. No new complaints. Still just cannot keep anything down and does not feel like eating. Reason For Visit: COPD PNEUMONIA Physical Exam Vital Signs: Temp Pulse Resp BP Pulse Ox 97.7 F 95 16 133/56 H 95 12/28/18 12:26 12/28/18 14:00 12/28/18 14:00 12/28/18 12:26 12/28/18 14:00 Intake & Output 12/27/18 12/28/18 12/29/18 06:59 06:59 06:59 Intake Total 1290 50 Balance 1290 50 Weight 34.5 kg 34.5 kg General appearance: PRESENT: no acute distress, cooperative, disheveled, thin Respiratory exam: PRESENT: decreased breath sounds, prolonged expiratory phas, symmetrical, unlabored. ABSENT: accessory muscle use, chest wall tenderness, crackles, rhonchi, tachypnea, wheezes Cardiovascular exam: PRESENT: RRR, +S1, +S2 Pulses: PRESENT: normal carotid pulses Vascular exam: PRESENT: normal capillary refill GI/Abdominal exam: PRESENT: hypoactive bowel sounds, soft. ABSENT: distended, guarding, rebound, tenderness Extremities exam: ABSENT: clubbing, pedal edema Musculoskeletal exam: PRESENT: other - Diffuse muscle wasting. ABSENT: deformity Neurological exam: PRESENT: alert, awake, oriented to person, oriented to place Psychiatric exam: PRESENT: flat affect Skin exam: PRESENT: dry, warm, other - Dusky Results Laboratory Results: 12/28/18 05:30 12/28/18 05:30 12/27/18 12/27/18 12/27/18 17:54 17:54 17:54 WBC 17.6 H RBC 4.82 Hgb 14.4 Hct 43.0 MCV 89 MCH 29.8 MCHC 33.5 RDW 14.7 H Plt Count 184 Seg Neutrophils % Not Reportable Sodium 143.7 Potassium 2.7 L* Chloride 98 Carbon Dioxide 32 H Anion Gap 14 BUN 18 Creatinine 0.67 Est GFR ( Amer) > 60 Glucose 141 H Calcium 9.4 Magnesium 2.5 H Total Bilirubin 1.2 AST 31 Alkaline Phosphatase 75 Total Protein 5.9 L Albumin 3.6 Lipase 35.1 12/28/18 12/28/18 05:30 05:30 WBC 13.8 H RBC 4.22 Hgb 12.5 Hct 37.5 MCV 89 MCH 29.7 MCHC 33.4 RDW 15.2 H Plt Count 165 Seg Neutrophils % Not Reportable Sodium 144.3 Potassium 2.7 L* Chloride 102 Carbon Dioxide 36 H Anion Gap 6 BUN 20 Creatinine 0.65 Est GFR ( Amer) > 60 Glucose 95 Calcium 8.9 Magnesium Total Bilirubin AST Alkaline Phosphatase Total Protein Albumin Lipase Impressions: Abdomen/Pelvis CT 12/27/18 17:24 IMPRESSION: Chest: No evidence of pulmonary embolism. Persistent irregular right suprahilar/hilar masslike areas of consolidation with associated adjacent architectural distortion and groundglass opacity, stable to increased from the previous examination dated 11/14/2018. Differential considerations include worsening malignancy, development of adjacent infection, or postradiation change in the appropriate clinical setting. Likewise, the mass appears to circumferentially encase and narrow several of the pulmonary arterial vasculature. Concomitant solid nodules about both lungs are indeterminate. 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 This was present on the previous CT dated 09/12/2012. Increasing bulky mediastinal and bilateral hilar lymphadenopathy. The large subcarinal damien mass appears increasingly necrotic, now circumferentially encasing and likely narrowing the mid thoracic esophagus. As a result, the proximal third of the esophagus is dilated and fluid-filled, suggestive of obstruction. Superimposed hyperdensity about the mid thoracic esophagus most likely corresponds to a focus of retained intraluminal oral contrast material. Small right pleural effusion with associated right basilar atelectasis. Abdomen/pelvis: No acute abnormality within the abdomen or pelvis. Necrotic lymphadenopathy about the gastrohepatic ligament, indicative of metastatic disease. Indeterminate subcentimeter hypodense lesions throughout the liver parenchyma, raising the possibility of metastatic disease. TECHNICAL DOCUMENTATION: Quality ID # [id number]: Final reports with documentation of one or more dose reduction techniques (e.g., Automated exposure control, adjustment of the mA and/or kV according to patient size, use of iterative reconstruction technique) copyright 2010 [employer]- All Rights Reserved Chest/Abdomen CTA 12/27/18 17:27 IMPRESSION: Chest: No evidence of pulmonary embolism. Persistent irregular right suprahilar/hilar masslike areas of consolidation with associated adjacent architectural distortion and groundglass opacity, stable to increased from the previous examination dated 11/14/2018. Differential considerations include worsening malignancy, development of adjacent infection, or postradiation change in the appropriate clinical setting. Likewise, the mass appears to circumferentially encase and narrow several of the pulmonary arterial vasculature. Concomitant solid nodules about both lungs are indeterminate. 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 This was present on the previous CT dated 09/12/2012. Increasing bulky mediastinal and bilateral hilar lymphadenopathy. The large subcarinal damien mass appears increasingly necrotic, now circumferentially encasing and likely narrowing the mid thoracic esophagus. As a result, the proximal third of the esophagus is dilated and fluid-filled, suggestive of obstruction. Superimposed hyperdensity about the mid thoracic esophagus most likely corresponds to a focus of retained intraluminal oral contrast material. Small right pleural effusion with associated right basilar atelectasis. Abdomen/pelvis: No acute abnormality within the abdomen or pelvis. Necrotic lymphadenopathy about the gastrohepatic ligament, indicative of metastatic disease. Indeterminate subcentimeter hypodense lesions throughout the liver parenchyma, raising the possibility of metastatic disease. TECHNICAL DOCUMENTATION: Quality ID # [id number]: Final reports with documentation of one or more dose reduction techniques (e.g., Automated exposure control, adjustment of the mA and/or kV according to patient size, use of iterative reconstruction technique) copyright 2011 [employer]- All Rights Reserved Chest X-Ray 12/27/18 19:23 IMPRESSION: 1. Right hilar mass with associated infiltrate, likely pneumonia. The infiltrate has only slightly improved since 12/12/2018. 2. No pneumothorax or pleural effusion. Assessment and Plan - Diagnosis (1) Lung cancer Qualifiers: Laterality: right Lung location: hilum of lung Qualified Code(s): C34.01 - Malignant neoplasm of right main bronchus Is this a current diagnosis for this admission?: Yes Plan: She got diffuse adenopathy in her chest and she has worsening adenopathy in her abdomen and some possible metastatic deposits in her liver. I spoke with Dr. Zimmerman on the phone and he believes that the patient is at a point that she needs hospice, and that she is too frail to undergo any treatment. I asked the family if it was okay if I got someone from hospice to come talk to them, and they readily agreed. I think that her worsening disease is the cause of her persistent nausea, and will continue to give her IV fluids and various antiemetics and attempt to give her some relief. (2) Pneumonia Qualifiers: Laterality: right Lung location: middle lobe of lung Is this a current diagnosis for this admission?: Yes Plan: Possible postobstructive pneumonia persisting, this could be just residual from her previous pneumonia but we got her on antibiotics and just in case. (3) Dehydration Is this a current diagnosis for this admission?: Yes Plan: Given her some IV fluids because she cannot take anything by mouth due to her nausea (4) Emphysema/COPD Qualifiers: Emphysema type: centrilobular Qualified Code(s): J43.2 - Centrilobular emphysema Is this a current diagnosis for this admission?: Yes Plan: She also has chronic respiratory failure. I do not think this is acutely exacerbated at this time but will give her her home medications and treat her supportively. (5) Protein-calorie malnutrition, moderate Is this a current diagnosis for this admission?: Yes Plan: She does not eat because she cannot keep anything down, and she has not really eaten well in quite some time. When she feels like eating again will encourage her to try to eat. - Time Time Spent with patient: 25-34 minutes
[2018-12-28] MEDS ORDERED: VANCOMYCIN HCL 500 MG in DEXTROSE 5%-WATER 100 ML IV SCH (18:00)
[2018-12-28] MEDS ORDERED: DIPHENHYDRAMINE HCL 25 MG/10 ML UDC PO PRN (20:49)
[2018-12-28 21:09] LABS: ANION GAP 6 (5-19); BLOOD UREA NITROGEN 21 mg/dL (7-20); CALCIUM 8.9 mg/dL (8.4-10.2); CARBON DIOXIDE 34 mmol/L (22-30); CHLORIDE 106 mmol/L (98-107); GLUCOSE 98 mg/dL (75-110)
[2018-12-28 21:13] LABS: POTASSIUM 2.8 mmol/L (3.6-5.0)
[2018-12-28] MEDS ORDERED: MIRTAZAPINE 15 MG TABLET PO SCH (22:00)
[2018-12-28] MEDS ORDERED: DIPHENHYDRAMINE HCL 25 MG CAPSULE PO SCH (22:00)
[2018-12-28] MEDS ORDERED: ROPINIROLE HCL 0.25 MG TABLET PO SCH (22:00)
[2018-12-28 22:39] LABS: CREATINE KINASE MB 1.03 ng/mL (<4.55)
[2018-12-28 22:41] LABS: TROPONIN I 0.121 ng/mL
[2018-12-28] MEDS ORDERED: METOPROLOL TARTRATE PF/INJ 5 MG/5 ML SDV IV ONE (22:54)
[2018-12-28] MEDS ORDERED: MORPHINE SULFATE 10 MG/ML INJ IV ONE (22:57)
[2018-12-28] MEDS ORDERED: NITROGLYCERIN 0.4 MG/TAB 25 TAB/BOTTLE SL PRN (22:58)
[2018-12-28] MEDS: POTASSIUM CHLORIDE 20 MEQ/50 ML RTU IV SCH (23:02)
[2018-12-28] MEDS ORDERED: ASPIRIN 325 MG TABLET PO ONE (23:15)
[2018-12-29] MEDS: POTASSIUM CHLORIDE 20 MEQ/50 ML RTU IV SCH ×2 (00:30→03:11)
[2018-12-29] MEDS: IPRATROPIUM/ALBUTEROL 0.5-2.5 MG/3 ML AMPUL NEB SCH ×2 (01:59→08:18)
[2018-12-29] MEDS: MORPHINE SULFATE 10 MG/ML INJ IV PRN ×6 (03:10→22:03)
[2018-12-29] MEDS: ONDANSETRON HCL INJ/PF 4 MG/2 ML SDV IV PRN ×2 (03:10→09:53)
[2018-12-29] MEDS ORDERED: MORPHINE SULFATE 10 MG/ML INJ ONE (04:50)
[2018-12-29] MEDS: HEPARIN SOD (PORCINE) 5,000 UNIT/ML 1 ML VIAL SUBCUT SCH (05:24)
[2018-12-29] MEDS ORDERED: POTASSI CL 20 MEQ/50 ML RIDER 20 MEQ/50 ML RTUPB IV SCH (09:00)
[2018-12-29] MEDS: DONEPEZIL HCL 5 MG TABLET PO SCH (09:29)
[2018-12-29] MEDS: FLUTICASONE NASAL SPRAY 50 MCG/SPRY 120 SPRAY/16 GM NASL SCH ×2 (09:30→21:09)
[2018-12-29] MEDS: PREDNISONE 20 MG TABLET PO SCH (09:30)
[2018-12-29] MEDS: GUAIFENESIN 600 MG TABLET.SA PO SCH (09:30)
[2018-12-29] MEDS: DRONABINOL 2.5 MG CAPSULE PO SCH (09:30)
[2018-12-29] MEDS: CEFEPIME 2 GM/D5W RTU 2 GM/50 ML RTUPB IV SCH (09:31)
[2018-12-29] MEDS: CETIRIZINE 10 MG TABLET PO SCH (09:31)
[2018-12-29] MEDS: ASPIRIN 81 MG TABLET, ENT COATED PO SCH (09:33)
--- NOTE | 2018-12-29 11:17 | PDOC CONSULTATION ---
Consultation Consult Date: 12/29/18 Attending physician:: BHARAT GUTIERREZ Provider Consulted: [facility] Consult reason:: Weight loss, cough, shortness of breath, stage IV lung cancer, pain History of Present Illness Admission Date/PCP: 12/27/18 20:37 BRITTNEE GIBBS PA-C Patient complains of: Cough, pain, shortness of breath, nausea vomiting History of Present Illness: GILMA WILDER is a 83 year old female who I originally saw now about 9 days ago in office with stage IV lung cancer, she has a large primary mass with midsternal adenopathy and supraclavicular adenopathy. We were giving her outpatient hydration hoping that she would improve but she presented to her PCP about 2 days ago with nausea vomiting, and severe pain so we sent her to the ED, in the ED she was hypotensive tachycardic septic in appearance, she was given ag gressive hydration pain medication, antibiotics and she improved slowly. This morning she looks a little bit better. Today we had a long discussion about next steps of care, we spent about 1 hour in discussion. We discussed comfort care and hospice at length and patient and family are agreeable to this. Past Medical History Cardiac Medical History: Reports: Coronary Artery Disease, Hypertension Denies: Myocardial Infarction Pulmonary Medical History: Reports: Asthma, Chronic Obstructive Pulmonary Disease (COPD) Denies: Bronchitis, Pneumonia Neurological Medical History: Denies: Seizures GI Medical History: Denies: Hepatitis, Hiatal Hernia Musculoskeltal Medical History: Reports: Arthritis Psychiatric Medical History: Reports: Depression Hematology: Reports: Anemia - MEDICATED Denies: Sickle Cell Disease Past Surgical History Past Surgical History: Reports: Appendectomy, Hysterectomy Denies: Amputation, Mastectomy, Pacemaker Social History Information Source: Patient Smoking Status: Former Smoker Electronic Cigarette use?: No Frequency of Alcohol Use: None Hx Recreational Drug Use: No Drugs: None Hx Prescription Drug Abuse: No - Advance Directive Resuscitation Status: Do Not Resuscitate Family History Family History: Hypertension Parental Family History Reviewed: Yes Children Family History Reviewed: Yes Sibling(s) Family History Reviewed.: Yes Medication/Allergy Home Medications: Acetaminophen [Tylenol] 325 mg PO Q12HP PRN 12/27/18 Aspirin [Ecotrin 81 mg EC Tablet] 81 mg PO DAILY 12/27/18 Benzonatate [Tessalon Perles 100 mg Capsule] 100 mg PO Q8HP PRN 12/27/18 Cetirizine HCl [Zyrtec 10 mg Tablet] 10 mg PO DAILY 12/27/18 Donepezil HCl [Aricept] 10 mg PO DAILY 12/27/18 Dronabinol [Marinol 2.5 mg Capsule] 2.5 mg PO BID 12/27/18 Megestrol Acetate [Megace Carrie 400 mg/10 ml Udcup] 400 mg PO DAILY 12/27/18 Mirtazapine [Remeron 15 mg Tablet] 15 mg PO QHS 12/27/18 Omeprazole 40 mg PO DAILY 12/27/18 Ondansetron HCl [Zofran 4 mg Tablet] 4 mg PO Q4HP PRN 12/27/18 Ropinirole HCl [Requip] 0.5 mg PO QHS 12/27/18 Allergies/Adverse Reactions: gentamicin [Gentamicin] Allergy (Mild, Verified 12/27/18 17:21) UNK latex [Latex] Allergy (Mild, Verified 12/27/18 17:21) RASH metronidazole [From Flagyl] Allergy (Mild, Verified 12/27/18 17:21) Nausea Metronidazole HCl [From Flagyl] Allergy (Mild, Verified 12/27/18 17:21) Nausea Penicillins Allergy (Mild, Verified 12/27/18 17:21) THROAT SWELLS Review of Systems Constitutional: ABSENT: chills, fever(s), headache(s), weight gain, weight loss Eyes: ABSENT: visual disturbances Ears: ABSENT: hearing changes Cardiovascular: ABSENT: chest pain, dyspnea on exertion, edema, orthropnea, palpitations Respiratory: ABSENT: cough, hemoptysis Gastrointestinal: ABSENT: abdominal pain, constipation, diarrhea, hematemesis, hematochezia, nausea, vomiting Genitourinary: ABSENT: dysuria, hematuria Musculoskeletal: ABSENT: joint swelling Integumentary: ABSENT: rash, wounds Neurological: ABSENT: abnormal gait, abnormal speech, confusion, dizziness, focal weakness, syncope Psychiatric: ABSENT: anxiety, depression, homidical ideation, suicidal ideation Endocrine: ABSENT: cold intolerance, heat intolerance, polydipsia, polyuria Hematologic/Lymphatic: ABSENT: easy bleeding, easy bruising Physical Exam Vital Signs: Temp Pulse Resp BP Pulse Ox 98.3 F 90 18 157/79 H 94 12/29/18 07:53 12/29/18 08:31 12/29/18 08:31 12/29/18 07:53 12/29/18 08:31 Intake & Output 12/28/18 12/29/18 12/30/18 06:59 06:59 06:59 Intake Total 1290 767 Balance 1290 767 Weight 34.5 kg 38.7 kg General appearance: PRESENT: no acute distress, well-developed, well-nourished Head exam: PRESENT: atraumatic, normocephalic Eye exam: PRESENT: conjunctiva pink, EOMI, PERRLA. ABSENT: scleral icterus Ear exam: PRESENT: normal external ear exam Mouth exam: PRESENT: moist, tongue midline Neck exam: ABSENT: carotid bruit, JVD, lymphadenopathy, thyromegaly Respiratory exam: PRESENT: clear to auscultation shayy. ABSENT: rales, rhonchi, wheezes Cardiovascular exam: PRESENT: RRR. ABSENT: diastolic murmur, rubs, systolic murmur Pulses: PRESENT: normal dorsalis pedis pul Vascular exam: PRESENT: normal capillary refill GI/Abdominal exam: PRESENT: normal bowel sounds, soft. ABSENT: distended, guarding, mass, organolmegaly, rebound, tenderness Rectal exam: PRESENT: deferred Extremities exam: PRESENT: full ROM. ABSENT: calf tenderness, clubbing, pedal edema Neurological exam: PRESENT: alert, awake, oriented to person, oriented to place, oriented to time, oriented to situation, CN II-XII grossly intact. ABSENT: motor sensory deficit Psychiatric exam: PRESENT: appropriate affect, normal mood. ABSENT: homicidal ideation, suicidal ideation Skin exam: PRESENT: dry, intact, warm. ABSENT: cyanosis, rash Results Laboratory Results: 12/28/18 05:30 12/28/18 20:37 12/28/18 20:37 Sodium 145.5 H Potassium 2.8 L* Chloride 106 Carbon Dioxide 34 H Anion Gap 6 BUN 21 H Creatinine 0.56 Est GFR ( Amer) > 60 Glucose 98 Calcium 8.9 Magnesium 2.5 H 12/28/18 12/28/18 22:04 22:04 Creatine Kinase 23 L CK-MB (CK-2) 1.03 Troponin I 0.121 Impressions: Abdomen/Pelvis CT 12/27/18 17:24 IMPRESSION: Chest: No evidence of pulmonary embolism. Persistent irregular right suprahilar/hilar masslike areas of consolidation with associated adjacent architectural distortion and groundglass opacity, stable to increased from the previous examination dated 11/14/2018. Differential considerations include worsening malignancy, development of adjacent infection, or postradiation change in the appropriate clinical setting. Likewise, the mass appears to circumferentially encase and narrow several of the pulmonary arterial vasculature. Concomitant solid nodules about both lungs are indeterminate. 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 This was present on the previous CT dated 09/12/2012. Increasing bulky mediastinal and bilateral hilar lymphadenopathy. The large subcarinal damien mass appears increasingly necrotic, now circumferentially encasing and likely narrowing the mid thoracic esophagus. As a result, the proximal third of the esophagus is dilated and fluid-filled, suggestive of obstruction. Superimposed hyperdensity about the mid thoracic esophagus most likely corresponds to a focus of retained intraluminal oral contrast material. Small right pleural effusion with associated right basilar atelectasis. Abdomen/pelvis: No acute abnormality within the abdomen or pelvis. Necrotic lymphadenopathy about the gastrohepatic ligament, indicative of metastatic disease. Indeterminate subcentimeter hypodense lesions throughout the liver parenchyma, raising the possibility of metastatic disease. TECHNICAL DOCUMENTATION: Quality ID # [id number]: Final reports with documentation of one or more dose reduction techniques (e.g., Automated exposure control, adjustment of the mA and/or kV according to patient size, use of iterative reconstruction technique) copyright 2011 [employer]- All Rights Reserved Chest/Abdomen CTA 12/27/18 17:27 IMPRESSION: Chest: No evidence of pulmonary embolism. Persistent irregular right suprahilar/hilar masslike areas of consolidation with associated adjacent architectural distortion and groundglass opacity, stable to increased from the previous examination dated 11/14/2018. Differential considerations include worsening malignancy, development of adjacent infection, or postradiation change in the appropriate clinical setting. Likewise, the mass appears to circumferentially encase and narrow several of the pulmonary arterial vasculature. Concomitant solid nodules about both lungs are indeterminate. 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 This was present on the previous CT dated 09/12/2012. Increasing bulky mediastinal and bilateral hilar lymphadenopathy. The large subcarinal damien mass appears increasingly necrotic, now circumferentially encasing and likely narrowing the mid thoracic esophagus. As a result, the proximal third of the esophagus is dilated and fluid-filled, suggestive of obstruction. Superimposed hyperdensity about the mid thoracic esophagus most likely corresponds to a focus of retained intraluminal oral contrast material. Small right pleural effusion with associated right basilar atelectasis. Abdomen/pelvis: No acute abnormality within the abdomen or pelvis. Necrotic lymphadenopathy about the gastrohepatic ligament, indicative of metastatic disease. Indeterminate subcentimeter hypodense lesions throughout the liver parenchyma, raising the possibility of metastatic disease. TECHNICAL DOCUMENTATION: Quality ID # [id number]: Final reports with documentation of one or more dose reduction techniques (e.g., Automated exposure control, adjustment of the mA and/or kV according to patient size, use of iterative reconstruction technique) copyright 2011 [employer]- All Rights Reserved Chest X-Ray 12/27/18 19:23 IMPRESSION: 1. Right hilar mass with associated infiltrate, likely pneumonia. The infiltrate has only slightly improved since 12/12/2018. 2. No pneumothorax or pleural effusion. Assessment & Plan - Diagnosis (1) Lung cancer Qualifiers: Laterality: right Lung location: hilum of lung Qualified Code(s): C34.01 - Malignant neoplasm of right main bronchus Is this a current diagnosis for this admission?: Yes Plan: Stage IV lung cancer, not a candidate for treatment, hospice appropriate, life expectancy less than 6 months. Today I had a long discussion about that with the patient. Discharge planning is seen the patient and given them hospice choices and they have selected hospice agency who will be meeting them today. Continue with mostly IV pain medication and IV antiemetics today, transition as an outpatient to liquid oral morphine. Patient will need hospital bed, bedside commode, comfort care kit. - Time Time Spent: Greater than 70 Minutes - Inpatient Certification Based on my medical assessment, after consideration of the patient's comorbidities, presenting symptoms, or acuity I expect that the services needed warrant INPATIENT care.: Yes I certify that my determination is in accordance with my understanding of Medicare's requirements for reasonable and necessary INPATIENT services [42 CFR 412.3e].: Yes Medical Necessity: Need For IV Fluids, Need for Pain Control, Need for IV Antibiotics
[2018-12-29] MEDS ORDERED: BISACODYL 10 MG SUPP.RECT PR PRN (11:20)
[2018-12-29] MEDS ORDERED: NA PHOS,M-B/NA PHOS,DI-BA (ADULT) 133 ML ENEMA PR ONE (11:24)
[2018-12-29] MEDS ORDERED: ACETAMINOPHEN 325 MG SUPP.RECT PR PRN (11:26)
[2018-12-29] MEDS: ATROPINE SULFATE 1% OPH SOLN 5 ML BOTTLE SL SCH ×2 (12:19→17:13)
[2018-12-29] MEDS ORDERED: SCOPOLAMINE HYDROBROMIDE 1.5 MG PATCH.TD72 TD ONE (12:30)
[2018-12-29] MEDS: LORAZEPAM INJ 2 MG/1 ML VIAL IV PRN (13:04)
[2018-12-29] MEDS: DEXAMETHASONE SOD PHOS INJ 10 MG/1 ML VIAL IV SCH ×2 (14:00→22:06)
--- NOTE | 2018-12-29 17:21 | EKG REPORT ---
SEVERITY:- ABNORMAL ECG - SINUS OR ECTOPIC ATRIAL RHYTHM INCOMPLETE LEFT BUNDLE BRANCH BLOCK INFERIOR INFARCT, AGE INDETERMINATE EXTENSIVE ANTERIOR INFARCT, RECENT : Confirmed by: Bobo Waddell MD 29-Dec-2018 17:20:30
[2018-12-29] MEDS ORDERED: CARBOXYMETHYLCELLULOSE SOD 0.5% 0.4 ML DROPERETTE OU PRN (18:04)
--- NOTE | 2018-12-29 18:09 | PDOC PROGRESS REPORT ---
Subjective Progress Note for:: 12/29/18 Subjective:: The patient is an 83-year-old female with a past medical history of lung cancer with postobstructive pneumonia, COPD, cachexia, and debility who was admitted 12/27/2018 for pneumonia, COPD exacerbation and lung cancer. The patient was seen on morning rounds with her daughter present. She is found sitting up to the bedside commode on room air. She was alert and oriented to self, place, situation. She could speak in 2-4 word sentences and she was noted to be using accessory muscles with retractions. Clear discomfort. The patient denies fever, chest pain, abdominal pain and nausea. Long discussion had regarding current goals of care; daughter confirms interest in discharge to hospice on Monday. Reviewed option of continuing antibiotics and medication management until discharge on Monday versus decreasing these medications and focusing on comfort care at this time. The patient and daughter agreed to move forward with comfort is only today. All questions and concerns were addressed. No concerns per nursing. Reason For Visit: COPD PNEUMONIA Physical Exam Vital Signs: Temp Pulse Resp BP Pulse Ox 98.5 F 99 16 136/59 H 91 L 12/29/18 11:22 12/29/18 14:00 12/29/18 11:22 12/29/18 11:22 12/29/18 11:22 Intake & Output 12/28/18 12/29/18 12/30/18 06:59 06:59 06:59 Intake Total 1290 767 50 Balance 1290 767 50 Weight 34.5 kg 38.7 kg General appearance: PRESENT: cooperative, mild distress, well-developed, other - Cachectic; obvious discomfort Head exam: PRESENT: atraumatic, normocephalic Eye exam: PRESENT: conjunctiva pale, EOMI, PERRLA Ear exam: PRESENT: normal external ear exam Mouth exam: PRESENT: moist, tongue midline Respiratory exam: PRESENT: accessory muscle use, prolonged expiratory phas, retraction, rhonchi, symmetrical, tachypnea. ABSENT: rales, wheezes Cardiovascular exam: PRESENT: RRR. ABSENT: diastolic murmur, rubs, systolic murmur Vascular exam: PRESENT: normal capillary refill Rectal exam: PRESENT: deferred Extremities exam: PRESENT: full ROM. ABSENT: calf tenderness, clubbing, pedal edema Neurological exam: PRESENT: alert, awake, oriented to person, oriented to place, oriented to situation, CN II-XII grossly intact. ABSENT: oriented to time, motor sensory deficit Psychiatric exam: PRESENT: appropriate affect, normal mood. ABSENT: homicidal ideation, suicidal ideation Skin exam: PRESENT: dry, intact, warm. ABSENT: cyanosis, rash Results Laboratory Results: 12/28/18 05:30 12/28/18 20:37 12/28/18 20:37 Sodium 145.5 H Potassium 2.8 L* Chloride 106 Carbon Dioxide 34 H Anion Gap 6 BUN 21 H Creatinine 0.56 Est GFR ( Amer) > 60 Glucose 98 Calcium 8.9 Magnesium 2.5 H 12/28/18 12/28/18 22:04 22:04 Creatine Kinase 23 L CK-MB (CK-2) 1.03 Troponin I 0.121 Impressions: Abdomen/Pelvis CT 12/27/18 17:24 IMPRESSION: Chest: No evidence of pulmonary embolism. Persistent irregular right suprahilar/hilar masslike areas of consolidation with associated adjacent architectural distortion and groundglass opacity, stable to increased from the previous examination dated 11/14/2018. Differential considerations include worsening malignancy, development of adjacent infection, or postradiation change in the appropriate clinical setting. Likewise, the mass appears to circumferentially encase and narrow several of the pulmonary arterial vasculature. Concomitant solid nodules about both lungs are indeterminate. 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 This was present on the previous CT dated 09/12/2012. Increasing bulky mediastinal and bilateral hilar lymphadenopathy. The large subcarinal damien mass appears increasingly necrotic, now circumferentially encasing and likely narrowing the mid thoracic esophagus. As a result, the proximal third of the esophagus is dilated and fluid-filled, suggestive of obstruction. Superimposed hyperdensity about the mid thoracic esophagus most likely corresponds to a focus of retained intraluminal oral contrast material. Small right pleural effusion with associated right basilar atelectasis. Abdomen/pelvis: No acute abnormality within the abdomen or pelvis. Necrotic lymphadenopathy about the gastrohepatic ligament, indicative of metastatic disease. Indeterminate subcentimeter hypodense lesions throughout the liver parenchyma, raising the possibility of metastatic disease. TECHNICAL DOCUMENTATION: Quality ID # 436: Final reports with documentation of one or more dose reduction techniques (e.g., Automated exposure control, adjustment of the mA and/or kV according to patient size, use of iterative reconstruction technique) copyright 2010 [employer]- All Rights Reserved Chest/Abdomen CTA 12/27/18 17:27 IMPRESSION: Chest: No evidence of pulmonary embolism. Persistent irregular right suprahilar/hilar masslike areas of consolidation with associated adjacent architectural distortion and groundglass opacity, stable to increased from the previous examination dated 11/14/2018. Differential considerations include worsening malignancy, development of adjacent infection, or postradiation change in the appropriate clinical setting. Likewise, the mass appears to circumferentially encase and narrow several of the pulmonary arterial vasculature. Concomitant solid nodules about both lungs are indeterminate. 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 This was present on the previous CT dated 09/12/2012. Increasing bulky mediastinal and bilateral hilar lymphadenopathy. The large subcarinal damien mass appears increasingly necrotic, now circumferentially encasing and likely narrowing the mid thoracic esophagus. As a result, the proximal third of the esophagus is dilated and fluid-filled, suggestive of obstruction. Superimposed hyperdensity about the mid thoracic esophagus most likely corresponds to a focus of retained intraluminal oral contrast material. Small right pleural effusion with associated right basilar atelectasis. Abdomen/pelvis: No acute abnormality within the abdomen or pelvis. Necrotic lymphadenopathy about the gastrohepatic ligament, indicative of metastatic disease. Indeterminate subcentimeter hypodense lesions throughout the liver parenchyma, raising the possibility of metastatic disease. TECHNICAL DOCUMENTATION: Quality ID # [id number]: Final reports with documentation of one or more dose reduction techniques (e.g., Automated exposure control, adjustment of the mA and/or kV according to patient size, use of iterative reconstruction technique) copyright 2010 [employer]- All Rights Reserved Chest X-Ray 12/27/18 19:23 IMPRESSION: 1. Right hilar mass with associated infiltrate, likely pneumonia. The infiltrate has only slightly improved since 12/12/2018. 2. No pneumothorax or pleural effusion. Assessment and Plan - Diagnosis (1) Lung cancer Qualifiers: Laterality: right Lung location: hilum of lung Qualified Code(s): C34.01 - Malignant neoplasm of right main bronchus Is this a current diagnosis for this admission?: Yes Plan: Lung cancer with diffuse adenopathy in feeding the abdominal space. The patient's oncologist, Dr. Zimmerman, has been consulted. Patient and family hopeful to discharge to home on Monday with home hospice services. Patient and family now requesting to transition to comfort care measures. IV fluids, antibiotics, and medications reviewed and discontinued as appropriate. Start TR[employer]OR order set with IV morphine, Ativan, Decadron, Phenergan, Zofran, Benadryl, scopolamine patch, bowel regiment, and Tylenol as needed for symptom management. (2) Pneumonia Qualifiers: Laterality: right Lung location: middle lobe of lung Is this a current diagnosis for this admission?: Yes Plan: Possible postobstructive pneumonia persisting, this could be just residual from her previous pneumonia Patient and family now interested in [facility] Continue as needed nebulizer treatments Supplemental oxygen as needed for comfort. IV Ativan and morphine available for symptom management. (3) COPD with acute exacerbation Is this a current diagnosis for this admission?: Yes Plan: Comfort measures only. Supplemental oxygen and nebulizer treatments as needed. As needed IV Ativan and morphine for symptom management. (4) Dehydration Is this a current diagnosis for this admission?: Yes Plan: TR[employer] ADVISOR p.o. fluids as tolerated (5) Protein-calorie malnutrition, moderate Is this a current diagnosis for this admission?: Yes Plan: p.o. intake as tolerated (6) Comfort measures only status Is this a current diagnosis for this admission?: Yes - Time Time Spent with patient: 35 or more minutes Medications reviewed and adjusted accordingly: Yes Anticipated discharge: Hospice - Home hospice Within: within 48 hours
[2018-12-29] MEDS: ASPIRIN 325 MG TABLET PO SCH (18:39)
[2018-12-29 23:12] VITALS: BP 132/53
[2018-12-30] MEDS: MORPHINE SULFATE 10 MG/ML INJ IV PRN ×8 (01:13→23:15)
[2018-12-30] MEDS: ATROPINE SULFATE 1% OPH SOLN 5 ML BOTTLE SL SCH ×2 (01:14→06:37)
[2018-12-30] MEDS: IPRATROPIUM/ALBUTEROL 0.5-2.5 MG/3 ML AMPUL NEB PRN ×2 (03:00→19:54)
[2018-12-30] MEDS: DEXAMETHASONE SOD PHOS INJ 10 MG/1 ML VIAL IV SCH ×3 (06:37→21:31)
[2018-12-30] MEDS: FLUTICASONE NASAL SPRAY 50 MCG/SPRY 120 SPRAY/16 GM NASL SCH ×2 (10:21→21:36)
[2018-12-30] MEDS: GUAIFENESIN SYRP 200 MG/10 ML UDC PO PRN ×2 (13:17→18:27)
[2018-12-30] MEDS: ATROPINE SULFATE 1% OPH SOLN 5 ML BOTTLE SL PRN ×2 (13:21→23:08)
--- NOTE | 2018-12-30 13:22 | PDOC PROGRESS REPORT ---
Subjective Progress Note for:: 12/30/18 Subjective:: The patient is an 83-year-old female with a past medical history of lung cancer with postobstructive pneumonia, COPD, cachexia, and debility who was admitted 12/27/2018 for pneumonia, COPD exacerbation and lung cancer. The patient was seen on morning rounds with her daughter present. She was found resting in bed; bleeding soundly. She did not wake when I set her name and I did not make further attempts to wake her. She was noted to be tachypneic with accessory muscle use and retractions. She was also found to have head-bobbing and grunting with her respirations today. She is clearly has worsening respiratory function this morning. ROS is otherwise limited Per family member, her mother has been resting more comfortably with liberalized morphine. Did have a slight cough though this seems to have resolved. Long discussion this morning about the patient's worsening respiratory status and need for frequent IV administration of medications. No longer feel the patient is stable for transport. Patient's daughter understands; states that she would prefer her mother made [place] than by transport home. She had no other questions or concerns at this time. No concerns per nursing. Reason For Visit: COPD PNEUMONIA Physical Exam Vital Signs: Temp Pulse Resp BP Pulse Ox 98.6 F 121 H 12 132/53 H 85 L 12/29/18 23:09 12/30/18 07:00 12/30/18 03:04 12/29/18 23:09 12/30/18 03:04 Intake & Output 12/29/18 12/30/18 12/31/18 06:59 06:59 06:59 Intake Total 767 100 Output Total 0 Balance 767 100 Weight 38.7 kg 35.6 kg General appearance: PRESENT: severe distress, well-developed Head exam: PRESENT: atraumatic, normocephalic Mouth exam: PRESENT: dry mucosa, tongue midline Teeth exam: PRESENT: edentulous Respiratory exam: PRESENT: accessory muscle use, retraction, tachypnea, other - labored Cardiovascular exam: PRESENT: tachycardia - ST elevation on telemetry Vascular exam: PRESENT: other - Delayed cap refill Neurological exam: PRESENT: other - Sleeping soundly Skin exam: PRESENT: dry, pallor, warm Results Laboratory Results: 12/28/18 05:30 12/28/18 20:37 12/28/18 12/28/18 22:04 22:04 Creatine Kinase 23 L CK-MB (CK-2) 1.03 Troponin I 0.121 Impressions: Abdomen/Pelvis CT 12/27/18 17:24 IMPRESSION: Chest: No evidence of pulmonary embolism. Persistent irregular right suprahilar/hilar masslike areas of consolidation with associated adjacent architectural distortion and groundglass opacity, stable to increased from the previous examination dated 11/14/2018. Differential considerations include worsening malignancy, development of adjacent infection, or postradiation change in the appropriate clinical setting. Likewise, the mass appears to circumferentially encase and narrow several of the pulmonary arterial vasculature. Concomitant solid nodules about both lungs are indeterminate. 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 This was present on the previous CT dated 09/12/2012. Increasing bulky mediastinal and bilateral hilar lymphadenopathy. The large subcarinal damien mass appears increasingly necrotic, now circumferentially encasing and likely narrowing the mid thoracic esophagus. As a result, the proximal third of the esophagus is dilated and fluid-filled, suggestive of obstruction. Superimposed hyperdensity about the mid thoracic esophagus most likely corresponds to a focus of retained intraluminal oral contrast material. Small right pleural effusion with associated right basilar atelectasis. Abdomen/pelvis: No acute abnormality within the abdomen or pelvis. Necrotic lymphadenopathy about the gastrohepatic ligament, indicative of metastatic disease. Indeterminate subcentimeter hypodense lesions throughout the liver parenchyma, raising the possibility of metastatic disease. TECHNICAL DOCUMENTATION: Quality ID # 436: Final reports with documentation of one or more dose reduction techniques (e.g., Automated exposure control, adjustment of the mA and/or kV according to patient size, use of iterative reconstruction technique) copyright 2010 [employer]- All Rights Reserved Chest/Abdomen CTA 12/27/18 17:27 IMPRESSION: Chest: No evidence of pulmonary embolism. Persistent irregular right suprahilar/hilar masslike areas of consolidation with associated adjacent architectural distortion and groundglass opacity, stable to increased from the previous examination dated 11/14/2018. Differential considerations include worsening malignancy, development of adjacent infection, or postradiation change in the appropriate clinical setting. Likewise, the mass appears to circumferentially encase and narrow several of the pulmonary arterial vasculature. Concomitant solid nodules about both lungs are indeterminate. 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 This was present on the previous CT dated 09/12/2012. Increasing bulky mediastinal and bilateral hilar lymphadenopathy. The large subcarinal damien mass appears increasingly necrotic, now circumferentially encasing and likely narrowing the mid thoracic esophagus. As a result, the proximal third of the esophagus is dilated and fluid-filled, suggestive of obstruction. Superimposed hyperdensity about the mid thoracic esophagus most likely corresponds to a focus of retained intraluminal oral contrast material. Small right pleural effusion with associated right basilar atelectasis. Abdomen/pelvis: No acute abnormality within the abdomen or pelvis. Necrotic lymphadenopathy about the gastrohepatic ligament, indicative of metastatic disease. Indeterminate subcentimeter hypodense lesions throughout the liver parenchyma, raising the possibility of metastatic disease. TECHNICAL DOCUMENTATION: Quality ID # [id number]: Final reports with documentation of one or more dose reduction techniques (e.g., Automated exposure control, adjustment of the mA and/or kV according to patient size, use of iterative reconstruction technique) copyright 2011 [employer]- All Rights Reserved Chest X-Ray 12/27/18 19:23 IMPRESSION: 1. Right hilar mass with associated infiltrate, likely pneumonia. The infiltrate has only slightly improved since 12/12/2018. 2. No pneumothorax or pleural effusion. Assessment and Plan - Diagnosis (1) Lung cancer Qualifiers: Laterality: right Lung location: hilum of lung Qualified Code(s): C34.01 - Malignant neoplasm of right main bronchus Is this a current diagnosis for this admission?: Yes Plan: Lung cancer with diffuse adenopathy in feeding the abdominal space. The patient's oncologist, Dr. Zimmerman, has been consulted. Patient and family now requesting to transition to comfort care measures. IV fluids, antibiotics, and medications reviewed and have been discontinued as appropriate. Continue [facility] order set with IV morphine, Ativan, Decadron, Phenergan, Zofran, Benadryl, scopolamine patch, bowel regiment, and Tylenol as needed for symptom management. (2) Pneumonia Qualifiers: Laterality: right Lung location: middle lobe of lung Is this a current diagnosis for this admission?: Yes Plan: Possible postobstructive pneumonia persisting, this could be just residual from her previous pneumonia Patient and family now interested in [facility] Continue as needed nebulizer treatments Supplemental oxygen as needed for comfort. IV Ativan and morphine available for symptom management. (3) COPD with acute exacerbation Is this a current diagnosis for this admission?: Yes Plan: Comfort measures only. Supplemental oxygen and nebulizer treatments as needed. As needed IV Ativan and morphine for symptom management. (4) Dehydration Is this a current diagnosis for this admission?: Yes Plan: [facility] p.o. fluids as tolerated (5) Protein-calorie malnutrition, moderate Is this a current diagnosis for this admission?: Yes Plan: p.o. intake as tolerated (6) Comfort measures only status Is this a current diagnosis for this admission?: Yes - Time Time Spent with patient: 35 or more minutes Medications reviewed and adjusted accordingly: Yes
[2018-12-30] MEDS: LORAZEPAM INJ 2 MG/1 ML VIAL IV PRN ×2 (17:02→21:31)
[2018-12-31] MEDS: LORAZEPAM INJ 2 MG/1 ML VIAL IV PRN ×3 (00:38→11:52)
[2018-12-31] MEDS: MORPHINE SULFATE 10 MG/ML INJ IV PRN ×4 (01:40→13:18)
[2018-12-31] MEDS: DEXAMETHASONE SOD PHOS INJ 10 MG/1 ML VIAL IV SCH ×2 (05:19→14:53)
--- NOTE | 2018-12-31 08:04 | PDOC PROGRESS REPORT ---
Subjective Progress Note for:: 12/31/18 Subjective:: Pt doing much worse, unresponsive overnight, breathing shallow Reason For Visit: COPD PNEUMONIA Physical Exam Vital Signs: Temp Pulse Resp BP Pulse Ox 97.7 F 131 H 18 132/53 H 87 L 12/31/18 01:00 12/30/18 19:55 12/30/18 19:55 12/29/18 23:09 12/30/18 19:55 Intake & Output 12/30/18 12/31/18 01/01/19 06:59 06:59 06:59 Intake Total 100 Output Total 0 0 Balance 100 0 Weight 35.6 kg 34.9 kg General appearance: PRESENT: no acute distress Focused psych exam: PRESENT: other - seems comfortable Results Laboratory Results: 12/28/18 05:30 12/28/18 20:37 12/28/18 12/28/18 22:04 22:04 Creatine Kinase 23 L CK-MB (CK-2) 1.03 Troponin I 0.121 Impressions: Abdomen/Pelvis CT 12/27/18 17:24 IMPRESSION: Chest: No evidence of pulmonary embolism. Persistent irregular right suprahilar/hilar masslike areas of consolidation with associated adjacent architectural distortion and groundglass opacity, stable to increased from the previous examination dated 11/14/2018. Differential considerations include worsening malignancy, development of adjacent infection, or postradiation change in the appropriate clinical setting. Likewise, the mass appears to circumferentially encase and narrow several of the pulmonary arterial vasculature. Concomitant solid nodules about both lungs are indeterminate. 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 This was present on the previous CT dated 09/12/2012. Increasing bulky mediastinal and bilateral hilar lymphadenopathy. The large subcarinal damien mass appears increasingly necrotic, now circumferentially encasing and likely narrowing the mid thoracic esophagus. As a result, the proximal third of the esophagus is dilated and fluid-filled, suggestive of obstruction. Superimposed hyperdensity about the mid thoracic esophagus most likely corresponds to a focus of retained intraluminal oral contrast material. Small right pleural effusion with associated right basilar atelectasis. Abdomen/pelvis: No acute abnormality within the abdomen or pelvis. Necrotic lymphadenopathy about the gastrohepatic ligament, indicative of metastatic disease. Indeterminate subcentimeter hypodense lesions throughout the liver parenchyma, raising the possibility of metastatic disease. TECHNICAL DOCUMENTATION: Quality ID # 436: Final reports with documentation of one or more dose reduction techniques (e.g., Automated exposure control, adjustment of the mA and/or kV according to patient size, use of iterative reconstruction technique) copyright 2010 [employer]- All Rights Reserved Chest/Abdomen CTA 12/27/18 17:27 IMPRESSION: Chest: No evidence of pulmonary embolism. Persistent irregular right suprahilar/hilar masslike areas of consolidation with associated adjacent architectural distortion and groundglass opacity, stable to increased from the previous examination dated 11/14/2018. Differential considerations include worsening malignancy, development of adjacent infection, or postradiation change in the appropriate clinical setting. Likewise, the mass appears to circumferentially encase and narrow several of the pulmonary arterial vasculature. Concomitant solid nodules about both lungs are indeterminate. 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 This was present on the previous CT dated 09/12/2012. Increasing bulky mediastinal and bilateral hilar lymphadenopathy. The large subcarinal damien mass appears increasingly necrotic, now circumferentially encasing and likely narrowing the mid thoracic esophagus. As a result, the proximal third of the esophagus is dilated and fluid-filled, suggestive of obstruction. Superimposed hyperdensity about the mid thoracic esophagus most likely corresponds to a focus of retained intraluminal oral contrast material. Small right pleural effusion with associated right basilar atelectasis. Abdomen/pelvis: No acute abnormality within the abdomen or pelvis. Necrotic lymphadenopathy about the gastrohepatic ligament, indicative of metastatic disease. Indeterminate subcentimeter hypodense lesions throughout the liver parenchyma, raising the possibility of metastatic disease. TECHNICAL DOCUMENTATION: Quality ID # [id number]: Final reports with documentation of one or more dose reduction techniques (e.g., Automated exposure control, adjustment of the mA and/or kV according to patient size, use of iterative reconstruction technique) copyright 2010 [employer]- All Rights Reserved Chest X-Ray 12/27/18 19:23 IMPRESSION: 1. Right hilar mass with associated infiltrate, likely pneumonia. The infiltrate has only slightly improved since 12/12/2018. 2. No pneumothorax or pleural effusion. Assessment & Plan - Diagnosis (1) Lung cancer Qualifiers: Laterality: right Lung location: hilum of lung Qualified Code(s): C34.01 - Malignant neoplasm of right main bronchus Is this a current diagnosis for this admission?: Yes Plan: Comfort care measures, declined rapidly, will probably pass in next 24 hours - Time Time Spent with patient: 15-24 minutes
[2018-12-31] MEDS: FLUTICASONE NASAL SPRAY 50 MCG/SPRY 120 SPRAY/16 GM NASL SCH (10:13)
--- NOTE | 2018-12-31 18:19 | Death Summary ---
Summary Date : 12/31/18 Time of :: 15:30 Autopsy: No Resuscitation Status: Comfort Measures Only - Final Diagnosis (1) Acute respiratory failure with hypoxia Is this a current diagnosis for this admission?: Yes (2) Lung cancer Is this a current diagnosis for this admission?: Yes (3) Pneumonia Is this a current diagnosis for this admission?: Yes (4) COPD with acute exacerbation Is this a current diagnosis for this admission?: Yes (5) Dehydration Is this a current diagnosis for this admission?: Yes (6) Protein-calorie malnutrition, moderate Is this a current diagnosis for this admission?: Yes (7) Comfort measures only status Is this a current diagnosis for this admission?: Yes Hospital Course:: Per H&P by Dr. Robledo: GILMA WILDER is a 83 year old female with a recent past medical history of lung cancer with postobstructive pneumonia, COPD, profound debility and cachexia. She presents with shortness of breath, nausea vomiting and fever with poor appetite and weight loss. In the emergency room she is found to have a right-sided lung mass about the hilum with distorted anatomy. She receives empiric antibiotics and referred to the hospitalist for admission. She is not a candidate for chemotherapy given profound debility and advanced state she elects for DNR and considering hospice. Course: The patient was admitted for postobstructive pneumonia and empirically placed on IV cefepime and vancomycin. She received standard respiratory care set of supplemental oxygen, scheduled as needed nebulizer treatments, Mucinex, corticosteroids for underlying COPD, and pulmonary toilet. The patient's established oncologist, Dr. Zimmerman, was consulted. Dr. Zimmerman discussed with the patient's family members that her cancer was rather advanced and that there were not any medical options available. The patient and family members decided to discharge to home on home hospice services. Unfortunately, the patient's condition deteriorated rapidly. The patient and her daughter requested transition to comfort care measures only. The patient's medications were reviewed and discontinued as appropriate. Standard care set of morphine, Ativan, Zofran, Phenergan, Benadryl, pelvic protocol, and Tylenol were prescribed. The following day, the patient was noted to have several episodes of sustained tachycardia with a rate of the 180s with decreased alertness. The patient's family members were notified that she was in the active dying process. They then decided to remain on the hospital for the remainder of care. The patient expectantly the following day on 12/31/2018 at 1530 with multiple family members present.
== END 2018-12-31 15:30 | DRG 193 ==
LOC: ER 17:04 → EH 20:37 → 4W 23:48 → 4S 12-28 19:04
PROVIDERS: ADMIT Internal Medicine; ATTEND Internal Medicine
DX: J18.9 Pneumonia, unspecified organism (principal); J96.01 Acute respiratory failure with hypoxia; C34.01 Malignant neoplasm of right main bronchus; C78.7 Secondary malignant neoplasm of liver and intrahepatic bile duct; R64 Cachexia; E44.0 Moderate protein-calorie malnutrition; J43.2 Centrilobular emphysema; Z66 Do not resuscitate; I25.10 Atherosclerotic heart disease of native coronary artery without angina pectoris; I10 Essential (primary) hypertension; K22.2 Esophageal obstruction; E87.6 Hypokalemia; F32.9 Major depressive disorder, single episode, unspecified
CPT/HCPCS: 36415; 71045; 71275; 74177; 80048; 80053; 82550; 82553; 83605; 83690; 83735; 84484; 85025; 87040; 93005; 93010; 94640; 94667; 94668; 94799; 96361; 96365; 96375; 99291; A9270-GY; J0692; J0713; J1100; J1644; J1885; J2060; J2270; J2405; J3370; J3480; J3490; J7030; J7060; J7512; J7620